=== PATIENT | female | born 1970 | race Two or more races ===

== ENCOUNTER 2016-10-10 13:18 | Emergency (ER) | payer MEDICARE, MEDICAID ==
[2016-10-10 14:13] VITALS: BP 147/97
[2016-10-10] MEDS ORDERED: ASPIRIN 81 MG TABLET, CHEWABLE PO ONE (14:56)
--- NOTE | 2016-10-10 14:57 | ER Document Report ---
ED Medical Screen (RME) - General Chief Complaint: High Blood Sugar Stated Complaint: BLOOD SUGAR Time Seen by Provider: 10/10/16 14:52 Notes: Patient is a 46-year-old female, past medical history IDDM, presents with 2 days of her blood sugar elevated to 390s and 400s. In addition, she has nausea and chest pressure that is intermittent and not associated with food or exercise. PE: RRR. Lungs CTAB. I have greeted and performed a rapid initial assessment of this patient. A comprehensive ED assessment and evaluation of the patient, analysis of test results and completion of the medical decision making process will be conducted by additional ED providers. TRAVEL OUTSIDE OF THE [place] IN LAST 30 DAYS: No - Related Data Allergies/Adverse Reactions: oxycodone HCl [From Percocet] Allergy (Verified 10/10/16 14:08) Past Medical History - Past Medical History Cardiac Medical History: Reports: Hx Hypertension Neurological Medical History: Reports: Hx Migraine, Hx Seizures - "Anxiety Induced Seizures" Endocrine Medical History: Reports: Hx Diabetes Mellitus Type 2 Renal/ Medical History: Reports: Hx Kidney Stones - had surgery last dec/ jan. Denies: Hx Peritoneal Dialysis Musculoskeltal Medical History: Reports Hx Fibromyalgia Psychiatric Medical History: Reports: Hx Anxiety, Hx Depression - anxiety Past Surgical History: Reports: Hx Section - 3, Hx Cholecystectomy, Hx Kidney (Renal Surgery), Hx Orthopedic Surgery - foot surgery - Immunizations Immunizations up to date: Yes Hx Diphtheria, Pertussis, Tetanus Vaccination: Yes Physical Exam - Vital signs Vitals: Temp Pulse Resp BP Pulse Ox 98.3 F 93 20 147/97 H 98 10/10/16 14:11 10/10/16 14:11 10/10/16 14:11 10/10/16 14:11 10/10/16 14:11 Course - Vital Signs Vital signs: Temp Pulse Resp BP Pulse Ox 98.3 F 93 20 147/97 H 98 10/10/16 14:11 10/10/16 14:11 10/10/16 14:11 10/10/16 14:11 10/10/16 14:11 - Laboratory Laboratory results interpreted by me: 10/10/16 14:18 POC Glucose 252 H
[2016-10-10 15:32] LABS: ABSOLUTE EOSINOPHILS # (AUTO) 0.1 10^3/uL (0.0-0.6); ABSOLUTE LYMPHOCYTES (AUTO) 1.8 10^3/uL (0.5-4.7); ABSOLUTE MONOCYTES (AUTO) 0.7 10^3/uL (0.1-1.4); ABSOLUTE NEUT (AUTO) 6.2 10^3/uL (1.7-8.2); BASOPHILS % (AUTO) 0.4 % (0-2); EOSINOPHILS % (AUTO) 1.6 % (0-6); HEMATOCRIT 41.2 % (36.0-47.0); HEMOGLOBIN 13.7 g/dL (12.0-15.5); HGB HCT DIFFERENCE -0.1; LYMPHOCYTES % (AUTO) 20.5 % (13-45); MEAN CORPUSCULAR HEMOGLOBIN 28.1 pg (27.0-33.4); MEAN CORPUSCULAR HGB CONC 33.3 g/dL (32.0-36.0); MEAN CORPUSCULAR VOLUME 85 fl (80-97); MONOCYTES % (AUTO) 7.8 % (3-13); RED BLOOD COUNT 4.88 10^6/uL (3.72-5.28); RED CELL DISTRIBUTION WIDTH 14.1 % (11.5-14.0); SEGMENTED NEUTROPHILS % (AUTO) 69.7 % (42-78)
[2016-10-10 15:47] LABS: ALANINE AMINOTRANSFERASE 86 U/L (9-52); ALBUMIN 4.3 g/dL (3.5-5.0); ALKALINE PHOSPHATASE 81 U/L (38-126); ANION GAP 9 (5-19); ASPARTATE AMINO TRANSFERASE 47 U/L (14-36); BILIRUBIN,DIRECT 0.4 mg/dL (0.0-0.4); BILIRUBIN,TOTAL 0.6 mg/dL (0.2-1.3); BLOOD UREA NITROGEN 12 mg/dL (7-20); CALCIUM 10.5 mg/dL (8.4-10.2); CARBON DIOXIDE 30 mmol/L (22-30); CHLORIDE 101 mmol/L (98-107); CREATINE KINASE 56 U/L (30-135); GLUCOSE 233 mg/dL (75-110); LIPASE 92.6 U/L (23-300); POTASSIUM 4.4 mmol/L (3.6-5.0); SODIUM 140.4 mmol/L (137-145); TOTAL PROTEIN 7.6 g/dL (6.3-8.2)
--- NOTE | 2016-10-10 15:48 | RADIOLOGY REPORT (SQ) ---
EXAM DESCRIPTION: CHEST PA/LAT COMPLETED DATE/TIME: 10/10/2016 3:36 pm REASON FOR STUDY: chest pain COMPARISON: 03/18/2016 EXAM PARAMETERS: NUMBER OF VIEWS: two views TECHNIQUE: Digital Frontal and Lateral radiographic views of the chest acquired. RADIATION DOSE: NA LIMITATIONS: none FINDINGS: LUNGS AND PLEURA: No opacities, masses or pneumothorax. No pleural effusion. MEDIASTINUM AND HILAR STRUCTURES: No masses or contour abnormalities. HEART AND VASCULAR STRUCTURES: Heart normal size. No evidence for failure. BONES: No acute findings. HARDWARE: None in the chest. OTHER: No other significant finding. IMPRESSION: NO SIGNIFICANT RADIOGRAPHIC FINDING IN THE CHEST. TECHNICAL DOCUMENTATION: JOB ID: [id number] [employer]- All Rights Reserved
[2016-10-10 15:58] LABS: TROPONIN I < 0.012 ng/mL
--- NOTE | 2016-10-10 16:43 | ER Document Report ---
ED Blood Sugar Problem - General Chief Complaint: High Blood Sugar Stated Complaint: BLOOD SUGAR Time Seen by Provider: 10/10/16 14:52 Notes: Patient is a 46-year-old female, past medical history diabetes, waters, presents with 2 days of hyperglycemia. Her sugars this weekend were 390's and 400's. Her insulin was recently increased by her primary care physician last week. When she checks her sugar and it is elevated, she feels a dull chest ache. She is not having any chest pain at this time and denies shortness of breath, nausea , vomiting, back pain, fevers, headache, leg swelling or back pain. TRAVEL OUTSIDE OF THE [place] IN LAST 30 DAYS: No - Related Data Allergies/Adverse Reactions: oxycodone HCl [From Percocet] Allergy (Verified 10/10/16 14:08) Past Medical History - General Information source: Patient - Social History Smoking Status: Never Smoker Family History: Reviewed & Not Pertinent Patient has suicidal ideation: No Patient has homicidal ideation: No - Past Medical History Cardiac Medical History: Reports: Hx Hypertension Neurological Medical History: Reports: Hx Migraine, Hx Seizures - "Anxiety Induced Seizures" Endocrine Medical History: Reports: Hx Diabetes Mellitus Type 2 Renal/ Medical History: Reports: Hx Kidney Stones - had surgery last dec/ jan. Denies: Hx Peritoneal Dialysis Musculoskeltal Medical History: Reports Hx Fibromyalgia Psychiatric Medical History: Reports: Hx Anxiety, Hx Depression - anxiety Past Surgical History: Reports: Hx Section - 3, Hx Cholecystectomy, Hx Kidney (Renal Surgery), Hx Orthopedic Surgery - foot surgery - Immunizations Immunizations up to date: Yes Hx Diphtheria, Pertussis, Tetanus Vaccination: Yes Review of Systems - Review of Systems Notes: REVIEW OF SYSTEMS: CONSTITUTIONAL: -fevers, -chills EENT: -eye pain, -difficulty swallowing, -nasal congestion CARDIOVASCULAR: +chest pain, -syncope. RESPIRATORY: -cough, -SOB GASTROINTESTINAL: -abdominal pain, - nausea, -vomiting, -diarrhea GENITOURINARY: -dysuria, -hematuria MUSCULOSKELETAL: -back pain, -neck pain SKIN: -rash or skin lesions. HEMATOLOGIC: -easy bruising or bleeding. LYMPHATIC: -swollen, enlarged glands. NEUROLOGICAL: -altered mental status or loss of consciousness, -headache, - neurologic symptoms PSYCHIATRIC: -anxiety, -depression. ALL OTHER SYSTEMS REVIEWED AND NEGATIVE. Physical Exam - Vital signs Vitals: Temp Pulse Resp BP Pulse Ox 98.3 F 93 20 147/97 H 98 10/10/16 14:11 10/10/16 14:11 10/10/16 14:11 10/10/16 14:11 10/10/16 14:11 - Notes Notes: PHYSICAL EXAMINATION: GENERAL: Well-appearing, well-nourished and in no acute distress. HEAD: Atraumatic, normocephalic. EYES: Pupils equal round and reactive to light, extraocular movements intact, sclera anicteric, conjunctiva are normal. ENT: nares patent, oropharynx clear without exudates. Moist mucous membranes. NECK: Normal range of motion, supple without lymphadenopathy LUNGS: Breath sounds clear to auscultation bilaterally and equal. No wheezes rales or rhonchi. HEART: Regular rate and rhythm without murmurs ABDOMEN: Soft, nontender, normoactive bowel sounds. No guarding, no rebound. No masses appreciated. EXTREMITIES: Normal range of motion, no pitting or edema. No cyanosis. NEUROLOGICAL: Cranial nerves grossly intact. Normal speech, normal gait. Normal sensory and motor exams. PSYCH: Normal mood, normal affect. SKIN: Warm, Dry, normal turgor, no rashes or lesions noted. Course - Re-evaluation Re-evalutation: Pt without any chest pain. Blood glucose is 230 and she does not have an anion gap. EKG and troponin are unremarkable. HEART score 3. PERC naegative. Atypical for aortic dissection. Instructed patient to follow-up with her primary care physician for further evaluation of her chest pain and adjust her diabetes medications. - Vital Signs Vital signs: Temp Pulse Resp BP Pulse Ox 98.3 F 93 20 147/97 H 98 10/10/16 14:11 10/10/16 14:11 10/10/16 14:11 10/10/16 14:11 10/10/16 14:11 - Laboratory Result Diagrams: 10/10/16 15:20 10/10/16 15:20 Laboratory results interpreted by me: 10/10/16 10/10/16 10/10/16 14:18 15:20 15:20 RDW 14.1 H Creatinine 0.50 L Glucose 233 H POC Glucose 252 H Calcium 10.5 H AST 47 H ALT 86 H - Diagnostic Test Radiology reviewed: Image reviewed, Reports reviewed Radiology results interpreted by me: CXR: NAD - EKG Interpretation by Me EKG shows normal: Sinus rhythm, [place], Intervals, QRS Complexes, ST-T Waves Rate: Normal Discharge - Discharge Clinical Impression: Hyperglycemia Chest pain Qualifiers: Chest pain type: unspecified Qualified Code(s): R07.9 - Chest pain, unspecified Condition: Stable Disposition: HOME, SELF-CARE Additional Instructions: Your blood sugar was 232 today. Your EKG and blood test looking at your heart does not show any evidence of a heart attack. You must follow-up with your primary care physician to have your insulin adjusted and for further evaluation of your heart. Return to the ER if you notice any worsening pain or you have any other concerns. HYPERGLYCEMIA (HIGH BLOOD SUGAR): You have an abnormally high blood sugar. Not all high blood sugar requires long-term treatment. High blood sugar can be due to medications, , or the stress of illness. (These cases are "borderline diabetes.") If the doctor feels your high blood sugar might resolve with time, you may not require treatment now. It's very important that you follow through, to see if the blood sugar returns to normal levels. Uncontrolled high blood sugar leads to early heart disease, strokes, nerve damage, eye damage, and kidney damage. Call the physician if there is faintness, excess sleepiness, or very rapid breathing. DIABETES: You have an abnormally high blood sugar, suspicious for diabetes. Not all high blood sugar requires long-term treatment. High blood sugar can be due to medications, , or the stress of illness. (These cases are "borderline diabetes.") If the doctor feels your high blood sugar might get better with time, you may not require treatment now. It's very important that you follow through. Uncontrolled high blood sugar leads to early heart disease, strokes, nerve damage, eye damage, and kidney damage. All diabetics should follow a diet designed to control the blood sugar. Overweight diabetics should exercise regularly and lose weight. If this is not sufficient to control the blood sugar, pills or insulin shots are necessary. Younger people who develop diabetes almost always require insulin daily. Home testing of blood sugars or urine sugar is required. Diabetic teaching is available to help you figure insulin doses and monitor the blood sugar. Call the physician if there is faintness, excess sleepiness, or very rapid breathing. If hypoglycemia (LOW blood sugar) develops, symptoms are shakiness, weakness, sweating, and confusion. In this case, you should eat or drink something with sugar at once. INSULIN: Insulin is a natural hormone that lowers blood sugar. Normal blood sugar prevents complications of diabetes. For most diabetics, insulin is the best way to treat the illness. Be sure you know how to measure the insulin correctly. Insulin is measured in "units." There are three types of insulin: N (NPH or long acting), R (regular or short acting), and L (Lente or very long acting). Be sure you are using the right amount of each type. Insulin must be injected into the fat. You can use the abdomen, upper arms , and thighs. Select a different injection site every time. Wipe the site with alcohol before injecting. When first starting insulin, some adjusting of the insulin dose is necessary. Keep a record of each insulin dose and time of injection, and of the blood sugar and the time you test it. Sometimes insulin can make the blood sugar too low. If you become dizzy, sweaty, shaky, or confused, you may be having a hypoglycemic episode. Immediately use juice or some other sweet food. Call the doctor if the symptoms don't go away. ORAL HYPOGLYCEMIC MEDICATION: Oral hypoglycemics are medicines that lower blood sugar in diabetics. They are not effective for younger diabetics who require insulin. Some brands are tolbutamide, Orinase, glipizide, Glucotrol, glyburide, DiaBeta, Glynase, and Micronase. Some medications can increase or decrease the effect of Diabinese. Examples are Clofibrate (Atromid-S), phenylbutazone (Butazolidin), aspirin, sulfonamides, Coumadin, allopurinol (Zyloprim), probenecid (Benemid), acetazolamide (Diamox), beta blockers, steroids, estrogens, Indocin, INH, Levothyroxine, nicotinic acid, Diflucan, Dilantin, and thiazide diuretics. Be sure your doctor knows all the medicines you take, and talk to your doctor before making any changes in your medicines. If you develop symptoms of shakiness, sweats, and lightheadedness, your blood sugar may have gone too low. Eat or drink a small amount of sweet food. If symptoms don't go away, call your doctor. FOLLOW-UP CARE: If you have been referred to a physician for follow-up care, call the physician s office for an appointment as you were instructed or within the next two days. If you experience worsening or a significant change in your symptoms, notify the physician immediately or return to the Emergency Department at any time for re-evaluation.
--- NOTE | 2016-10-10 18:42 | EKG REPORT ---
SEVERITY:- OTHERWISE NORMAL ECG - SINUS RHYTHM LEFT AXIS DEVIATION : Confirmed by: Benigno Marin MD 10-Oct-2016 18:41:46
== END 2016-10-10 16:47 | disposition home or self-care (01) ==
LOC: ER 13:18
DX: E11.65 Type 2 diabetes mellitus with hyperglycemia (principal); R07.9 Chest pain, unspecified; I10 Essential (primary) hypertension; Z79.4 Long term (current) use of insulin; Z88.6 Allergy status to analgesic agent; Z87.442 Personal history of urinary calculi; Z90.49 Acquired absence of other specified parts of digestive tract
CPT/HCPCS: 93005; 99285; 36415; 82962; 82550; 83690; 85025; 80053; 84484; 83880; 71020; 93010; A9270

== ENCOUNTER 2016-11-20 16:39 | Emergency (ER) | payer MEDICARE, MEDICAID ==
[2016-11-20 16:46] VITALS: BP 195/108
[2016-11-20] MEDS ORDERED: KETOROLAC TROMETHAMINE INJ/PF 30 MG/1 ML SDV IV ONE (17:01)
[2016-11-20] MEDS ORDERED: ONDANSETRON HCL INJ/PF 4 MG/2 ML SDV IV ONE (17:01)
[2016-11-20] MEDS ORDERED: MORPHINE SULFATE 10 MG/ML INJ IV ONE (17:01)
--- NOTE | 2016-11-20 17:04 | ER Document Report ---
ED GI/ - General Chief Complaint: Flank Pain Stated Complaint: RIGHT FLANK PAIN Time Seen by Provider: 11/20/16 16:55 Notes: The patient is a 46-year-old female, past medical history renal mass, presents with 2 days of intermittent right flank pain and passing kidney stones at home. She said the pain got so severe today that she could not handle it, even with Motrin and tramadol. She is noticing hematuria, nausea, vomiting and frequency of urination. She was following with Dr. Young (Urology) for her renal mass, but was told that it could be monitored. She denies fevers, hematemesis, diarrhea, constipation, headache, rash, chest pain or shortness of breath. TRAVEL OUTSIDE OF THE [place] IN LAST 30 DAYS: No - Related Data Allergies/Adverse Reactions: hydrocodone Allergy (Verified 11/20/16 16:53) oxycodone HCl [From Percocet] Allergy (Verified 11/20/16 16:42) Past Medical History - General Information source: Patient - Social History Smoking Status: Current Every Day Smoker Chew tobacco use (# tins/day): No Frequency of alcohol use: None Drug Abuse: None Family History: Reviewed & Not Pertinent Patient has suicidal ideation: No Patient has homicidal ideation: No - Past Medical History Cardiac Medical History: Reports: Hx Hypertension Neurological Medical History: Reports: Hx Migraine, Hx Seizures - "Anxiety Induced Seizures" Endocrine Medical History: Reports: Hx Diabetes Mellitus Type 2 Renal/ Medical History: Reports: Hx Kidney Stones - had surgery last dec/ jan. Denies: Hx Peritoneal Dialysis Musculoskeltal Medical History: Reports Hx Fibromyalgia Psychiatric Medical History: Reports: Hx Anxiety, Hx Depression - anxiety Past Surgical History: Reports: Hx Section - 3, Hx Cholecystectomy, Hx Kidney (Renal Surgery), Hx Orthopedic Surgery - foot surgery - Immunizations Immunizations up to date: Yes Hx Diphtheria, Pertussis, Tetanus Vaccination: Yes Review of Systems - Review of Systems Notes: REVIEW OF SYSTEMS: CONSTITUTIONAL: -fevers, -chills EENT: -eye pain, -difficulty swallowing, -nasal congestion CARDIOVASCULAR:-chest pain, -syncope. RESPIRATORY: -cough, -SOB GASTROINTESTINAL: -abdominal pain, - nausea, -vomiting, -diarrhea GENITOURINARY: -dysuria, +hematuria MUSCULOSKELETAL: +right flank pain, -neck pain SKIN: -rash or skin lesions. HEMATOLOGIC: -easy bruising or bleeding. LYMPHATIC: -swollen, enlarged glands. NEUROLOGICAL: -altered mental status or loss of consciousness, -headache, - neurologic symptoms PSYCHIATRIC: -anxiety, -depression. ALL OTHER SYSTEMS REVIEWED AND NEGATIVE. Physical Exam - Vital signs Vitals: Temp Pulse Resp BP Pulse Ox 98.7 F 83 20 195/108 H 97 11/20/16 16:45 11/20/16 16:45 11/20/16 16:45 11/20/16 16:45 11/20/16 16:45 - Notes Notes: PHYSICAL EXAMINATION: GENERAL: Uncomfortable. HEAD: Atraumatic, normocephalic. EYES: Pupils equal round and reactive to light, extraocular movements intact, sclera anicteric, conjunctiva are normal. ENT: nares patent, oropharynx clear without exudates. Moist mucous membranes. NECK: Normal range of motion, supple without lymphadenopathy LUNGS: Breath sounds clear to auscultation bilaterally and equal. No wheezes rales or rhonchi. HEART: Regular rate and rhythm without murmurs ABDOMEN: Soft, nontender, normoactive bowel sounds. No guarding, no rebound. No masses appreciated. EXTREMITIES: Normal range of motion, no pitting or edema. No cyanosis. NEUROLOGICAL: Cranial nerves grossly intact. Normal speech, normal gait. Normal sensory and motor exams. PSYCH: Normal mood, normal affect. SKIN: Warm, Dry, normal turgor, no rashes or lesions noted. Course - Re-evaluation Re-evalutation: Patient has a 3 mm stone on the right. Labs are unremarkable, other than a slight leukocytosis, most likely stress-induced because there are no signs of infection on her urinalysis. Instructed her to continue anti-inflammatories, her tramadol at home and Tylenol No. 3 for severe pain with antiemetics and follow-up at urology. Also instructed patient to have her blood pressure rechecked at her primary care office it is elevated here, most likely due to the pain. Given return precautions and she understands. - Vital Signs Vital signs: Temp Pulse Resp BP Pulse Ox 98.7 F 83 20 195/108 H 97 11/20/16 16:45 11/20/16 16:45 11/20/16 16:45 11/20/16 16:45 11/20/16 16:45 - Laboratory Result Diagrams: 11/20/16 17:10 11/20/16 17:10 Laboratory results interpreted by me: 11/20/16 11/20/16 11/20/16 17:05 17:10 17:10 WBC 12.4 H RDW 14.2 H Absolute Neutrophils 8.9 H Calcium 10.4 H Urine Protein 30 H Urine Blood LARGE H - Diagnostic Test Radiology reviewed: Image reviewed, Reports reviewed Radiology results interpreted by me: CT A/P: 1. Obstructive uropathy on the right. Moderate hydronephrosis due to a proximal ureteral stone measuring just under 3 mm. Discharge - Discharge Clinical Impression: Kidney stone on right side Condition: Stable Disposition: HOME, SELF-CARE Additional Instructions: KIDNEY STONE: You are passing or have passed a kidney stone. These stones are usually due to increased calcium or uric acid concentrations in your urine. Stones within the kidney itself are not painful. The pain occurs as the stone leaves the kidney to pass down the long tube, called the ureter, leading to the bladder. If the stone is small, it will usually pass by itself. Most patients can pass the stone at home. You will usually receive medications for pain, nausea or vomiting, and sometimes a medication to assist in passing the kidney stone. However, if the pain is very severe or if vomiting prevents you from taking oral pain medications, you may need to return for further treatment. Drink three or four quarts of fluids per day. You will be given pain medication (if needed) and urine strainers. Strain all your urine to see if the stone passes. If your doctor has asked you to bring the stone in for analysis, return with the stone once it has passed. Return if pain or vomiting become severe, if you develop a high fever, if you are unable to pass your urine, or if other unusual symptoms occur. TORADOL INJECTION: You have been given an injection of ketorolac tromethamine (Toradol). This is an excellent, safe drug for pain control. It also has potent antiinflammatory action. You should have significant pain relief within about one hour. Toradol is not addicting and is non-sedating. It does not interfere with driving or work. Call or return if you develop itching, hives, shortness of breath, or rash. PAIN MEDICATION INJECTION: You have received an injection of a pain medication. You should experience significant pain relief within 45 minutes. This drug is a narcotic - - it will impair your judgement, slow your reaction time and make you sleepy ( as well as relieve your pain). Narcotics also can cause nausea. You should not drive, work with machinery, or perform any task requiring mental alertness until all effects of the medication are gone -- six to eight hours. Do not take any alcohol, or sedatives, and do not take any other medication without checking with your physician. ANTINAUSEA MEDICATION: You have been given a medication to suppress nausea and vomiting. This type of medication can be given as a shot, pill, or suppository. It will usually last for many hours. Pills and shots usually last six to eight hours, suppositories last about 12 hours. For the typical illness, only one or two doses of the medication may be necessary. Mild lightheadedness may occur. This type of medicine can cause drowsiness. Do not drive or operate dangerous machinery while under its influence. Do not mix with alcohol. See your doctor at once if you have muscle spasms or tightness, or uncontrollable motions (particularly of the neck, mouth, or jaw). Persistent vomiting or severe lightheadedness should also be evaluated by the physician. ORAL NARCOTIC MEDICATION: You have been given a prescription for pain control. This medication is a narcotic. It's best taken with food, as nausea can result if taken on an empty stomach. Don't operate machinery or drive within six hours of taking this medication. Do not combine this medicine with alcohol, or with any medication which can cause sedation (such as cold tablets or sleeping pills) unless you get permission from the physician. Narcotics tend to cause constipation. If possible, drink plenty of fluids and eat a diet high in fiber and fruits. Please be aware that prescription narcotics also have the potential for abuse. People become addicted to these medications because of the general sense of wellbeing that they induce. This feeling along with a significant reduction in tension, anxiety, and aggression provides a stimulating seductive quality to these drugs. Once your pain is under control, we encourage you to discard your unused narcotics. FOLLOW-UP CARE: If you have been referred to a physician for follow-up care, call the physician s office for an appointment as you were instructed or within the next two days. If you experience worsening or a significant change in your symptoms, notify the physician immediately or return to the Emergency Department at any time for re-evaluation. Prescriptions: Acetaminophen with Codeine [Tylenol #3 Tablet] 1 each PO Q4HP PRN #10 tablet PRN Reason: Ondansetron [Zofran Odt 4 mg Tablet] 1 - 2 tab PO Q4H PRN #15 tab.rapdis PRN Reason: For Nausea/Vomiting Forms: Elevated Blood Pressure Referrals: CALEB YOUNG MD [ACTIVE STAFF] - Follow up as needed
[2016-11-20 17:39] LABS: ABSOLUTE BASOPHILS # (AUTO) 0.1 10^3/uL (0.0-0.2); ABSOLUTE EOSINOPHILS # (AUTO) 0.2 10^3/uL (0.0-0.6); ABSOLUTE LYMPHOCYTES (AUTO) 2.4 10^3/uL (0.5-4.7); ABSOLUTE MONOCYTES (AUTO) 0.8 10^3/uL (0.1-1.4); ABSOLUTE NEUT (AUTO) 8.9 10^3/uL (1.7-8.2); BASOPHILS % (AUTO) 0.5 % (0-2); EOSINOPHILS % (AUTO) 1.7 % (0-6); HEMATOCRIT 42.4 % (36.0-47.0); HEMOGLOBIN 13.6 g/dL (12.0-15.5); HGB HCT DIFFERENCE -1.6; LYMPHOCYTES % (AUTO) 19.5 % (13-45); MEAN CORPUSCULAR HEMOGLOBIN 27.3 pg (27.0-33.4); MEAN CORPUSCULAR VOLUME 85 fl (80-97); MONOCYTES % (AUTO) 6.6 % (3-13); RED BLOOD COUNT 4.97 10^6/uL (3.72-5.28); RED CELL DISTRIBUTION WIDTH 14.2 % (11.5-14.0); SEGMENTED NEUTROPHILS % (AUTO) 71.7 % (42-78); WHITE BLOOD COUNT 12.4 10^3/uL (4.0-10.5)
[2016-11-20 17:48] LABS: APPEARANCE,URINE CLOUDY; BILIRUBIN,URINE NEGATIVE (NEGATIVE); CALCIUM OXALATE CRYSTALS,URINE FEW /HPF; GLUCOSE, URINE NEGATIVE (NEGATIVE); KETONES,URINE NEGATIVE (NEGATIVE); LEUKOCYTE ESTERASE,URINE NEGATIVE (NEGATIVE); NITRITE,URINE NEGATIVE (NEGATIVE); PROTEIN,URINE 30 mg/dL (NEGATIVE); URINE SPECIFIC GRAVITY 1.017; UROBILINOGEN,URINE NEGATIVE mg/dL (<2.0)
[2016-11-20 17:52] LABS: ALANINE AMINOTRANSFERASE 46 U/L (9-52); ALBUMIN 4.3 g/dL (3.5-5.0); ALKALINE PHOSPHATASE 77 U/L (38-126); ANION GAP 10 (5-19); ASPARTATE AMINO TRANSFERASE 23 U/L (14-36); BILIRUBIN,DIRECT 0.3 mg/dL (0.0-0.4); BILIRUBIN,TOTAL 0.3 mg/dL (0.2-1.3); BLOOD UREA NITROGEN 12 mg/dL (7-20); CALCIUM 10.4 mg/dL (8.4-10.2); CARBON DIOXIDE 26 mmol/L (22-30); CHLORIDE 105 mmol/L (98-107); CREATININE RESULT 0.55 mg/dL (0.52-1.25); GLUCOSE 101 mg/dL (75-110); LIPASE 103.7 U/L (23-300); POTASSIUM 4.4 mmol/L (3.6-5.0); SODIUM 141.1 mmol/L (137-145)
--- NOTE | 2016-11-20 17:54 | RADIOLOGY REPORT (SQ) ---
EXAM DESCRIPTION: CT LTD RENAL STONE PROTOCOL ON COMPLETED DATE/TIME: 11/20/2016 5:39 pm REASON FOR STUDY: right flank pain COMPARISON: 2016. TECHNIQUE: CT scan of the abdomen and pelvis performed without intravenous or oral contrast. Images reviewed with lung, soft tissue, and bone windows. Reconstructed coronal and sagittal MPR images revi ewed. All images stored on PACS. All CT scanners at this facility use dose modulation, iterative reconstruction, and/or weight based d osing when appropriate to reduce radiation dose to as low as reasonably achievable (ALARA). [facility]: Dose Right [facility]: CareDose [facility]: Dose Right [facility]: Teradose 4D [facility]: [employer] RADIATION DOSE: Up-to-date CT equipment and radiation dose reduction techniques were employed. CTDIv ol: 10.1 mGy. DLP: 559 mGy-cm.mGy. LIMITATIONS: None. FINDINGS: LOWER CHEST: No significant findings. No nodules or infiltrates. NON-CONTRASTED LIVER, SPLEEN, ADRENALS: Liver and spleen normal. Chronic mild adrenal thickening, st able. PANCREAS: No masses. No peripancreatic inflammatory changes. GALLBLADDER: Surgically absent. RIGHT KIDNEY AND URETER: Moderate hydronephrosis. Dilatation of the very proximal ureter. This appe ars to be due to a stone measuring less than 3 mm which lies just over 3 cm beyond the pelvic-uretera l junction. Additional multifocal nonobstructing stones. LEFT KIDNEY AND URETER: Exophytic septated or multiloculated cyst off the lower pole, stable. Minima l faint associated calcifications. This lesion measures less than 5 cm maximal dimension. No hydron ephrosis. AORTA AND RETROPERITONEUM: No aneurysm. No retroperitoneal masses or adenopathy. BOWEL AND PERITONEAL CAVITY: No obvious masses or inflammatory changes. No free fluid. APPENDIX: Normal. PELVIS, BLADDER, AND ABDOMINAL WALL:No abnormal masses. No free fluid. Bladder normal. BONES: No significant findings. OTHER: No other significant finding. IMPRESSION: 1. Obstructive uropathy on the right. Moderate hydronephrosis due to a proximal uretera l stone measuring just under 3 mm. TECHNICAL DOCUMENTATION: JOB ID: [id number] Quality ID # [id number]: Final reports with documentation of one or more dose reduction techniques (e.g., Au tomated exposure control, adjustment of the mA and/or kV according to patient size, use of iterative reconstruction technique) 2010 [employer]- All Rights Reserved
== END 2016-11-20 18:20 | disposition home or self-care (01) ==
LOC: ER 16:39
DX: N13.2 Hydronephrosis with renal and ureteral calculous obstruction (principal); D72.829 Elevated white blood cell count, unspecified; R11.2 Nausea with vomiting, unspecified; R35.0 Frequency of micturition; R31.0 Gross hematuria; F17.200 Nicotine dependence, unspecified, uncomplicated; I10 Essential (primary) hypertension; E11.9 Type 2 diabetes mellitus without complications; Z88.5 Allergy status to narcotic agent
CPT/HCPCS: 99284; 96374; 96375; 36415; 83690; 85025; 80053; 81001; 76380; J1885; J2270; J2405

== ENCOUNTER 2016-11-22 23:26 | Emergency (ER) | payer MEDICARE, MEDICAID ==
[2016-11-23] MEDS ORDERED: NORMAL SALINE 1000 ML 1,000 ML IV ONE (01:08)
[2016-11-23] MEDS ORDERED: ONDANSETRON HCL INJ/PF 4 MG/2 ML SDV IV ONE (01:08)
[2016-11-23] MEDS ORDERED: MORPHINE SULFATE 10 MG/ML INJ IV ONE (01:08)
[2016-11-23] MEDS ORDERED: TAMSULOSIN HCL 0.4 MG CAP.SR.24H PO ONE (01:10)
[2016-11-23] MEDS ORDERED: KETOROLAC TROMETHAMINE INJ/PF 30 MG/1 ML SDV IV ONE (01:13)
--- NOTE | 2016-11-23 01:36 | ER Document Report ---
ED General - General Chief Complaint: Possible Kidney Stone Stated Complaint: RIGHT FLANK PAIN Time Seen by Provider: 11/23/16 00:55 Mode of Arrival: Ambulatory Information source: Patient TRAVEL OUTSIDE OF THE [place] IN LAST 30 DAYS: No - HPI Recently seen / treated by doctor: Yes Notes: Patient is a 46-year-old female presents to the emergency department with report of right flank pain that she had 3 days ago and had a CT scan which showed a proximal right ureteral stone. The patient had associated right flank to right lower quadrant pain with some nausea and vomiting. The patient had a urine specimen just showed hematuria but otherwise normal lab work. The patient states that she passed a stone consistent with the 3 mm stone noted on CT scan and her pain seemed to subside until 2100 this evening when the pain returned associated with nausea and vomiting. Pain is right flank to right lower quadrant region. No hematemesis. No vaginal discharge. No dysuria. Patient's previous CT scan also evidenced right renal stones measuring 4 mm x 2. - Related Data Allergies/Adverse Reactions: hydrocodone Allergy (Verified 11/23/16 01:46) oxycodone HCl [From Percocet] Allergy (Verified 11/23/16 01:46) Past Medical History - General Information source: Patient - Social History Smoking Status: Never Smoker Frequency of alcohol use: None Drug Abuse: None Lives with: Family Family History: Reviewed & Not Pertinent - Past Medical History Cardiac Medical History: Reports: Hx Hypertension Neurological Medical History: Reports: Hx Migraine, Hx Seizures - "Anxiety Induced Seizures" Endocrine Medical History: Reports: Hx Diabetes Mellitus Type 2 Renal/ Medical History: Reports: Hx Kidney Stones - had surgery last dec/ jan. Denies: Hx Peritoneal Dialysis Musculoskeltal Medical History: Reports Hx Fibromyalgia Psychiatric Medical History: Reports: Hx Anxiety, Hx Depression - anxiety Past Surgical History: Reports: Hx Section - 3, Hx Cholecystectomy, Hx Kidney (Renal Surgery), Hx Orthopedic Surgery - foot surgery - Immunizations Immunizations up to date: Yes Hx Diphtheria, Pertussis, Tetanus Vaccination: Yes Review of Systems - Review of Systems Notes: REVIEW OF SYSTEMS: CONSTITUTIONAL : Denies fever, chills, or sweats. EENT: Denies eye, ear, throat, or mouth pain or symptoms. Denies nasal or sinus congestion or discharge. Denies throat, tongue, or mouth swelling or difficulty swallowing. CARDIOVASCULAR: Denies chest pain. Denies palpitations or racing or irregular heart beat. Denies ankle edema. RESPIRATORY: Denies cough, cold, or chest congestion. Denies shortness of breath, difficulty breathing, or wheezing. GASTROINTESTINAL: Denies abdominal distention. Denies diarrhea. Denies blood in vomitus, stools, or per rectum. Denies black, tarry stools. Denies constipation. GENITOURINARY: Patient reports dysuria and frequency with occasional hematuria. FEMALE GENITOURINARY: Denies vaginal bleeding, heavy or abnormal periods, irregular periods. Denies vaginal discharge or odor. MUSCULOSKELETAL: Denies neck pain or stiffness. Denies joint pain or swelling. SKIN: Denies rash, lesions or sores. HEMATOLOGIC : Denies easy bruising or bleeding. LYMPHATIC: Denies swollen, enlarged glands. NEUROLOGICAL: Denies confusion or altered mental status. Denies passing out or loss of consciousness. Denies dizziness or lightheadedness. Denies headache. Denies weakness or paralysis or loss of use of either side. Denies problems with gait or speech. Denies sensory loss, numbness, or tingling. Denies seizures. PSYCHIATRIC: Denies anxiety or stress. Denies depression, suicidal ideation, or homicidal ideation. ALL OTHER SYSTEMS REVIEWED AND NEGATIVE. Dictation was performed using [employer] voice recognition software Physical Exam - Vital signs Vitals: Temp Pulse Resp BP Pulse Ox 98.2 F 89 18 182/119 H 98 11/23/16 00:18 11/23/16 00:18 11/23/16 00:18 11/23/16 00:18 11/23/16 00:18 - Notes Notes: PHYSICAL EXAMINATION: GENERAL: Well-appearing, well-nourished in obvious distress with nausea holding her back. HEAD: Atraumatic, normocephalic. EYES: Pupils equal round and reactive to light, extraocular movements intact, conjunctiva are normal. ENT: Nares patent, oropharynx clear without exudates. Moist mucous membranes. NECK: Normal range of motion, supple without lymphadenopathy LUNGS: Breath sounds clear to auscultation bilaterally and equal. No wheezes rales or rhonchi. HEART: Regular rate and rhythm without murmurs ABDOMEN: Soft, nondistended abdomen. No guarding, no rebound. No masses appreciated. Female : deferred Musculoskeletal: Normal range of motion, no pitting or edema. No cyanosis. R flank pain rad to R lateral abd. NEUROLOGICAL: Cranial nerves grossly intact. Normal speech, normal gait. Normal sensory, motor exams PSYCH: Normal mood, normal affect. SKIN: Warm, Dry, normal turgor, no rashes or lesions noted. Course - Re-evaluation Re-evalutation: 11/23/16 01:36 Urine was strained. Patient was given normal saline bolus and given IV Toradol Zofran and morphine. Patient was also given p.o. Flomax. 11/23/16 01:36 Stone may have dropped lower vs new stone passing. No evidence for renal insuffic or anemia. No UTI on prior UA. 11/23/16 03:49 Patient had adequate relief of her pain and felt stable for discharge. 11/23/16 03:51 Repeat blood pressure 149/99. 11/23/16 03:55 - Vital Signs Vital signs: Temp Pulse Resp BP Pulse Ox 98.2 F 89 16 149/99 H 97 11/23/16 00:18 11/23/16 00:18 11/23/16 03:10 11/23/16 03:10 11/23/16 03:10 - Laboratory Result Diagrams: 11/23/16 01:30 11/23/16 01:30 Laboratory results interpreted by me: 11/23/16 11/23/16 01:30 01:30 WBC 11.6 H MCHC 31.8 L RDW 14.3 H Glucose 115 H Calcium 10.7 H AST 37 H ALT 72 H Discharge - Discharge Clinical Impression: Ureteral stone, Kidney stone on right side Condition: Stable Disposition: HOME, SELF-CARE Instructions: Kidney Stone ([facility]) Additional Instructions: Drink plenty fluids. Strain your urine to make sure you pass the stone. Follow-up with urology if you do not pass a stone or the pain does not resolve. Return to the ED in case of intractable pain, fever, uncontrolled vomiting. Prescriptions: Hydromorphone HCl [Dilaudid 2 mg Tablet] 2 mg PO Q4HP PRN #30 tablet PRN Reason: Ondansetron [Zofran Odt 4 mg Tablet] 1 tab PO Q8HP PRN #10 tab.rapdis PRN Reason: For Nausea/Vomiting Tamsulosin HCl [Flomax 0.4 mg Cap.sr] 0.4 mg PO DAILY #20 cap.sr.24h Referrals: ESSIE GREGG MD [NO LOCAL MD] - Follow up as needed
[2016-11-23 01:55] LABS: ABSOLUTE BASOPHILS # (AUTO) 0.1 10^3/uL (0.0-0.2); ABSOLUTE EOSINOPHILS # (AUTO) 0.3 10^3/uL (0.0-0.6); ABSOLUTE LYMPHOCYTES (AUTO) 2.4 10^3/uL (0.5-4.7); ABSOLUTE NEUT (AUTO) 7.8 10^3/uL (1.7-8.2); BASOPHILS % (AUTO) 0.7 % (0-2); EOSINOPHILS % (AUTO) 2.9 % (0-6); HEMATOCRIT 42.3 % (36.0-47.0); HEMOGLOBIN 13.5 g/dL (12.0-15.5); HGB HCT DIFFERENCE -1.8; LYMPHOCYTES % (AUTO) 20.7 % (13-45); MEAN CORPUSCULAR HEMOGLOBIN 27.2 pg (27.0-33.4); MEAN CORPUSCULAR HGB CONC 31.8 g/dL (32.0-36.0); MEAN CORPUSCULAR VOLUME 86 fl (80-97); MONOCYTES % (AUTO) 8.7 % (3-13); RED BLOOD COUNT 4.94 10^6/uL (3.72-5.28); RED CELL DISTRIBUTION WIDTH 14.3 % (11.5-14.0); WHITE BLOOD COUNT 11.6 10^3/uL (4.0-10.5)
[2016-11-23 02:04] LABS: ALANINE AMINOTRANSFERASE 72 U/L (9-52); ALBUMIN 4.5 g/dL (3.5-5.0); ALKALINE PHOSPHATASE 87 U/L (38-126); ANION GAP 13 (5-19); ASPARTATE AMINO TRANSFERASE 37 U/L (14-36); BILIRUBIN,DIRECT 0.3 mg/dL (0.0-0.4); BILIRUBIN,TOTAL 0.4 mg/dL (0.2-1.3); BLOOD UREA NITROGEN 17 mg/dL (7-20); CALCIUM 10.7 mg/dL (8.4-10.2); CARBON DIOXIDE 29 mmol/L (22-30); CHLORIDE 100 mmol/L (98-107); CREATININE RESULT 0.97 mg/dL (0.52-1.25); GLUCOSE 115 mg/dL (75-110); POTASSIUM 4.8 mmol/L (3.6-5.0); TOTAL PROTEIN 7.9 g/dL (6.3-8.2)
--- NOTE | 2016-11-23 03:25 | RADIOLOGY REPORT (SQ) ---
EXAM DESCRIPTION: KUB/ABDOMEN (SINGLE VIEW) COMPLETED DATE/TIME: 11/23/2016 2:25 am REASON FOR STUDY: R renal stones COMPARISON: CT, 11/20/2016. NUMBER OF VIEWS: One view. TECHNIQUE: Supine radiographic image of the abdomen acquired. LIMITATIONS: None. FINDINGS: BOWEL GAS PATTERN: Moderate stool retention of the right colon. CALCIFICATIONS: 2, 0.2 cm calcifications of the right paracentral pelvis may indicate a right UVJ/adam dder stones new/progressed compared with CT from 11/20/2016. Punctate bilateral nephrolithiasis. SOFT TISSUES: No gross mass or suggestion of organomegaly. HARDWARE: Right upper abdominal clips. BONES: No acute fracture. No worrisome bone lesions. OTHER: No other significant finding. IMPRESSION: Possible punctate right UVJ/bladder stone. Punctate bilateral nephrolithiasis. TECHNICAL DOCUMENTATION: JOB ID: [id number] [employer]- All Rights Reserved
--- NOTE | 2016-11-23 03:47 | ER Document Report ---
ED General - General Chief Complaint: Possible Kidney Stone Stated Complaint: RIGHT FLANK PAIN Time Seen by Provider: 11/23/16 00:55 Mode of Arrival: Ambulatory Information source: Patient TRAVEL OUTSIDE OF THE [place] IN LAST 30 DAYS: No - Related Data Allergies/Adverse Reactions: hydrocodone Allergy (Verified 11/23/16 01:46) oxycodone HCl [From Percocet] Allergy (Verified 11/23/16 01:46) Past Medical History - General Information source: Patient - Social History Smoking Status: Never Smoker Chew tobacco use (# tins/day): No Frequency of alcohol use: None Drug Abuse: None Lives with: Family Family History: Reviewed & Not Pertinent - Past Medical History Cardiac Medical History: Reports: Hx Hypertension Neurological Medical History: Reports: Hx Migraine, Hx Seizures - "Anxiety Induced Seizures" Endocrine Medical History: Reports: Hx Diabetes Mellitus Type 2 Renal/ Medical History: Reports: Hx Kidney Stones - had surgery last dec/ jan. Denies: Hx Peritoneal Dialysis Musculoskeltal Medical History: Reports Hx Fibromyalgia Psychiatric Medical History: Reports: Hx Anxiety, Hx Depression - anxiety Past Surgical History: Reports: Hx Section - 3, Hx Cholecystectomy, Hx Kidney (Renal Surgery), Hx Orthopedic Surgery - foot surgery - Immunizations Immunizations up to date: Yes Hx Diphtheria, Pertussis, Tetanus Vaccination: Yes Physical Exam - Vital signs Vitals: Temp Pulse Resp BP Pulse Ox 98.2 F 89 18 182/119 H 98 11/23/16 00:18 11/23/16 00:18 11/23/16 00:18 11/23/16 00:18 11/23/16 00:18 Course - Vital Signs Vital signs: Temp Pulse Resp BP Pulse Ox 98.2 F 89 16 149/99 H 97 11/23/16 00:18 11/23/16 00:18 11/23/16 03:10 11/23/16 03:10 11/23/16 03:10 - Laboratory Result Diagrams: 11/23/16 01:30 11/23/16 01:30 Laboratory results interpreted by me: 11/23/16 11/23/16 01:30 01:30 WBC 11.6 H MCHC 31.8 L RDW 14.3 H Glucose 115 H Calcium 10.7 H AST 37 H ALT 72 H Discharge - Discharge Referrals: ESSIE GREGG MD [NO LOCAL MD] - Follow up as needed
[2016-11-23 04:29] VITALS: BP 128/109
== END 2016-11-23 04:15 | disposition home or self-care (01) ==
LOC: ER 23:26
DX: N20.2 Calculus of kidney with calculus of ureter (principal); R11.2 Nausea with vomiting, unspecified; R31.9 Hematuria, unspecified; I10 Essential (primary) hypertension; E11.9 Type 2 diabetes mellitus without complications; Z98.890 Other specified postprocedural states; Z88.5 Allergy status to narcotic agent; Z90.49 Acquired absence of other specified parts of digestive tract
CPT/HCPCS: 99284; 96361; 96374; 96375; 36415; 85025; 80053; 74000; J1885; J2270; A9270; J2405; J7030

== ENCOUNTER 2017-03-01 01:10 | Emergency (ER) | payer MEDICARE, MEDICAID ==
[2017-03-01 01:28] VITALS: BP 151/93
--- NOTE | 2017-03-01 02:42 | ER Document Report ---
ED General - General Chief Complaint: Other Stated Complaint: BODY PAIN Time Seen by Provider: 03/01/17 02:25 Notes: Patient is a 38-year-old female who presents with complaint of pain throughout her body consistent with her fibromyalgia. She says that she gets flares of fibromyalgia but this 1 is been ongoing longer than usual. It has been ongoing for several days now. She went to her doctor today and had a shot of Toradol which said helped for 2 hours but then her pain returned. Her pain is across her shoulders and down her arms. Also across her back.'s across her rib cage. Is also into her hips and into her thighs. No joint swelling. No fevers. No recent infections. No recent trauma or injuries. Patient said she is allergic to opiate medications. Patient is on gabapentin. She says she has had Lyrica in the past but made her swell. Patient has tried Motrin. She has also tried Tylenol. TRAVEL OUTSIDE OF THE [place] IN LAST 30 DAYS: No - Related Data Allergies/Adverse Reactions: hydrocodone Allergy (Verified 11/23/16 01:46) oxycodone HCl [From Percocet] Allergy (Verified 11/23/16 01:46) Past Medical History - Social History Smoking Status: Unknown if Ever Smoked Frequency of alcohol use: None Drug Abuse: None Family History: Reviewed & Not Pertinent Patient has suicidal ideation: No Patient has homicidal ideation: No - Past Medical History Cardiac Medical History: Reports: Hx Hypertension Neurological Medical History: Reports: Hx Migraine, Hx Seizures - "Anxiety Induced Seizures" Endocrine Medical History: Reports: Hx Diabetes Mellitus Type 2 Renal/ Medical History: Reports: Hx Kidney Stones - had surgery last dec/ jan. Denies: Hx Peritoneal Dialysis Musculoskeltal Medical History: Reports Hx Fibromyalgia Psychiatric Medical History: Reports: Hx Anxiety, Hx Depression - anxiety Past Surgical History: Reports: Hx Section - 3, Hx Cholecystectomy, Hx Kidney (Renal Surgery), Hx Orthopedic Surgery - foot surgery - Immunizations Immunizations up to date: Yes Hx Diphtheria, Pertussis, Tetanus Vaccination: Yes Review of Systems - Review of Systems Notes: My Normal Review Basic REVIEW OF SYSTEMS: CONSTITUTIONAL : Denies fever, chills, or sweats. Denies recent illness. EENT: Denies eye, ear, throat, or mouth pain or symptoms. Denies nasal or sinus congestion. CARDIOVASCULAR: Denies chest pain. RESPIRATORY: Denies cough, cold, or chest congestion. Denies shortness of breath, difficulty breathing, or wheezing. GASTROINTESTINAL: Denies abdominal pain. Denies nausea, vomiting, or diarrhea. Denies constipation. Last BM: : MUSCULOSKELETAL: muscle aches. SKIN: Denies rash or skin lesions. NEUROLOGICAL: Denies altered mental status or loss of consciousness. Denies headache. Denies weakness or paralysis or loss of use of either side. Denies problems with gait or speech. Denies sensory or motor loss. ALL OTHER SYSTEMS REVIEWED AND NEGATIVE. Physical Exam - Vital signs Vitals: Temp Pulse Resp BP Pulse Ox 98.3 F 73 18 151/93 H 98 03/01/17 01:25 03/01/17 01:25 03/01/17 01:25 03/01/17 01:25 03/01/17 01:25 - Notes Notes: General Appearance: Well nourished, alert, cooperative, no acute distress, moderate obvious discomfort. Vitals: reviewed, See vital signs table. Head: no swelling or tenderness to the head Eyes: PERRL, EOMI, Conjuctiva clear Mouth: No decreasd moisture Neck: Supple, paraspinal musculature tenderness. Extremities: strength 5/5 in all extremities, good pulses in all extremities, patient has tenderness to palpation of the muscles over her arms, back, trapezius, thighs, and hips. There is no swelling of the joints. No redness to the joints. Skin: warm, dry, appropriate color, no rash Neuro: speech clear, oriented x 3, normal affect, responds appropriately to questions. Course - Re-evaluation Re-evalutation: 03/01/17 06:39 Patient's pain is consistent with her chronic fibromyalgia. Patient herself says it is her fibromyalgia. She wants something further for pain but unfortunately she is allergic to opiates and she is had all other categories of pain medicines including neuropathic pain medicines as well as NSAIDs and Tylenol. She says on these other medications work. I tried at length to try to recommend other pain medication such as a repeat dose of Toradol or Ultram. She says none of these work and she does not want them. She then said that since I cannot think of a different way to treat her pain that she wants to leave. I will discharge her she requests encouraged her follow-up closely with her primary care doctor. Dictation of this chart was performed using voice recognition software; therefore, there may be some unintended grammatical errors. - Vital Signs Vital signs: Temp Pulse Resp BP Pulse Ox 98.3 F 73 18 151/93 H 98 03/01/17 01:25 03/01/17 01:25 03/01/17 01:25 03/01/17 01:25 03/01/17 01:25 Discharge - Discharge Clinical Impression: Whole body pain Condition: Stable Disposition: HOME, SELF-CARE Additional Instructions: Please follow up with your doctor for reevaluation in 1-2 days. Please return to the ER if you have fevers, muscular weakness, or feel that your symptoms are different than you fibromyalgia pain. Forms: Return to Work Referrals: THEO GARAY PA-C [Primary Care Provider] - Follow up tomorrow
== END 2017-03-01 03:04 | disposition home or self-care (01) ==
LOC: ER 01:10
DX: M79.1 Myalgia (principal); M25.511 Pain in right shoulder; M25.512 Pain in left shoulder; M79.602 Pain in left arm; M79.601 Pain in right arm; Z79.899 Other long term (current) drug therapy
CPT/HCPCS: 99281

== ENCOUNTER 2017-06-06 08:07 | Emergency (ER) | payer MEDICARE, MEDICAID ==
[2017-06-06] MEDS ORDERED: LIDOCAINE 2% VISCOUS SOLN 20 ML UDCUP PO ONE (09:34)
[2017-06-06] MEDS ORDERED: MAG HYDROX/AL HYDROX/SIMETH SUSP 30 ML UDCUP PO ONE (09:34)
--- NOTE | 2017-06-06 09:47 | ER Document Report ---
ED Medical Screen (RME) - General Chief Complaint: Abdominal Pain Stated Complaint: VOMITING Time Seen by Provider: 06/06/17 09:26 Notes: 46-year-old female 4 day history nausea vomiting epigastric pain. Pain provoked with anything she eats. Status post cholecystectomy. Think she may have passed some kidney stones during this time also. Epigastric very tender to palpate. Remainder of abdomen is soft nontender other than referring pain to the epigastrium. I have greeted and performed a rapid initial assessment of this patient. A comprehensive ED assessment and evaluation of the patient, analysis of test results and completion of the medical decision making process will be conducted by additional ED providers. TRAVEL OUTSIDE OF THE [place] IN LAST 30 DAYS: No - Related Data Allergies/Adverse Reactions: hydrocodone Allergy (Verified 06/06/17 08:12) oxycodone HCl [From Percocet] Allergy (Verified 06/06/17 08:12) Past Medical History - Social History Chew tobacco use (# tins/day): No Frequency of alcohol use: None Drug Abuse: None - Past Medical History Cardiac Medical History: Reports: Hx Hypertension Neurological Medical History: Reports: Hx Migraine, Hx Seizures - "Anxiety Induced Seizures" Endocrine Medical History: Reports: Hx Diabetes Mellitus Type 2 Renal/ Medical History: Reports: Hx Kidney Stones - had surgery last dec/ jan. Denies: Hx Peritoneal Dialysis Musculoskeltal Medical History: Reports Hx Fibromyalgia Psychiatric Medical History: Reports: Hx Anxiety, Hx Depression - anxiety Past Surgical History: Reports: Hx Section - 3, Hx Cholecystectomy, Hx Kidney (Renal Surgery), Hx Orthopedic Surgery - foot surgery - Immunizations Immunizations up to date: Yes Hx Diphtheria, Pertussis, Tetanus Vaccination: Yes Physical Exam - Vital signs Vitals: Temp Pulse Resp BP Pulse Ox 97.5 F 76 18 162/100 H 98 06/06/17 08:39 06/06/17 08:39 06/06/17 08:39 06/06/17 08:39 06/06/17 08:39 Course - Vital Signs Vital signs: Temp Pulse Resp BP Pulse Ox 98.1 F 129 H 22 H 130/96 H 97 06/06/17 08:44 06/06/17 08:44 06/06/17 08:44 06/06/17 08:44 06/06/17 08:44
[2017-06-06 10:00] LABS: ABSOLUTE EOSINOPHILS # (AUTO) 0.1 10^3/uL (0.0-0.6); ABSOLUTE LYMPHOCYTES (AUTO) 1.3 10^3/uL (0.5-4.7); ABSOLUTE MONOCYTES (AUTO) 0.6 10^3/uL (0.1-1.4); ABSOLUTE NEUT (AUTO) 6.2 10^3/uL (1.7-8.2); BASOPHILS % (AUTO) 0.5 % (0-2); EOSINOPHILS % (AUTO) 0.7 % (0-6); HEMATOCRIT 42.9 % (36.0-47.0); HEMOGLOBIN 14.3 g/dL (12.0-15.5); MEAN CORPUSCULAR HEMOGLOBIN 28.2 pg (27.0-33.4); MEAN CORPUSCULAR HGB CONC 33.3 g/dL (32.0-36.0); MEAN CORPUSCULAR VOLUME 85 fl (80-97); MONOCYTES % (AUTO) 7.4 % (3-13); PLATELET COUNT 287 10^3/uL (150-450); RED BLOOD COUNT 5.06 10^6/uL (3.72-5.28); SEGMENTED NEUTROPHILS % (AUTO) 75.4 % (42-78); TOTAL CELLS COUNTED % (AUTO) 100 %; WHITE BLOOD COUNT 8.3 10^3/uL (4.0-10.5)
[2017-06-06 10:08] LABS: APPEARANCE,URINE SLIGHTLY-CLOUDY; BILIRUBIN,URINE NEGATIVE (NEGATIVE); COLOR,URINE YELLOW; GLUCOSE, URINE NEGATIVE (NEGATIVE); KETONES,URINE NEGATIVE (NEGATIVE); LEUKOCYTE ESTERASE,URINE NEGATIVE (NEGATIVE); NITRITE,URINE NEGATIVE (NEGATIVE); PROTEIN,URINE NEGATIVE (NEGATIVE); URINE SPECIFIC GRAVITY 1.012; UROBILINOGEN,URINE NEGATIVE mg/dL (<2.0)
[2017-06-06 10:23] LABS: ALANINE AMINOTRANSFERASE 53 U/L (9-52); ALBUMIN 4.8 g/dL (3.5-5.0); ALKALINE PHOSPHATASE 72 U/L (38-126); ANION GAP 13 (5-19); ASPARTATE AMINO TRANSFERASE 23 U/L (14-36); BILIRUBIN,DIRECT 0.3 mg/dL (0.0-0.4); BILIRUBIN,TOTAL 0.4 mg/dL (0.2-1.3); BLOOD UREA NITROGEN 10 mg/dL (7-20); CALCIUM 11.3 mg/dL (8.4-10.2); CARBON DIOXIDE 31 mmol/L (22-30); CHLORIDE 101 mmol/L (98-107); GLUCOSE 136 mg/dL (75-110); LIPASE 81.4 U/L (23-300); POTASSIUM 4.3 mmol/L (3.6-5.0); SODIUM 144.5 mmol/L (137-145); TOTAL PROTEIN 7.6 g/dL (6.3-8.2)
[2017-06-06] MEDS ORDERED: ONDANSETRON HCL INJ/PF 4 MG/2 ML SDV IV ONE (12:35)
[2017-06-06] MEDS ORDERED: PANTOPRAZOLE SODIUM 40 MG VIAL IV ONE (12:35)
[2017-06-06] MEDS ORDERED: HYDROMORPHONE HCL INJ/PF 2 MG/ML AMPULE IV ONE (12:39)
--- NOTE | 2017-06-06 12:43 | ER Document Report ---
ED GI/ - General Chief Complaint: Abdominal Pain Stated Complaint: VOMITING Time Seen by Provider: 06/06/17 09:26 Mode of Arrival: Ambulatory Information source: Patient TRAVEL OUTSIDE OF THE [place]. IN LAST 30 DAYS: No - HPI Notes: 06/06/17 12:40 46-year-old female with history of diabetes, kidney stones, cholecystectomy presents with epigastric pain that she describes as burning for approximately 4 days. Does not really seem to radiate. She did develop some vomiting and has had a couple episodes since last night. She has had these associated nausea and only a slight increase in diarrhea that she has that she reports from metformin use. Denies fever. Symptoms are worse with food. She does think that she passed a kidney stone in the last couple days but this is not too unusual. She has had some mild dysuria. Denies chest discomfort or breathing difficulty. She had a appointment with her PCP today but this was moved to the as she comes to the hospital today instead. Denies prior endoscopy. She has had similar episode that is been approximately 1 year ago. She has been using Zantac and Maalox but really no significant improvement overall.. 06/06/17 12:41 06/06/17 12:43 - Related Data Allergies/Adverse Reactions: hydrocodone Allergy (Verified 06/06/17 08:12) oxycodone HCl [From Percocet] Allergy (Verified 06/06/17 08:12) Past Medical History - Social History Smoking Status: Current Some Day Smoker Chew tobacco use (# tins/day): No Frequency of alcohol use: None Drug Abuse: None Family History: Reviewed & Not Pertinent Patient has suicidal ideation: No Patient has homicidal ideation: No - Past Medical History Cardiac Medical History: Reports: Hx Hypertension Neurological Medical History: Reports: Hx Migraine, Hx Seizures - "Anxiety Induced Seizures" Endocrine Medical History: Reports: Hx Diabetes Mellitus Type 2 Renal/ Medical History: Reports: Hx Kidney Stones - had surgery last dec/ jan. Denies: Hx Peritoneal Dialysis Musculoskeltal Medical History: Reports Hx Fibromyalgia Psychiatric Medical History: Reports: Hx Anxiety, Hx Depression - anxiety Past Surgical History: Reports: Hx Section - 3, Hx Cholecystectomy, Hx Kidney (Renal Surgery), Hx Orthopedic Surgery - foot surgery - Immunizations Immunizations up to date: Yes Hx Diphtheria, Pertussis, Tetanus Vaccination: Yes Review of Systems - Review of Systems -: Yes All other systems reviewed and negative Physical Exam - Vital signs Vitals: Temp Pulse Resp BP Pulse Ox 97.5 F 76 18 162/100 H 98 06/06/17 08:39 06/06/17 08:39 06/06/17 08:39 06/06/17 08:39 06/06/17 08:39 Interpretation: Hypertensive - Notes Notes: GENERAL: VS as per nursing doc. Well-appearing, well-nourished and in no acute distress except appears slightly uncomfortable. HEAD: Atraumatic, normocephalic. EYES: Pupils equal round and reactive to light, extraocular movements intact, sclera anicteric, no conjunctival injection or discharge. ENT: Nares patent, oropharynx clear without exudates, moist mucous membranes. NECK: Normal range of motion, supple without lymphadenopathy. LUNGS: Breath sounds clear to auscultation bilaterally and equal. No wheezes rales or rhonchi. HEART: Regular rate and rhythm without murmurs. ABDOMEN: Soft, mild to moderate epigastric tenderness, normoactive bowel sounds. No guarding, no rebound. No masses appreciated. No [place] sign. BACK: No CVA tenderness. EXTREMITIES: Normal range of motion, no calf tenderness, no edema. NEUROLOGICAL: Cranial nerves grossly intact. Normal speech. Normal sensory and motor exams. No gross cerebellar abnormalities. PSYCH: Normal mood, normal affect. SKIN: Warm, dry, normal turgor, no lesions noted. Course - Re-evaluation Re-evalutation: 06/06/17 14:26 Discussed findings with the patient. She knows about the renal cysts and was recommended to go to a treatment center for further evaluation but could not get a ride. I have asked her to let her neurologist though these continue to be growing and she will obtain follow-up. Her symptoms though seem more gastric in nature probably more ulcerative or gastritis type. She has improved at this point. She understands mandatory follow-up needs. At this time, we will discharge the patient with return precautions and follow-up recommendations discussed and understood. Verbal discharge instructions given at the bedside and opportunity for questions given and answered. Medication warnings reviewed. Patient is in agreement with this plan and has verbalized understanding of return precautions and the need for primary care follow-up in the next 24-72 hours in addition to her urology follow-up. - Vital Signs Vital signs: Temp Pulse Resp BP Pulse Ox 98.1 F 129 H 15 167/99 H 98 06/06/17 08:44 06/06/17 08:44 06/06/17 13:11 06/06/17 13:11 06/06/17 13:11 - Laboratory Result Diagrams: 06/06/17 09:39 06/06/17 09:39 Laboratory results interpreted by me: 06/06/17 06/06/17 06/06/17 09:39 09:39 09:39 RDW 15.0 H Carbon Dioxide 31 H Glucose 136 H Calcium 11.3 H ALT 53 H Urine Blood MODERATE H Discharge - Discharge Clinical Impression: Epigastric abdominal pain, Renal cyst Condition: Good Instructions: Abdominal Pain ([facility]) Additional Instructions: Please discuss the renal cysts as discussed with your urologist for follow-up. Use the Nexium or similar [id number] medication daily for 2 weeks even if improving. Make sure you get follow-up as well. Consider contacting the key account coordinator below to arrange follow-up. Call tomorrow. Prescriptions: Tramadol HCl 50 mg PO Q6HP PRN #14 tablet PRN Reason: Esomeprazole Magnesium [Nexium] 40 mg PO DAILY #30 capsule. Ondansetron [Zofran Odt 4 mg Tablet] 1 - 2 tab PO Q4H PRN #15 tab.rapdis PRN Reason: For Nausea/Vomiting Forms: Elevated Blood Pressure Referrals: THEO GARAY PA-C [Primary Care Provider] - Follow up as needed DAREN MARION MD [ACTIVE STAFF] - Follow up in 3-5 days
--- NOTE | 2017-06-06 14:05 | RADIOLOGY REPORT (SQ) ---
EXAM DESCRIPTION: CT ABD/PELVIS NO ORAL OR IV COMPLETED DATE/TIME: 06/06/2017 1:28 pm REASON FOR STUDY: Abd pain, Hematuria COMPARISON: Abdominal CT scan dated November 2016 and MRI of the abdomen dated December 2015 TECHNIQUE: CT scan of the abdomen and pelvis performed without intravenous or oral contrast. Images reviewed with lung, soft tissue, and bone windows. Reconstructed coronal and sagittal MPR images revi ewed. All images stored on PACS. All CT scanners at this facility use dose modulation, iterative reconstruction, and/or weight based d osing when appropriate to reduce radiation dose to as low as reasonably achievable (ALARA). [facility]: Dose Right [facility]: CareDose [facility]: Dose Right [facility]: Teradose 4D [facility]: [employer] RADIATION DOSE: CT Rad equipment meets quality standard of care and radiation dose reduction techniq ues were employed. CTDIvol: 7.2 mGy. DLP: 416 mGy-cm.mGy. LIMITATIONS: None. FINDINGS: LOWER CHEST: No significant findings. No nodules or infiltrates. NON-CONTRASTED LIVER, SPLEEN, ADRENALS: Evaluation limited by lack of IV contrast. No identified sign ificant masses. The previously described adrenal thickening appears stable. PANCREAS: No masses. No peripancreatic inflammatory changes. GALLBLADDER: Status post cholecystectomy. RIGHT KIDNEY AND URETER: No suspicious masses. Assessment limited by lack of IV contrast. Small non obstructing renal calculi are identified. No hydronephrosis or hydroureter. LEFT KIDNEY AND URETER: The previously described clustered complex cysts in the lower pole of the lef t kidney is again identified and measures slightly larger on the current study measuring 4.9 cm on th e current study compared to 4.6 cm on the previous study. A follow-up MRI of the abdomen may be of v alue for further evaluation. Assessment limited by lack of IV contrast. Small nonobstructing renal calculus is identified. No hydronephrosis or hydroureter. AORTA AND RETROPERITONEUM: No aneurysm. No retroperitoneal masses or adenopathy. BOWEL AND PERITONEAL CAVITY: No obvious masses or inflammatory changes. No free fluid. APPENDIX: Normal. PELVIS, BLADDER, AND ABDOMINAL WALL:The uterus appears mildly enlarged with a lobulated contour sugge sting uterine fibroids. If clinically warranted pelvic ultrasound may be of value for further evalua tion. No free fluid. Bladder normal. BONES: No significant findings. OTHER: No other significant finding. IMPRESSION: Bilateral nonobstructing renal calculi. The previously described clustered complex cyst s in the lower pole of the left kidney measures slightly larger on the current study as noted above. A follow-up MRI of the abdomen may be of value for further evaluation. Other findings as noted abov e COMMENT: Quality ID # [id number]: Final reports with documentation of one or more dose reduction techniques (e.g., Automated exposure control, adjustment of the mA and/or kV according to patient size, use of iterative reconstruction technique) TECHNICAL DOCUMENTATION: JOB ID: [id number] [employer]- All Rights Reserved
[2017-06-06 14:48] VITALS: BP 144/85
== END 2017-06-06 14:45 | disposition home or self-care (01) ==
LOC: ER 08:07
DX: R10.13 Epigastric pain (principal); Q61.01 Congenital single renal cyst; R11.2 Nausea with vomiting, unspecified; R19.7 Diarrhea, unspecified; I10 Essential (primary) hypertension; E11.9 Type 2 diabetes mellitus without complications; Z79.84 Long term (current) use of oral hypoglycemic drugs; Z90.49 Acquired absence of other specified parts of digestive tract; R30.0 Dysuria; Z88.5 Allergy status to narcotic agent
CPT/HCPCS: 99284; 96375; 96365; 36415; 83690; 85025; 80053; 81001; 74176; J3490; J1170; C9113; J2405; S0164

== ENCOUNTER 2017-06-10 08:21 | Emergency (ER) | payer MEDICARE, MEDICAID ==
[2017-06-10] MEDS ORDERED: ONDANSETRON 4 MG TAB.RAPDIS PO ONE (09:46)
[2017-06-10] MEDS ORDERED: KETOROLAC TROMETHAMINE 60 MG/2 ML SDV IM ONE (09:46)
[2017-06-10] MEDS ORDERED: PROMETHAZINE HCL 25 MG TABLET PO ONE (09:46)
--- NOTE | 2017-06-10 09:46 | ER Document Report ---
ED GI/ - General Chief Complaint: Possible Kidney Stone Stated Complaint: LOWER BACK ABDOMINAL PAIN Time Seen by Provider: 06/10/17 09:21 TRAVEL OUTSIDE OF THE U.S. IN LAST 30 DAYS: No - Related Data Allergies/Adverse Reactions: hydrocodone Allergy (Verified 06/06/17 08:12) oxycodone HCl [From Percocet] Allergy (Verified 06/06/17 08:12) Past Medical History - Social History Family History: Reviewed & Not Pertinent - Past Medical History Cardiac Medical History: Reports: Hx Hypertension Neurological Medical History: Reports: Hx Migraine, Hx Seizures - "Anxiety Induced Seizures" Endocrine Medical History: Reports: Hx Diabetes Mellitus Type 2 Renal/ Medical History: Reports: Hx Kidney Stones - had surgery last dec/ jan. Denies: Hx Peritoneal Dialysis Musculoskeltal Medical History: Reports Hx Fibromyalgia Psychiatric Medical History: Reports: Hx Anxiety, Hx Depression - anxiety Past Surgical History: Reports: Hx Section - 3, Hx Cholecystectomy, Hx Kidney (Renal Surgery), Hx Orthopedic Surgery - foot surgery - Immunizations Immunizations up to date: Yes Hx Diphtheria, Pertussis, Tetanus Vaccination: Yes Physical Exam - Vital signs Vitals: Temp Pulse Resp BP Pulse Ox 97.9 F 84 18 137/81 H 99 06/10/17 08:26 06/10/17 08:26 06/10/17 08:26 06/10/17 08:26 06/10/17 08:26 Course - Vital Signs Vital signs: Temp Pulse Resp BP Pulse Ox 97.9 F 84 18 137/81 H 99 06/10/17 08:26 06/10/17 08:26 06/10/17 08:26 06/10/17 08:26 06/10/17 08:26
--- NOTE | 2017-06-10 09:50 | ER Document Report ---
ED GI/ - General Chief Complaint: Possible Kidney Stone Stated Complaint: LOWER BACK ABDOMINAL PAIN Time Seen by Provider: 06/10/17 09:21 Notes: Patient is complaining of pain in the left back and flank region radiating around to the left front of her abdomen. This been going on for a while. She was seen here on the , just 4 days ago, for the same pain and had a noncontrasted CT scan of the abdomen and pelvis which showed a known cyst of the left kidney as well as small calcium stones in the renal pelvis, but no stones in either ureter and no obstructive uropathy present. Patient saw her primary care provider yesterday who is trying to arrange for her to be evaluated at [facility] for the renal cyst. Patient has tramadol for pain, but says it makes her nauseated and vomiting and she does not have anything to take for vomiting. Patient says she is allergic to hydrocodone and oxycodone. Patient says she has had a history of kidney stones in the past and in 2012 had a stent placed and then some urological procedure to remove the stones. She did not get an open procedure done at that time. Has had some vomiting currently. No diarrhea. No UTI symptoms. Denies fever. PMH: Kidney stones, IDDM, GERD, fibromyalgia, panic attacks on Xanax, she has Cymbalta, prescribed for depression, but the patient says she is not depressed so she does not take that medication. History of cholecystectomy. TRAVEL OUTSIDE OF THE [place]. IN LAST 30 DAYS: No - Related Data Allergies/Adverse Reactions: hydrocodone Allergy (Verified 06/06/17 08:12) oxycodone HCl [From Percocet] Allergy (Verified 06/06/17 08:12) Past Medical History - Social History Smoking Status: Current Every Day Smoker Family History: Reviewed & Not Pertinent - Past Medical History Cardiac Medical History: Reports: Hx Hypertension Neurological Medical History: Reports: Hx Migraine, Hx Seizures - "Anxiety Induced Seizures" Endocrine Medical History: Reports: Hx Diabetes Mellitus Type 2 Renal/ Medical History: Reports: Hx Kidney Stones - had surgery last dec/jan Musculoskeltal Medical History: Reports Hx Fibromyalgia Psychiatric Medical History: Reports: Hx Anxiety, Hx Depression - anxiety Past Surgical History: Reports: Hx Section - 3, Hx Cholecystectomy, Hx Kidney (Renal Surgery), Hx Orthopedic Surgery - foot surgery - Immunizations Immunizations up to date: Yes Hx Diphtheria, Pertussis, Tetanus Vaccination: Yes Review of Systems - Review of Systems Notes: CONSTITUTIONAL : Denies fever. CARDIOVASCULAR: Denies chest pain. RESPIRATORY: Denies cough, chest congestion, or shortness of breath. GASTROINTESTINAL: Left abdominal pain with nausea and vomiting which the patient thinks is due to the tramadol she was prescribed.. GENITOURINARY: Denies difficulty or painful urinating, urinary frequency, blood in urine. Physical Exam - Vital signs Vitals: Temp Pulse Resp BP Pulse Ox 97.9 F 84 18 137/81 H 99 06/10/17 08:26 06/10/17 08:26 06/10/17 08:26 06/10/17 08:26 06/10/17 08:26 Interpretation: Normal - Notes Notes: PHYSICAL EXAMINATION: GENERAL: Well-appearing, but appears to be in pain, near tears. HEAD: Atraumatic, normocephalic. NECK: Normal range of motion, supple. LUNGS: Breath sounds clear and equal bilaterally. HEART: Regular rate and rhythm without murmurs. ABDOMEN: Patient is tender in the lower left abdomen and suprapubic region. No guarding or rebound present. BACK: Tender to percussion in the left flank region, but otherwise no tenderness throughout remaining back. EXTREMITIES: Normal range of motion without pain. NEUROLOGICAL: Normal speech, normal gait. Normal sensory, motor, and reflex exams. Awake, alert, and oriented x3. Cranial nerves normal. PSYCH: Normal mood, normal affect. SKIN: Warm, dry, no rashes. Course - Re-evaluation Re-evalutation: 06/10/17 20:56 Labs were all essentially normal. I did not see a reason to repeat the patient' s CT scan that was just done on the , 4 days ago. I have given her some medication for the nausea for her to take along with the tramadol. I have also given her a prescription for 10 Dilaudid to last her until she can see her doctor on Monday. - Vital Signs Vital signs: Temp Pulse Resp BP Pulse Ox 97.5 F 76 16 132/81 H 98 06/10/17 11:33 06/10/17 11:33 06/10/17 11:33 06/10/17 11:33 06/10/17 11:33 - Laboratory Result Diagrams: 06/10/17 10:00 06/10/17 10:00 Laboratory results interpreted by me: 06/10/17 06/10/17 06/10/17 10:00 10:00 10:10 RDW 15.1 H Glucose 119 H Calcium 11.0 H Urine Blood LARGE H Discharge - Discharge Clinical Impression: Hematuria, Flank pain, Renal cyst Condition: Stable Disposition: HOME, SELF-CARE Additional Instructions: Hematuria Hematuria, or blood in your urine, can be caused by minor medical problems , such as a bladder infection, or by more serious medical conditions, such as kidney stones or even tumors of the bladder or kidney. If the cause of the hematuria is known (such as a bladder infection) and can be treated, it may not need further evaluation. If the cause is not known, it will usually require further evaluation by a specialist, such as a urologist. In particular, unexplained hematuria in the older patient must be evaluated to rule out a serious condition, such as a bladder or kidney tumor. If the hematuria worsens or you are passing clots and then are unable to urinate, you should be re-evaluated. A catheter may need to be placed in the bladder to permit passage of urine. If you develop high fever, severe pain, or other new or worsening symptoms, return to the Emergency Department for re- evaluation. Flank Pain We weren't able to prove an exact cause for your flank pain. Pain in the flank can be caused by a muscle strain or spasm. Sometimes a kidney stone causes pain, but can't be found on our tests. Infection in the kidney should be evident on a urine test. Early shingles can occasionally cause flank pain, without the rash that proves the diagnosis. On rare occasions, disease of the pancreas, aorta, spleen, or colon can create pain in the flank. At this time, there's no evidence of a dangerous condition, and it seems safe for you to be at home. If the pain goes away and does not come back, no further testing will be needed. If pain persists, or becomes more severe, we may need to repeat some tests or order additional new testing. Blood in the urine, urgency to urinate frequently, and pain that radiates to the groin can indicate a kidney stone. Fever may mean that the pain is due to infection, either of the kidney or the colon (diverticulitis). If your pain is early shingles, you should develop an eruption of blisters in the painful area within a few days. Call the doctor or return if you have pain that is spreading or becoming more severe, pain that does not resolve with time, fever, or any other new symptoms. Possible KIDNEY STONE: You have blood in your urine and may be passing another kidney stone. However, when you had your CT scan done here 4 days ago, it did not show a stone in either of your ureters. These stones are usually due to increased calcium or uric acid concentrations in your urine. Stones within the kidney itself are not painful. The pain occurs as the stone leaves the kidney to pass down the long tube, called the ureter, leading to the bladder. If the stone is small, it will usually pass by itself. Most patients can pass the stone at home. You will usually receive medications for pain, nausea or vomiting, and sometimes a medication to assist in passing the kidney stone. However, if the pain is very severe or if vomiting prevents you from taking oral pain medications, you may need to return for further treatment. Drink three or four quarts of fluids per day. You will be given pain medication (if needed) and urine strainers. Strain all your urine to see if the stone passes. If your doctor has asked you to bring the stone in for analysis, return with the stone once it has passed. Return if pain or vomiting become severe, if you develop a high fever, if you are unable to pass your urine, or if other unusual symptoms occur. TORADOL INJECTION: You have been given an injection of ketorolac tromethamine (Toradol). This is an excellent, safe drug for pain control. It also has potent antiinflammatory action. You should have significant pain relief within about one hour. Toradol is not addicting and is non-sedating. It does not interfere with driving or work. Call or return if you develop itching, hives, shortness of breath, or rash. ANTINAUSEA MEDICATION: You have been given a medication to suppress nausea and vomiting. This type of medication can be given as a shot, pill, or suppository. It will usually last for many hours. Pills and shots usually last six to eight hours, suppositories last about 12 hours. For the typical illness, only one or two doses of the medication may be necessary. Mild lightheadedness may occur. This type of medicine can cause drowsiness. Do not drive or operate dangerous machinery while under its influence. Do not mix with alcohol. See your doctor at once if you have muscle spasms or tightness, or uncontrollable motions (particularly of the neck, mouth, or jaw). Persistent vomiting or severe lightheadedness should also be evaluated by the physician. ORAL NARCOTIC MEDICATION: You have been given a prescription for pain control. This medication is a narcotic. It's best taken with food, as nausea can result if taken on an empty stomach. Don't operate machinery or drive within six hours of taking this medication. Do not combine this medicine with alcohol, or with any medication which can cause sedation (such as cold tablets or sleeping pills) unless you get permission from the physician. Narcotics tend to cause constipation. If possible, drink plenty of fluids and eat a diet high in fiber and fruits. FOLLOW-UP CARE: If you have been referred to a physician for follow-up care, call the physician s office for an appointment as you were instructed or within the next two days. If you experience worsening or a significant change in your symptoms, notify the physician immediately or return to the Emergency Department at any time for re-evaluation. See your primary care provider (Sarah) Monday to prescribe further pain medications. Prescriptions: Hydromorphone HCl [Dilaudid 2 mg Tablet] 2 mg PO Q4HP PRN #10 tablet PRN Reason: Ondansetron [Zofran Odt 4 mg Tablet] 1 - 2 tab PO Q4H PRN #12 tab.rapdis PRN Reason: For Nausea/Vomiting Referrals: THEO GARAY PA-C [Primary Care Provider] - Follow up as needed
[2017-06-10 10:28] LABS: ABSOLUTE BASOPHILS # (AUTO) 0.1 10^3/uL (0.0-0.2); ABSOLUTE EOSINOPHILS # (AUTO) 0.2 10^3/uL (0.0-0.6); ABSOLUTE LYMPHOCYTES (AUTO) 2.1 10^3/uL (0.5-4.7); ABSOLUTE MONOCYTES (AUTO) 0.6 10^3/uL (0.1-1.4); ABSOLUTE NEUT (AUTO) 5.9 10^3/uL (1.7-8.2); BASOPHILS % (AUTO) 1.2 % (0-2); EOSINOPHILS % (AUTO) 1.8 % (0-6); HEMATOCRIT 42.4 % (36.0-47.0); HEMOGLOBIN 14.1 g/dL (12.0-15.5); LYMPHOCYTES % (AUTO) 23.3 % (13-45); MEAN CORPUSCULAR HEMOGLOBIN 28.1 pg (27.0-33.4); MEAN CORPUSCULAR HGB CONC 33.1 g/dL (32.0-36.0); MEAN CORPUSCULAR VOLUME 85 fl (80-97); MONOCYTES % (AUTO) 7.1 % (3-13); PLATELET COUNT 294 10^3/uL (150-450); RED BLOOD COUNT 5.01 10^6/uL (3.72-5.28); RED CELL DISTRIBUTION WIDTH 15.1 % (11.5-14.0); SEGMENTED NEUTROPHILS % (AUTO) 66.6 % (42-78); TOTAL CELLS COUNTED % (AUTO) 100 %; WHITE BLOOD COUNT 8.9 10^3/uL (4.0-10.5)
[2017-06-10 10:41] LABS: APPEARANCE,URINE SLIGHTLY-CLOUDY; BILIRUBIN,URINE NEGATIVE (NEGATIVE); CALCIUM OXALATE CRYSTALS,URINE RARE /HPF; COLOR,URINE YELLOW; GLUCOSE, URINE NEGATIVE (NEGATIVE); KETONES,URINE NEGATIVE (NEGATIVE); LEUKOCYTE ESTERASE,URINE NEGATIVE (NEGATIVE); NITRITE,URINE NEGATIVE (NEGATIVE); PROTEIN,URINE NEGATIVE (NEGATIVE); URINE SPECIFIC GRAVITY 1.017; UROBILINOGEN,URINE NEGATIVE mg/dL (<2.0)
[2017-06-10 10:49] LABS: ALANINE AMINOTRANSFERASE 42 U/L (9-52); ALBUMIN 4.6 g/dL (3.5-5.0); ALKALINE PHOSPHATASE 63 U/L (38-126); ANION GAP 11 (5-19); ASPARTATE AMINO TRANSFERASE 17 U/L (14-36); BILIRUBIN,DIRECT 0.2 mg/dL (0.0-0.4); BILIRUBIN,TOTAL 0.2 mg/dL (0.2-1.3); BLOOD UREA NITROGEN 13 mg/dL (7-20); CARBON DIOXIDE 30 mmol/L (22-30); CHLORIDE 104 mmol/L (98-107); GLUCOSE 119 mg/dL (75-110); LIPASE 91.8 U/L (23-300); POTASSIUM 4.6 mmol/L (3.6-5.0); SODIUM 144.8 mmol/L (137-145); TOTAL PROTEIN 7.3 g/dL (6.3-8.2)
[2017-06-10] MEDS ORDERED: HYDROMORPHONE HCL 2 MG TABLET PO ONE (11:17)
[2017-06-10 11:36] VITALS: BP 132/81
== END 2017-06-10 11:30 | disposition home or self-care (01) ==
LOC: ER 08:21
DX: N28.1 Cyst of kidney, acquired (principal); R31.9 Hematuria, unspecified; R10.9 Unspecified abdominal pain; M54.5 Low back pain; R11.2 Nausea with vomiting, unspecified; E11.9 Type 2 diabetes mellitus without complications; K21.9 Gastro-esophageal reflux disease without esophagitis; Z79.899 Other long term (current) drug therapy; F17.200 Nicotine dependence, unspecified, uncomplicated
CPT/HCPCS: 99284; 96372; 36415; 87086; 83690; 84703; 85025; 80053; 81001; J1885; A9270 ×3; S0119

== ENCOUNTER 2017-06-15 14:42 | Emergency (ER) | payer MEDICARE, MEDICAID ==
[2017-06-15 15:46] LABS: ABSOLUTE BASOPHILS # (AUTO) 0.1 10^3/uL (0.0-0.2); ABSOLUTE EOSINOPHILS # (AUTO) 0.2 10^3/uL (0.0-0.6); ABSOLUTE MONOCYTES (AUTO) 0.8 10^3/uL (0.1-1.4); ABSOLUTE NEUT (AUTO) 6.5 10^3/uL (1.7-8.2); BASOPHILS % (AUTO) 1.1 % (0-2); EOSINOPHILS % (AUTO) 1.9 % (0-6); HEMATOCRIT 42.9 % (36.0-47.0); HEMOGLOBIN 14.4 g/dL (12.0-15.5); LYMPHOCYTES % (AUTO) 28.4 % (13-45); MEAN CORPUSCULAR HEMOGLOBIN 28.6 pg (27.0-33.4); MEAN CORPUSCULAR HGB CONC 33.6 g/dL (32.0-36.0); MEAN CORPUSCULAR VOLUME 85 fl (80-97); MONOCYTES % (AUTO) 7.8 % (3-13); PLATELET COUNT 297 10^3/uL (150-450); RED BLOOD COUNT 5.04 10^6/uL (3.72-5.28); RED CELL DISTRIBUTION WIDTH 15.1 % (11.5-14.0); SEGMENTED NEUTROPHILS % (AUTO) 60.8 % (42-78); TOTAL CELLS COUNTED % (AUTO) 100 %; WHITE BLOOD COUNT 10.7 10^3/uL (4.0-10.5)
[2017-06-15] MEDS ORDERED: KETOROLAC TROMETHAMINE INJ/PF 30 MG/1 ML SDV IV ONE (16:04)
--- NOTE | 2017-06-15 16:07 | ER Document Report ---
ED Medical Screen (RME) - General Chief Complaint: Flank Pain Stated Complaint: RIGHT FLANK PAIN Time Seen by Provider: 06/15/17 16:03 Mode of Arrival: Ambulatory Information source: Patient TRAVEL OUTSIDE OF THE [place] IN LAST 30 DAYS: No - HPI Patient complains to provider of: abdo pain Notes: 06/15/17 16:05 Patient is here with complaints of abdominal pain and flank pain. The patient has a history of kidney stones as well as a cyst on her left kidney. She was seen here several days ago had a noncontrast CT showing nonobstructive bilateral kidney stones and an increasing left renal cyst. She was sent to a urologist in [place] today. Patient states that her pain has gotten significantly worse at this time. She is having a difficult time localizing the pain that she is having at this time. On exam the patient does appear to be uncomfortable. She has a nonfocal abdominal exam in this limited exam in the triage chair. Due to the fact that her pain seems to be worsening, I have ordered a lactate to rule out mesenteric ischemia as well as an IV contrasted CT to rule out any other potential source that would not of been evaluated on the noncontrast CT performed earlier this week due to her increasing pain. Patient was evaluated in triage and was medically screened. Any pertinent orders based on the patient's complaints were ordered at this time. Patient will require further evaluation and will be taken to a room for further evaluation by another provider. This was explained to the patient and/or family at this time. - Related Data Allergies/Adverse Reactions: hydrocodone Allergy (Verified 06/15/17 14:43) oxycodone HCl [From Percocet] Allergy (Verified 06/15/17 14:43) Past Medical History - Social History Chew tobacco use (# tins/day): No Frequency of alcohol use: None Drug Abuse: None - Past Medical History Cardiac Medical History: Reports: Hx Hypertension Neurological Medical History: Reports: Hx Migraine, Hx Seizures - "Anxiety Induced Seizures" Endocrine Medical History: Reports: Hx Diabetes Mellitus Type 2 Renal/ Medical History: Reports: Hx Kidney Stones - had surgery last dec/ jan. Denies: Hx Peritoneal Dialysis Musculoskeltal Medical History: Reports Hx Fibromyalgia Psychiatric Medical History: Reports: Hx Anxiety, Hx Depression - anxiety Past Surgical History: Reports: Hx Section - 3, Hx Cholecystectomy, Hx Kidney (Renal Surgery), Hx Orthopedic Surgery - foot surgery - Immunizations Immunizations up to date: Yes Hx Diphtheria, Pertussis, Tetanus Vaccination: Yes Physical Exam - Vital signs Vitals: Temp Pulse Resp BP Pulse Ox 96.6 F L 98 20 179/122 H 99 06/15/17 15:05 06/15/17 15:05 06/15/17 15:05 06/15/17 15:05 06/15/17 15:05 Course - Vital Signs Vital signs: Temp Pulse Resp BP Pulse Ox 96.6 F L 98 20 179/122 H 99 06/15/17 15:05 06/15/17 15:05 06/15/17 15:05 06/15/17 15:05 06/15/17 15:05 - Laboratory Result Diagrams: 06/15/17 15:17 06/15/17 15:17 Laboratory results interpreted by me: 06/15/17 15:17 WBC 10.7 H RDW 15.1 H
[2017-06-15 16:10] LABS: ALANINE AMINOTRANSFERASE 56 U/L (9-52); ALBUMIN 4.8 g/dL (3.5-5.0); ALKALINE PHOSPHATASE 80 U/L (38-126); ANION GAP 11 (5-19); ASPARTATE AMINO TRANSFERASE 56 U/L (14-36); BILIRUBIN,DIRECT 0.3 mg/dL (0.0-0.4); BILIRUBIN,TOTAL 0.4 mg/dL (0.2-1.3); BLOOD UREA NITROGEN 12 mg/dL (7-20); CARBON DIOXIDE 28 mmol/L (22-30); CHLORIDE 102 mmol/L (98-107); GLUCOSE 178 mg/dL (75-110); LIPASE 101.1 U/L (23-300); POTASSIUM 4.1 mmol/L (3.6-5.0); SODIUM 140.8 mmol/L (137-145); TOTAL PROTEIN 8.1 g/dL (6.3-8.2)
--- NOTE | 2017-06-15 20:36 | RADIOLOGY REPORT (SQ) ---
EXAM DESCRIPTION: CT ABD/PELVIS WITH IV ONLY COMPLETED DATE/TIME: 06/15/2017 7:39 pm REASON FOR STUDY: abdo pain, flank pain COMPARISON: 06/06/2017 TECHNIQUE: CT scan of the abdomen and pelvis performed using helical scanning technique with dynamic intravenous contrast injection. No oral contrast. Images reviewed with lung, soft tissue, and bone windows. Reconstructed coronal and sagittal MPR images reviewed. Delayed images for evaluation of the urinary system also acquired. All images stored on PACS. All CT scanners at this facility use dose modulation, iterative reconstruction, and/or weight based d osing when appropriate to reduce radiation dose to as low as reasonably achievable (ALARA). [facility]: Dose Right [facility]: CareDose [facility]: Dose Right [facility]: Teradose 4D [facility]: Plink CONTRAST TYPE AND DOSE: contrast/concentration: Isovue 370.00 mg/ml; Total Contrast Delivered: 81.0 ml; Total Saline Delivered: 43.0 ml RENAL FUNCTION: GFR > 60. RADIATION DOSE: CT Rad equipment meets quality standard of care and radiation dose reduction techniq ues were employed. CTDIvol: 8.4 - 11.9 mGy. DLP: 1156 mGy-cm.. LIMITATIONS: None. FINDINGS: LOWER CHEST: No significant findings. No nodules or infiltrates. LIVER: Normal size. No masses. No dilated ducts. SPLEEN: Normal size. No focal lesions. PANCREAS: No masses. No significant calcifications. No adjacent inflammation or peripancreatic fluid collections. Pancreatic duct not dilated. GALLBLADDER: Surgically absent. ADRENAL GLANDS: No significant masses or asymmetry. RIGHT KIDNEY AND URETER: No solid masses. Small parenchymal cysts. Scattered calcifications. No h ydronephrosis or hydroureter. LEFT KIDNEY AND URETER: 5.3 cm complex cystic mass in the left renal lower pole, some septal thickeni ng and enhancement are present, this is a suspicious lesion and should be further evaluated by Urolog y. Probable 3 mm nonobstructing stone in the bladder portion of the left ureter. Parenchymal calcif ications. No hydronephrosis or hydroureter. AORTA AND VESSELS: No aneurysm. No dissection. Renal arteries, SMA, celiac without stenosis. RETROPERITONEUM: No retroperitoneal adenopathy, hemorrhage or masses. BOWEL AND PERITONEAL CAVITY: No masses or inflammatory changes. No free fluid or peritoneal masses. APPENDIX: Normal. PELVIS: 4 cm fundal fibroid. No free fluid. Normal bladder. ABDOMINAL WALL: No masses. No hernias. BONES: No significant or acute findings. OTHER: No other significant finding. IMPRESSION: Probable 3 mm nonobstructing stone in the bladder portion of the left ureter. 5.3 cm complex cystic mass in the left renal lower pole, some septal thickening and enhancement are p resent, this is a suspicious lesion and should be further evaluated by Urology. TECHNICAL DOCUMENTATION: JOB ID: [id number] Quality ID # [id number]: Final reports with documentation of one or more dose reduction techniques (e.g., Au tomated exposure control, adjustment of the mA and/or kV according to patient size, use of iterative reconstruction technique) 2010 [employer]- All Rights Reserved
[2017-06-15] MEDS ORDERED: MORPHINE SULFATE 10 MG/ML INJ IV ONE (20:41)
[2017-06-15] MEDS ORDERED: ONDANSETRON HCL INJ/PF 4 MG/2 ML SDV IV ONE (20:41)
--- NOTE | 2017-06-15 20:48 | ER Document Report ---
ED GI/ - General Mode of Arrival: Ambulatory Information source: Patient TRAVEL OUTSIDE OF THE [place] IN LAST 30 DAYS: No - HPI Patient complains to provider of: Abdominal pain, Flank pain Onset: Other - 5 days ago Location: LLQ, Left flank, Right flank Associated symptoms: Other - see notes above <LORENZA PANIAGUA - Last Filed: 06/15/17 20:41> <LAINE MCCOLLUM - Last Filed: 06/16/17 04:04> - General Chief Complaint: Flank Pain Stated Complaint: RIGHT FLANK PAIN Time Seen by Provider: 06/15/17 16:03 Notes: 46 year old female with history of kidney stones and a left renal cyst presents to the ED complaining of bilateral flank pain and left sided abdominal pain that started 5 days ago. Patient reports that she was seen in the ED on 2017 regarding abdominal pain and was diagnosed with bilateral kidney stones and a left renal cyst. Patient followed up with her urologist in [place] today. Today, the patient reports that her pain radiates down her left leg and additionally complains of vomiting and hematuria. Patient denies numbness, tingling, diarrhea, and fever. Patient reports that the shot of Toradol helped with the pain. Patient reports that she has been constipated recently, but has a soft bowel movement earlier this morning. (LORENZA PANIAGUA) - Related Data Allergies/Adverse Reactions: hydrocodone Allergy (Verified 06/15/17 14:43) oxycodone HCl [From Percocet] Allergy (Verified 06/15/17 14:43) Past Medical History - General Information source: Patient - Social History Smoking Status: Current Every Day Smoker Chew tobacco use (# tins/day): No Frequency of alcohol use: None Drug Abuse: None Family History: Reviewed & Not Pertinent Patient has suicidal ideation: No Patient has homicidal ideation: No - Past Medical History Cardiac Medical History: Reports: Hx Hypertension Neurological Medical History: Reports: Hx Migraine, Hx Seizures - "Anxiety Induced Seizures" Endocrine Medical History: Reports: Hx Diabetes Mellitus Type 2 Renal/ Medical History: Reports: Hx Kidney Stones - had surgery last dec/ jan. Denies: Hx Peritoneal Dialysis Musculoskeltal Medical History: Reports Hx Fibromyalgia Psychiatric Medical History: Reports: Hx Anxiety, Hx Depression - anxiety Past Surgical History: Reports: Hx Section - 3, Hx Cholecystectomy, Hx Kidney (Renal Surgery), Hx Orthopedic Surgery - foot surgery - Immunizations Immunizations up to date: Yes Hx Diphtheria, Pertussis, Tetanus Vaccination: Yes <LORENZA PANIAGUA - Last Filed: 06/15/17 20:41> Review of Systems - Review of Systems Constitutional: No symptoms reported EENT: No symptoms reported Cardiovascular: No symptoms reported Respiratory: No symptoms reported Gastrointestinal: See HPI, Abdominal pain - left sided, Vomiting, Constipation Genitourinary: See HPI, Flank pain - bilateral, Hematuria Female Genitourinary: No symptoms reported Musculoskeletal: No symptoms reported Skin: No symptoms reported Hematologic/Lymphatic: No symptoms reported Neurological/Psychological: No symptoms reported -: Yes All other systems reviewed and negative <LORENZA PANIAGUA - Last Filed: 06/15/17 20:41> Physical Exam <LORENZA PANIAGUA - Last Filed: 06/15/17 20:41> <LAINE MCCOLLUM - Last Filed: 06/16/17 04:04> - Vital signs Vitals: Temp Pulse Resp BP Pulse Ox 96.6 F L 98 20 179/122 H 99 06/15/17 15:05 06/15/17 15:05 06/15/17 15:05 06/15/17 15:05 06/15/17 15:05 - Notes Notes: GENERAL: Alert, interacts well. No acute distress. HEAD: Normocephalic, atraumatic. EYES: Pupils equal, round, and reactive to light. Extraocular movements intact. ENT: Oral mucosa moist, tongue midline. NECK: Full range of motion. Supple. Trachea midline. LUNGS: Clear to auscultation bilaterally, no wheezes, rales, or rhonchi. No respiratory distress. HEART: Regular rate and rhythm. No murmurs, gallops, or rubs. ABDOMEN: Soft. Mildly distended. Bowel sounds present in all 4 quadrants. Diffuse tenderness to palpation, but worse to the left side. No guarding. BACK: Bilateral CVA tenderness to percussion. EXTREMITIES: Moves all 4 extremities spontaneously. No edema, radial pulses 2/4 bilaterally. No cyanosis. NEUROLOGICAL: Alert and oriented x3. Normal speech. PSYCH: Normal affect, normal mood. SKIN: Warm, dry, normal turgor. No rashes or lesions noted. (LORENZA PANIAGUA) No tenderness to palpation across the sciatic nerve bilaterally. (LAINE MCCOLLUM) Course - Laboratory Result Diagrams: 06/15/17 15:17 06/15/17 15:17 <LORENZA PANIAGUA - Last Filed: 06/15/17 20:41> - Laboratory Result Diagrams: 06/15/17 15:17 06/15/17 15:17 <LAINE MCCOLLUM - Last Filed: 06/16/17 04:04> - Re-evaluation Re-evalutation: 06/15/17 22:30 CBC shows mild leukocytosis at 10.7, CMP shows elevated glucose at 178 otherwise unremarkable, minimal elevations in LFTs, urinalysis shows small blood but no signs of infection. CT scan of the abdomen and pelvis was ordered from triage given her continuing pain. It continues to show 5.3 cm complex cystic mass in the left renal lower pole, recommends further evaluation by urology, patient knows that she has a lesion that is suspicious and needs to be evaluated for cancer. It also shows a 3 mm nonobstructing stone in the lateral portion of the left ureter. There is no hydronephrosis or hydroureter. There is also 4 cm fundal fibroid in the pelvis. Normal bladder. No other acute findings, no signs of infection in the abdomen. Patient does have a large amount of stool in the transverse and descending colon. Patient will follow up with urology for the left renal mass, she will be treated with Flomax, Pyridium, ibuprofen and acetaminophen for the kidney stone. Patient will be given magnesium citrate for her large amount of stool. Patient will be discharged to home. (LAINE MCCOLLUM) - Vital Signs Vital signs: Temp Pulse Resp BP Pulse Ox 97.6 F 72 16 143/91 H 96 06/15/17 22:29 06/15/17 22:29 06/15/17 22:29 06/15/17 22:29 06/15/17 22:29 - Laboratory Laboratory results interpreted by ia: 06/15/17 06/15/17 06/15/17 15:17 15:17 21:20 WBC 10.7 H RDW 15.1 H Glucose 178 H Calcium 11.0 H AST 56 H ALT 56 H Urine Blood SMALL H Discharge <LORENZA PANIAGUA - Last Filed: 06/15/17 20:41> <LAINE MCCOLLUM - Last Filed: 06/16/17 04:04> - Discharge Clinical Impression: Left ureteral stone, Left renal mass Constipated Qualifiers: Constipation type: unspecified constipation type Qualified Code(s): K59.00 - Constipation, unspecified Hypertension Qualifiers: Hypertension type: unspecified Qualified Code(s): I10 - Essential (primary) hypertension Condition: Stable Disposition: HOME, SELF-CARE Additional Instructions: Today you have a 3 mm stone in your left ureter about to drop into the bladder. I expect this to drop into the bladder and your pain going within the next 2- 3 days. Please take the Pyridium, also known as Azo, this will turn her urine orange and it will help decrease the pain from the stone. Please also use ibuprofen 800 mg every 8 hours as needed for pain. You may also use acetaminophen up to 1000 mg every 6 hours as needed for pain. If you develop fevers please return to the emergency department. You have also been prescribed Flomax also known as tamsulosin which will help to open up your ureter and passed the stone more easily. You do have a large amount of stool in your CAT scan, please take the magnesium citrate to help you poop. Please dissolve 1 scoop of MiraLAX in a glass of water once a day to treat constipation. You may increase to twice a day if needed to create soft bowel movements and you may decrease to every other day if you develop diarrhea. You have a mass on your left kidney. It is concerning for possible cancer. Please have this followed up by a urologist. Prescriptions: Phenazopyridine HCl [Pyridium 200 mg Tablet] 200 mg PO TID #15 tablet Tamsulosin HCl [Flomax 0.4 mg Cap.sr] 0.4 mg PO DAILY #7 cap.sr.24h Forms: Elevated Blood Pressure Referrals: THEO GARAY PA-C [Primary Care Provider] - Follow up in 3-5 days Scribe Attestation: 06/16/17 04:04 I personally performed the services described in the documentation, reviewed and edited the documentation which was dictated to the scribe in my presence, and it accurately records my words and actions. (LAINE MCCOLLUM) Scribe Documentation - Scribe Written by Seda:: Seda Colby, 06/15/[id number] acting as scribe for :: Hakeem <LORENZA PANIAGUA - Last Filed: 06/15/17 20:41>
[2017-06-15 21:39] LABS: APPEARANCE,URINE CLEAR; BILIRUBIN,URINE NEGATIVE (NEGATIVE); COLOR,URINE YELLOW; GLUCOSE, URINE NEGATIVE (NEGATIVE); KETONES,URINE NEGATIVE (NEGATIVE); LEUKOCYTE ESTERASE,URINE NEGATIVE (NEGATIVE); NITRITE,URINE NEGATIVE (NEGATIVE); PROTEIN,URINE NEGATIVE (NEGATIVE); URINE SPECIFIC GRAVITY 1.047; UROBILINOGEN,URINE NEGATIVE mg/dL (<2.0)
[2017-06-15 22:38] VITALS: BP 143/91
== END 2017-06-15 22:38 | disposition home or self-care (01) ==
LOC: ER 14:42
DX: N28.89 Other specified disorders of kidney and ureter (principal); N20.1 Calculus of ureter; K59.00 Constipation, unspecified; R10.9 Unspecified abdominal pain; F17.200 Nicotine dependence, unspecified, uncomplicated; I10 Essential (primary) hypertension; Z87.442 Personal history of urinary calculi; Z90.49 Acquired absence of other specified parts of digestive tract
CPT/HCPCS: 99284; 96374; 96375; 36415; 83690; 85025; 80053; 81001; 74177; J1885; J2270; J2405

== ENCOUNTER → 2017-07-11 | Emergency (ER) | payer MEDICARE, MEDICAID ==
[~2017-07-11] MED LIST: HYDROMORPHONE HCL INJ/PF 2 MG/ML AMPULE IV ONE; KETOROLAC TROMETHAMINE INJ/PF 30 MG/1 ML SDV IV ONE; LIDOCAINE 2% INJ-PF (100 MG/5 ML) SYRINGE IV ONE; NORMAL SALINE 1000 ML 1,000 ML IV ONE
--- NOTE | 2017-07-11 13:29 | ER Document Report ---
ED General - General Stated Complaint: LOWER BACK PAIN Time Seen by Provider: 07/11/17 13:05 Notes: 38-year-old female presents with severe low back pain radiating into her left vaginal area worsening since she had a kidney stone removed from the left side endoscopically by Dr. lisa yesterday. She has also renal carcinoma and is on Dilaudid at home. No fever. Positive hematuria but this is been going on ever since before the procedure. EMS gave her fentanyl. TRAVEL OUTSIDE OF THE [place] IN LAST 30 DAYS: No - Related Data Allergies/Adverse Reactions: hydrocodone Allergy (Verified 06/15/17 14:43) oxycodone HCl [From Percocet] Allergy (Verified 06/15/17 14:43) Past Medical History - Social History Smoking Status: Never Smoker Family History: Reviewed & Not Pertinent - Past Medical History Cardiac Medical History: Reports: Hx Hypertension Neurological Medical History: Reports: Hx Migraine, Hx Seizures - "Anxiety Induced Seizures" Endocrine Medical History: Reports: Hx Diabetes Mellitus Type 2 Renal/ Medical History: Reports: Hx Kidney Stones - had surgery last dec/ jan. Denies: Hx Peritoneal Dialysis Musculoskeltal Medical History: Reports Hx Fibromyalgia Psychiatric Medical History: Reports: Hx Anxiety, Hx Depression - anxiety Past Surgical History: Reports: Hx Section - 3, Hx Cholecystectomy, Hx Kidney (Renal Surgery), Hx Orthopedic Surgery - foot surgery - Immunizations Immunizations up to date: Yes Hx Diphtheria, Pertussis, Tetanus Vaccination: Yes Review of Systems - Review of Systems Notes: REVIEW OF SYSTEMS GEN: Denies fever, chills, weight loss ENT: Denies sore throat, nasal discharge, ear pain EYES: Denies blurry vision, eye pain, discharge CV: Denies chest pain, palpitations, edema RESP: Denies cough, shortness of breath, wheezing GI: Denies abdominal pain, nausea, vomiting, diarrhea MSK your back pain SKIN: Denies rash, skin lesions LYMPH: Denies swollen glands/lymph nodes NEURO: Denies headache, focal weakness or numbness, dizziness PSYCH: Denies depression, suicidal or homicidal ideation PHYSICAL EXAMINATION General: Full looks in pain. Head: Atraumatic, normocephalic ENT: Mouth normal, oropharynx moist, no exudates or tonsillar enlargement Eyes: Conjunctiva normal, pupils equal, lids normal Neck: No JVD, supple, no guarding CVS: Normal rate, regular rhythm, no murmurs Resp: No resp distress, equal and normal breath sounds bilaterally GI: Nondistended, soft, minimal left flank and lower quadrant tenderness, Ext: No deformities, no edema, normal range of motion in upper and lower ext Back: CVA tenderness Skin: No rash, warm Lymphatic: No lymphadeopathy noted Neuro: Awake, alert. Face symmetric. GCS 15. Physical Exam - Vital signs Vitals: Temp Pulse BP Pulse Ox 97.9 F 77 144/85 H 94 07/11/17 13:56 07/11/17 13:56 07/11/17 13:56 07/11/17 13:56 Course - Re-evaluation Re-evalutation: 07/11/17 13:29 Left flank pain radiating to the groin after endoscopic kidney stone removal likely reflects stent spasm postoperative pain but less likely infection given lack of fever. She is tender. Could be overlaid on chronic cancer type pain. We will give IV Dilaudid check labs and urine culture because I expect her urinalysis to be full of blood. Will contact Dr. lisa but no imaging at this time. 07/11/17 16:08 Patient continued to have pain and required additional round of Dilaudid. I was also informed by the nurse that the patient has dislodged her ureteral stent in the ED. I rescan her. It showed stone fragments in the right distal ureter causing upstream dilatation. I spoke with Dr. Rivera at [facility] who agreed to accept the patient to the emergency department for possible intervention. - Vital Signs Vital signs: Temp Pulse Resp BP Pulse Ox 97.9 F 77 144/85 H 94 07/11/17 13:56 07/11/17 13:56 07/11/17 13:56 07/11/17 13:56 - Laboratory Result Diagrams: 07/11/17 12:20 07/11/17 12:20 Laboratory results interpreted by me: 07/11/17 07/11/17 07/11/17 12:20 12:20 13:52 WBC 12.0 H RDW 14.7 H Seg Neutrophils % 85.6 H Lymphocytes % 9.4 L Absolute Neutrophils 10.3 H Glucose 185 H POC Glucose 197 H Calcium 10.7 H Discharge - Discharge Clinical Impression: Ureterolithiasis Condition: Fair Disposition: [facility]
[2017-07-11 13:36] LABS: ABSOLUTE LYMPHOCYTES (AUTO) 1.1 10^3/uL (0.5-4.7); ABSOLUTE MONOCYTES (AUTO) 0.6 10^3/uL (0.1-1.4); ABSOLUTE NEUT (AUTO) 10.3 10^3/uL (1.7-8.2); BASOPHILS % (AUTO) 0.2 % (0-2); EOSINOPHILS % (AUTO) 0.2 % (0-6); HEMATOCRIT 41.1 % (36.0-47.0); HEMOGLOBIN 13.6 g/dL (12.0-15.5); LYMPHOCYTES % (AUTO) 9.4 % (13-45); MEAN CORPUSCULAR HGB CONC 33.2 g/dL (32.0-36.0); MEAN CORPUSCULAR VOLUME 85 fl (80-97); MONOCYTES % (AUTO) 4.6 % (3-13); PLATELET COUNT 244 10^3/uL (150-450); RED BLOOD COUNT 4.87 10^6/uL (3.72-5.28); RED CELL DISTRIBUTION WIDTH 14.7 % (11.5-14.0); SEGMENTED NEUTROPHILS % (AUTO) 85.6 % (42-78); TOTAL CELLS COUNTED % (AUTO) 100 %
[2017-07-11 13:48] LABS: ANION GAP 13 (5-19); BLOOD UREA NITROGEN 14 mg/dL (7-20); CALCIUM 10.7 mg/dL (8.4-10.2); CARBON DIOXIDE 26 mmol/L (22-30); CHLORIDE 102 mmol/L (98-107); GLUCOSE 185 mg/dL (75-110); POTASSIUM 4.6 mmol/L (3.6-5.0); SODIUM 141.1 mmol/L (137-145)
--- NOTE | 2017-07-11 15:44 | RADIOLOGY REPORT (SQ) ---
EXAM DESCRIPTION: CT ABD/PELVIS NO ORAL OR IV COMPLETED DATE/TIME: 07/11/2017 3:18 pm REASON FOR STUDY: renal stones COMPARISON: MRI abdomen 01/11/2016 CT abdomen pelvis 06/15/2017, 06/06/2017, 11/20/2016, 11/26/2015, 07/11/2015, 06/25/2014 TECHNIQUE: CT scan of the abdomen and pelvis performed without intravenous or oral contrast. Images reviewed with lung, soft tissue, and bone windows. Reconstructed coronal and sagittal MPR images revi ewed. All images stored on PACS. All CT scanners at this facility use dose modulation, iterative reconstruction, and/or weight based d osing when appropriate to reduce radiation dose to as low as reasonably achievable (ALARA). [facility]: Dose Right [facility]: CareDose [facility]: Dose Right [facility]: Teradose 4D [facility]: [employer] RADIATION DOSE: CT Rad equipment meets quality standard of care and radiation dose reduction techniq ues were employed. CTDIvol: 8.8 mGy. DLP: 514 mGy-cm.mGy. LIMITATIONS: No IV contrast FINDINGS: On the right side, moderate hydronephrosis and upper hydroureter is present down to about the L3-4 disc space. At this point, several small calcifications are present in the right ureter. T hese may represent retained stone fragments. There is a small amount of air in the right mid-pole ca lyx, patient removed her own right ureteral stent earlier today. Elsewhere in the right kidney, tiny less than 5 mm calculi are present in the mid and lower pole. No right renal cysts or masses. No left-sided hydronephrosis or hydroureter. No left ureteral stones. A complex mass in the left lo wer pole kidney is present 5 cm in size worrisome for tumor. This is similar compared to previous st udies. These findings were discussed with Dr. Carrasco in the emergency room. LOWER CHEST: No significant findings. No nodules or infiltrates. NON-CONTRASTED LIVER, SPLEEN, ADRENALS: Evaluation limited by lack of IV contrast. No identified sign ificant masses. PANCREAS: No masses. No peripancreatic inflammatory changes. GALLBLADDER: Surgically absent RIGHT KIDNEY AND URETER: As above LEFT KIDNEY AND URETER: As above AORTA AND RETROPERITONEUM: No aneurysm. No retroperitoneal masses or adenopathy. BOWEL AND PERITONEAL CAVITY: No obvious masses or inflammatory changes. No free fluid. APPENDIX: Normal. PELVIS, BLADDER, AND ABDOMINAL WALL:No abnormal masses. No free fluid. Bladder normal. Post hysterec francisca BONES: No significant findings. OTHER: No other significant finding. IMPRESSION: Right proximal ureteral retained stone fragments with moderate right hydronephrosis and upper hydroureter. Small amount of air in the right renal collecting system. Patient removed her own double-J stent ear lier today as it was migrating out the urethra Complex cystic and solid left lower pole renal mass worrisome for tumor COMMENT: Quality ID # [id number]: Final reports with documentation of one or more dose reduction techniques (e.g., Automated exposure control, adjustment of the mA and/or kV according to patient size, use of iterative reconstruction technique) TECHNICAL DOCUMENTATION: JOB ID: [id number] [employer]- All Rights Reserved
[2017-07-11 18:34] VITALS: BP 188/110
== END | disposition short-term general hospital (02) ==
LOC: ER 12:38
DX: N20.1 Calculus of ureter (principal); C64.2 Malignant neoplasm of left kidney, except renal pelvis; M54.5 Low back pain; R31.9 Hematuria, unspecified; R10.2 Pelvic and perineal pain; Z79.899 Other long term (current) drug therapy
CPT/HCPCS: 96376; 99285; 96361; 96374; 36415; 87086; 82962; 85025; 80048; 74176; J1885; J1170; J7030

== ENCOUNTER 2017-07-15 15:47 | Emergency (ER) | payer MEDICARE, MEDICAID ==
[2017-07-15] MEDS ORDERED: KETOROLAC TROMETHAMINE INJ/PF 30 MG/1 ML SDV IV ONE (15:55)
[2017-07-15] MEDS ORDERED: NORMAL SALINE 1000 ML 1,000 ML IV ONE (15:55)
--- NOTE | 2017-07-15 15:57 | ER Document Report ---
ED Medical Screen (RME) - General Chief Complaint: Possible Kidney Stone Stated Complaint: BACK PAIN Time Seen by Provider: 07/15/17 15:54 Mode of Arrival: Wheelchair Information source: Patient TRAVEL OUTSIDE OF THE [place] IN LAST 30 DAYS: No - HPI Patient complains to provider of: flank pain Onset: Other - pt had kidney stone surgery in English earlier this week and had stent placed. States she is having increased flank pain and difficulty urinating today. - Related Data Allergies/Adverse Reactions: hydrocodone Allergy (Verified 06/15/17 14:43) oxycodone HCl [From Percocet] Allergy (Verified 06/15/17 14:43) Past Medical History - Past Medical History Cardiac Medical History: Reports: Hx Hypertension Neurological Medical History: Reports: Hx Migraine, Hx Seizures - "Anxiety Induced Seizures" Endocrine Medical History: Reports: Hx Diabetes Mellitus Type 2 Renal/ Medical History: Reports: Hx Kidney Stones - had surgery last dec/ jan. Denies: Hx Peritoneal Dialysis Musculoskeltal Medical History: Reports Hx Fibromyalgia Psychiatric Medical History: Reports: Hx Anxiety, Hx Depression - anxiety Past Surgical History: Reports: Hx Section - 3, Hx Cholecystectomy, Hx Kidney (Renal Surgery), Hx Orthopedic Surgery - foot surgery - Immunizations Immunizations up to date: Yes Hx Diphtheria, Pertussis, Tetanus Vaccination: Yes
[2017-07-15] MEDS ORDERED: HYDROMORPHONE HCL INJ/PF 2 MG/ML AMPULE IV ONE (16:00)
[2017-07-15 17:43] LABS: ABSOLUTE BASOPHILS # (AUTO) 0.1 10^3/uL (0.0-0.2); ABSOLUTE EOSINOPHILS # (AUTO) 0.5 10^3/uL (0.0-0.6); ABSOLUTE LYMPHOCYTES (AUTO) 2.3 10^3/uL (0.5-4.7); ABSOLUTE MONOCYTES (AUTO) 0.8 10^3/uL (0.1-1.4); ABSOLUTE NEUT (AUTO) 6.5 10^3/uL (1.7-8.2); BASOPHILS % (AUTO) 0.7 % (0-2); EOSINOPHILS % (AUTO) 5.2 % (0-6); HEMATOCRIT 36.9 % (36.0-47.0); HEMOGLOBIN 12.2 g/dL (12.0-15.5); LYMPHOCYTES % (AUTO) 22.4 % (13-45); MEAN CORPUSCULAR HEMOGLOBIN 28.1 pg (27.0-33.4); MEAN CORPUSCULAR HGB CONC 33.1 g/dL (32.0-36.0); MEAN CORPUSCULAR VOLUME 85 fl (80-97); MONOCYTES % (AUTO) 7.6 % (3-13); PLATELET COUNT 264 10^3/uL (150-450); RED BLOOD COUNT 4.34 10^6/uL (3.72-5.28); RED CELL DISTRIBUTION WIDTH 14.6 % (11.5-14.0); SEGMENTED NEUTROPHILS % (AUTO) 64.1 % (42-78); TOTAL CELLS COUNTED % (AUTO) 100 %; WHITE BLOOD COUNT 10.1 10^3/uL (4.0-10.5)
[2017-07-15 18:04] LABS: ALANINE AMINOTRANSFERASE 73 U/L (9-52); ALBUMIN 3.8 g/dL (3.5-5.0); ALKALINE PHOSPHATASE 71 U/L (38-126); ANION GAP 9 (5-19); ASPARTATE AMINO TRANSFERASE 15 U/L (14-36); BILIRUBIN,DIRECT 0.1 mg/dL (0.0-0.4); BILIRUBIN,TOTAL 0.1 mg/dL (0.2-1.3); BLOOD UREA NITROGEN 10 mg/dL (7-20); CALCIUM 10.1 mg/dL (8.4-10.2); CARBON DIOXIDE 28 mmol/L (22-30); CHLORIDE 106 mmol/L (98-107); GLUCOSE 90 mg/dL (75-110); POTASSIUM 4.1 mmol/L (3.6-5.0); SODIUM 142.5 mmol/L (137-145)
[2017-07-15] MEDS ORDERED: KETAMINE HCL INJ 500 MG/10 ML VIAL IV ONE (18:34)
[2017-07-15] MEDS ORDERED: ONDANSETRON HCL INJ/PF 4 MG/2 ML SDV IV ONE (18:35)
--- NOTE | 2017-07-15 18:40 | ER Document Report ---
ED General - General Chief Complaint: Possible Kidney Stone Stated Complaint: BACK PAIN Time Seen by Provider: 07/15/17 15:54 Mode of Arrival: Wheelchair Notes: Patient is a 46 year old female with a past medical history of recurrent nephrolithiasis, recently had bilateral ureteral stents placed including a revision of the left left ureteral stent 3 days ago who presents with ongoing severe left-sided flank pain. She describes the left-sided flank pain as a severe, stabbing, constant pain that radiates into her left lower abdomen. She has been using oral Dilaudid tablets at home without any significant improvement of the pain. Nothing worsens the pain. She notes that she has never had similar symptoms in the past with prior ureteral stent placements. She has not yet followed up with urologist who placed a stent but is scheduled for follow-up this upcoming Monday. She denies any fever, chest pain or shortness of breath but has had associated nausea and vomiting. TRAVEL OUTSIDE OF THE [place] IN LAST 30 DAYS: No - Related Data Allergies/Adverse Reactions: hydrocodone Allergy (Verified 07/15/17 15:57) oxycodone HCl [From Percocet] Allergy (Verified 07/15/17 15:57) Past Medical History - General Information source: Patient - Social History Smoking Status: Current Every Day Smoker Chew tobacco use (# tins/day): No Frequency of alcohol use: None Drug Abuse: None Lives with: Family Family History: Reviewed & Not Pertinent Patient has suicidal ideation: No Patient has homicidal ideation: No - Past Medical History Cardiac Medical History: Reports: Hx Hypertension Neurological Medical History: Reports: Hx Migraine, Hx Seizures - "Anxiety Induced Seizures" Endocrine Medical History: Reports: Hx Diabetes Mellitus Type 2 Renal/ Medical History: Reports: Hx Kidney Stones - had surgery last dec/ jan. Denies: Hx Peritoneal Dialysis Musculoskeltal Medical History: Reports Hx Fibromyalgia Psychiatric Medical History: Reports: Hx Anxiety, Hx Depression - anxiety Past Surgical History: Reports: Hx Section - 3, Hx Cholecystectomy, Hx Kidney (Renal Surgery), Hx Orthopedic Surgery - foot surgery - Immunizations Immunizations up to date: Yes Hx Diphtheria, Pertussis, Tetanus Vaccination: Yes Review of Systems - Review of Systems Notes: Constitutional: Negative for fever. HENT: Negative for sore throat. Eyes: Negative for visual changes. Cardiovascular: Negative for chest pain. Respiratory: Negative for shortness of breath. Gastrointestinal: Positive for left-sided flank pain and lower abdominal pain. Positive for vomiting Genitourinary: Positive for hematuria Musculoskeletal: Negative for back pain. Skin: Negative for rash. Neurological: Negative for headaches, weakness or numbness. 10 point ROS negative except as marked above and in HPI. Physical Exam - Vital signs Vitals: Temp Pulse Resp BP Pulse Ox 98.0 F 79 18 162/86 H 98 07/15/17 15:58 07/15/17 15:58 07/15/17 15:58 07/15/17 15:58 07/15/17 15:58 Interpretation: Hypertensive Notes: PHYSICAL EXAMINATION: GENERAL: Appears extremely uncomfortable, curled up in a position crying HEAD: Atraumatic, normocephalic. EYES: Pupils equal round and reactive to light, extraocular movements intact, sclera anicteric, conjunctiva are normal. ENT: nares patent, oropharynx clear without exudates. Moist mucous membranes. NECK: Normal range of motion, supple without lymphadenopathy LUNGS: Breath sounds clear to auscultation bilaterally and equal. No wheezes rales or rhonchi. HEART: Regular tachycardia without murmurs ABDOMEN: Soft, severe left CVA tenderness but no localized abdominal tenderness. No rebound or guarding. EXTREMITIES: Normal range of motion, no pitting or edema. No cyanosis. NEUROLOGICAL: No focal neurological deficits. Moves all extremities spontaneously and on command. PSYCH: Anxious SKIN: Warm, Dry, normal turgor, no rashes or lesions noted. Course - Re-evaluation Re-evalutation: 07/15/17 18:38 Patient presents in obvious significant pain to the left flank rating into the left lower abdomen with ongoing hematuria and associated vomiting. Patient has apparently had a replacement of ureteral stent 3 days ago after being transferred back to [facility] on 07/11. She reports that upon discharge she was in the amount of pain that she is not currently and has remained so since that time despite using oral Dilaudid at home. The patient appears to be in obvious discomfort despite receiving IV hydromorphone and Toradol. Her labs do not show any significant evidence of acute kidney injury, leukocytosis or urinary tract infection. Primary concern is that the patient is continued to have uncontrolled pain in the setting of a recent surgical procedure and may require reevaluation by the urologist who placed the stent 3 days ago. I am hesitant to reimage this patient as she just had a CT scan less than 4 days ago for the similar presentation and I do not have any clinical suspicion for any new acute pathology as patient reports that this is a continuation of symptoms that she has been having for almost a week. 07/15/17 22:19 Renal ultrasound does not show any recurrent hydronephrosis and KUB does show that ureteral stents are in the appropriate positions. I discussed this case with the urologist rehabilitation manager at [facility] Dr. Dickinson and he states that this is an acceptable location and postoperative course. He also notes that the urinalysis although does show prominent pyuria is not an indicator of an acute infection in this context. The patient's pain has been able to be controlled in the emergency department if she is no longer vomiting. Dr. Dickinson is in agreement with discharging this patient home with pain medication and follow-up as scheduled. The patient is also in agreement with this plan. At this time will discharge with return precautions and follow-up recommendations. Verbal discharge instructions given a the bedside and opportunity for questions given. Medication warnings reviewed. Patient is in agreement with this plan and has verbalized understanding of return precautions and the need for primary care follow-up in the next 24-72 hours. - Vital Signs Vital signs: Temp Pulse Resp BP Pulse Ox 97.5 F 72 18 152/93 H 99 07/15/17 22:45 07/15/17 22:45 07/15/17 22:45 07/15/17 22:45 07/15/17 22:45 - Laboratory Result Diagrams: 07/15/17 17:10 07/15/17 17:10 Laboratory results interpreted by me: 07/15/17 07/15/17 07/15/17 17:10 17:10 17:20 RDW 14.6 H Creatinine 0.51 L Total Bilirubin 0.1 L ALT 73 H Total Protein 6.0 L Urine Protein >=500 H Urine Blood LARGE H Ur Leukocyte Esterase LARGE H - Diagnostic Test Radiology reviewed: Reports reviewed Discharge - Discharge Clinical Impression: Postoperative pain, Ureterolithiasis, Flank pain Condition: Good Disposition: HOME, SELF-CARE Additional Instructions: Your x-ray and ultrasound shows that things are going well from your surgery. I spoke with Dr. Dickinson from the urologist group at [facility] and he is in agreement with this assessment. He is asked that you follow-up as scheduled. For your pain: Take ibuprofen 600 mg and acetaminophen 1000 mg every 6 hours together as needed for pain. If this does not control your pain you may take 15 mg of oral morphine every 4 hours as needed. Please be very careful about using the oral morphine and only use this for severe pain. Please return to the emergency room immediately if you have worsening of your pain, persistent vomiting, fever, or any other symptoms that are worrisome to you. Prescriptions: Morphine Sulfate [Morphine Ir 15 mg Tablet] 15 mg PO Q4HP PRN #20 tablet PRN Reason: Referrals: THEO GARAY PA-C [Primary Care Provider] - Follow up as needed
[2017-07-15 18:46] LABS: APPEARANCE,URINE CLOUDY; BILIRUBIN,URINE NEGATIVE (NEGATIVE); COLOR,URINE RED; GLUCOSE, URINE NEGATIVE (NEGATIVE); KETONES,URINE NEGATIVE (NEGATIVE); LEUKOCYTE ESTERASE,URINE LARGE (NEGATIVE); NITRITE,URINE NEGATIVE (NEGATIVE); PROTEIN,URINE >=500 mg/dL (NEGATIVE); URINE SPECIFIC GRAVITY 1.013; UROBILINOGEN,URINE NEGATIVE mg/dL (<2.0)
[2017-07-15] MEDS: FENTANYL CITRATE INJ/PF 100 MCG/2 ML AMPUL IV PRN ×2 (18:48→21:13)
--- NOTE | 2017-07-15 19:39 | RADIOLOGY REPORT (SQ) ---
EXAM DESCRIPTION: KUB/ABDOMEN (SINGLE VIEW) COMPLETED DATE/TIME: 07/15/2017 7:32 pm REASON FOR STUDY: eval stent placement COMPARISON: None. NUMBER OF VIEWS: One view. TECHNIQUE: Supine radiographic image of the abdomen acquired. LIMITATIONS: None. FINDINGS: BOWEL GAS PATTERN: Normal bowel gas pattern. No dilated loops. CALCIFICATIONS: No suspicious calcifications. SOFT TISSUES: No gross mass or suggestion of organomegaly. HARDWARE: Bilateral nephroureteral stents, the proximal left stent is somewhat uncoiled overlying the renal pelvis. BONES: No acute fracture. No worrisome bone lesions. OTHER: No other significant finding. IMPRESSION: Bilateral nephroureteral stents, the proximal left stent is somewhat uncoiled overlying the renal pelvis. TECHNICAL DOCUMENTATION: JOB ID: [id number] [place]-72 2010 [employer]- All Rights Reserved Reading location - IP/workstation name: [email or web address]
--- NOTE | 2017-07-15 21:05 | RADIOLOGY REPORT (SQ) ---
EXAM DESCRIPTION: U/S RETROPERITON LTD COMPLETED DATE/TIME: 07/15/2017 8:54 pm REASON FOR STUDY: eval hydro COMPARISON: CT 07/11/2017 and radiograph 07/15/2017 TECHNIQUE: Dynamic and static grayscale images acquired of the kidneys and bladder and recorded on P ACS. Additional selected color Doppler and spectral images recorded. LIMITATIONS: None. FINDINGS: RIGHT KIDNEY: No hydronephrosis. . LEFT KIDNEY: No hydronephrosis. 5 cm complex cystic -solid mass on the inferior pole of the left ki dney. . BLADDER: Urinary stents coiled in the lumen of the bladder. OTHER FINDINGS: No other significant finding. IMPRESSION: No hydronephrosis. 5 cm complex cystic -solid mass on the inferior pole of the left kidn ey. Urinary stents coiled in the lumen of the bladder. Proximal portions of the stents are not well visualized. TECHNICAL DOCUMENTATION: JOB ID: [id number] [place]-72 2010 [employer]- All Rights Reserved Reading location - IP/workstation name: [email or web address]
[2017-07-15] MEDS ORDERED: MORPHINE SULFATE IR 15 MG TABLET PO ONE (22:19)
[2017-07-15 22:46] VITALS: BP 152/93
== END 2017-07-15 22:46 | disposition home or self-care (01) ==
LOC: ER 15:47
DX: G89.18 Other acute postprocedural pain (principal); R10.9 Unspecified abdominal pain; N20.1 Calculus of ureter; R11.10 Vomiting, unspecified; R00.0 Tachycardia, unspecified; R31.9 Hematuria, unspecified; F17.200 Nicotine dependence, unspecified, uncomplicated; I10 Essential (primary) hypertension; E11.9 Type 2 diabetes mellitus without complications; Z88.5 Allergy status to narcotic agent
CPT/HCPCS: 96376; 99284; 96361; 96374; 96375; 36415; 85025; 80053; 81001; 74018; 76775; J3010; J3490; J1170; J2405; J7030; A9270

== ENCOUNTER 2017-09-28 11:10 | Emergency (ER) | payer MEDICARE, MEDICAID ==
[2017-09-28] MEDS ORDERED: HYDROMORPHONE HCL INJ/PF 2 MG/ML AMPULE IV ONE (11:34)
[2017-09-28] MEDS ORDERED: KETOROLAC TROMETHAMINE INJ/PF 30 MG/1 ML SDV IV ONE (11:34)
--- NOTE | 2017-09-28 11:37 | ER Document Report ---
ED GI/ - General Chief Complaint: Flank Pain Stated Complaint: BACK PAIN Time Seen by Provider: 09/28/17 11:27 Notes: Patient is a 47-year-old female, past medical history kidney stones, kidney cancer, presents with worsening left flank pain over the past few days. Follows with Dr. Borrero and was supposed to have a nephrectomy, but was told it may be too late for nephrectomy due to possible metastases. PE: Uncomfortable, non-tender abdomen I have greeted and performed a rapid initial assessment of this patient. A comprehensive ED assessment and evaluation of the patient, analysis of test results and completion of the medical decision making process will be conducted by additional ED providers. TRAVEL OUTSIDE OF THE [place] IN LAST 30 DAYS: No - Related Data Allergies/Adverse Reactions: hydrocodone Allergy (Verified 07/15/17 15:57) oxycodone HCl [From Percocet] Allergy (Verified 07/15/17 15:57) Past Medical History - Social History Smoking Status: Never Smoker Chew tobacco use (# tins/day): No Frequency of alcohol use: None Drug Abuse: None Family History: Reviewed & Not Pertinent Patient has suicidal ideation: No Patient has homicidal ideation: No - Past Medical History Cardiac Medical History: Reports: Hx Hypertension Neurological Medical History: Reports: Hx Migraine, Hx Seizures - "Anxiety Induced Seizures" Endocrine Medical History: Reports: Hx Diabetes Mellitus Type 2 Renal/ Medical History: Reports: Hx End Stage Renal Disease - kidney cancer, Hx Kidney Stones - had surgery last dec/jan. Denies: Hx Peritoneal Dialysis Musculoskeltal Medical History: Reports Hx Fibromyalgia Psychiatric Medical History: Reports: Hx Anxiety, Hx Depression - anxiety Past Surgical History: Reports: Hx Section - 3, Hx Cholecystectomy, Hx Kidney (Renal Surgery), Hx Orthopedic Surgery - foot surgery - Immunizations Immunizations up to date: Yes Hx Diphtheria, Pertussis, Tetanus Vaccination: Yes Physical Exam - Vital signs Vitals: Temp Pulse Resp BP Pulse Ox 99.0 F 84 18 176/110 H 96 09/28/17 11:19 09/28/17 11:19 09/28/17 11:19 09/28/17 11:19 09/28/17 11:19 Course - Vital Signs Vital signs: Temp Pulse Resp BP Pulse Ox 99.0 F 84 18 176/110 H 96 09/28/17 11:19 09/28/17 11:19 09/28/17 11:19 09/28/17 11:19 09/28/17 11:19
[2017-09-28 12:23] LABS: ABSOLUTE BASOPHILS # (AUTO) 0.1 10^3/uL (0.0-0.2); ABSOLUTE EOSINOPHILS # (AUTO) 0.1 10^3/uL (0.0-0.6); ABSOLUTE LYMPHOCYTES (AUTO) 2.6 10^3/uL (0.5-4.7); ABSOLUTE MONOCYTES (AUTO) 0.5 10^3/uL (0.1-1.4); ABSOLUTE NEUT (AUTO) 4.3 10^3/uL (1.7-8.2); BASOPHILS % (AUTO) 0.8 % (0-2); EOSINOPHILS % (AUTO) 1.8 % (0-6); HEMATOCRIT 40.2 % (36.0-47.0); HEMOGLOBIN 13.3 g/dL (12.0-15.5); LYMPHOCYTES % (AUTO) 33.7 % (13-45); MEAN CORPUSCULAR HEMOGLOBIN 27.8 pg (27.0-33.4); MEAN CORPUSCULAR HGB CONC 33.2 g/dL (32.0-36.0); MEAN CORPUSCULAR VOLUME 84 fl (80-97); MONOCYTES % (AUTO) 6.7 % (3-13); PLATELET COUNT 254 10^3/uL (150-450); RED BLOOD COUNT 4.79 10^6/uL (3.72-5.28); RED CELL DISTRIBUTION WIDTH 14.8 % (11.5-14.0); TOTAL CELLS COUNTED % (AUTO) 100 %; WHITE BLOOD COUNT 7.6 10^3/uL (4.0-10.5)
[2017-09-28 12:35] LABS: APPEARANCE,URINE SLIGHTLY-CLOUDY; BILIRUBIN,URINE NEGATIVE (NEGATIVE); COLOR,URINE YELLOW; GLUCOSE, URINE NEGATIVE (NEGATIVE); KETONES,URINE NEGATIVE (NEGATIVE); LEUKOCYTE ESTERASE,URINE NEGATIVE (NEGATIVE); NITRITE,URINE NEGATIVE (NEGATIVE); PROTEIN,URINE NEGATIVE (NEGATIVE); URINE SPECIFIC GRAVITY 1.014; UROBILINOGEN,URINE NEGATIVE mg/dL (<2.0)
[2017-09-28 12:44] LABS: ALANINE AMINOTRANSFERASE 36 U/L (9-52); ALBUMIN 4.5 g/dL (3.5-5.0); ALKALINE PHOSPHATASE 61 U/L (38-126); ANION GAP 14 (5-19); ASPARTATE AMINO TRANSFERASE 23 U/L (14-36); BILIRUBIN,DIRECT 0.2 mg/dL (0.0-0.4); BILIRUBIN,TOTAL 0.2 mg/dL (0.2-1.3); BLOOD UREA NITROGEN 11 mg/dL (7-20); CALCIUM 10.8 mg/dL (8.4-10.2); CARBON DIOXIDE 28 mmol/L (22-30); CHLORIDE 102 mmol/L (98-107); GLUCOSE 197 mg/dL (75-110); LIPASE 115.8 U/L (23-300); POTASSIUM 4.4 mmol/L (3.6-5.0); SODIUM 143.6 mmol/L (137-145); TOTAL PROTEIN 7.7 g/dL (6.3-8.2)
--- NOTE | 2017-09-28 13:25 | ER Document Report ---
ED General - General Chief Complaint: Flank Pain Stated Complaint: BACK PAIN Time Seen by Provider: 09/28/17 11:27 Mode of Arrival: Ambulatory Information source: Patient Notes: 47-year-old female history of renal cell carcinoma had kidney stones as well who supposed to have a nephrectomy presents with complaints of left flank pain. Patient notes the pain has been ongoing now for weeks, she has been taking [id number] medications notes she has had continued pain and finally came in. She denies any fevers or chills denies any urinary complaints TRAVEL OUTSIDE OF THE [place] IN LAST 30 DAYS: No - HPI Onset: Other Onset/Duration: Persistent Quality of pain: Achy Severity: Moderate Pain Level: 3 Associated symptoms: Body/muscle aches Exacerbated by: Other Relieved by: Denies Similar symptoms previously: Yes Recently seen / treated by doctor: Yes - Sees Dr. lisa at [facility] - Related Data Allergies/Adverse Reactions: hydrocodone Allergy (Verified 07/15/17 15:57) oxycodone HCl [From Percocet] Allergy (Verified 07/15/17 15:57) Past Medical History - Social History Smoking Status: Never Smoker Cigarette use (# per day): No Chew tobacco use (# tins/day): No Smoking Education Provided: No Frequency of alcohol use: None Drug Abuse: None Family History: Reviewed & Not Pertinent Patient has suicidal ideation: No Patient has homicidal ideation: No - Past Medical History Cardiac Medical History: Reports: Hx Hypertension Neurological Medical History: Reports: Hx Migraine, Hx Seizures - "Anxiety Induced Seizures" Endocrine Medical History: Reports: Hx Diabetes Mellitus Type 2 Renal/ Medical History: Reports: Hx End Stage Renal Disease - kidney cancer, Hx Kidney Stones - had surgery last dec/jan. Denies: Hx Peritoneal Dialysis Musculoskeltal Medical History: Reports Hx Fibromyalgia Psychiatric Medical History: Reports: Hx Anxiety, Hx Depression - anxiety Past Surgical History: Reports: Hx Section - 3, Hx Cholecystectomy, Hx Kidney (Renal Surgery), Hx Orthopedic Surgery - foot surgery - Immunizations Immunizations up to date: Yes Hx Diphtheria, Pertussis, Tetanus Vaccination: Yes Review of Systems - Review of Systems Notes: REVIEW OF SYSTEMS: CONSTITUTIONAL : Denies fever, chills, or sweats. Denies recent illness. EENT: Denies eye, ear, throat, or mouth pain or symptoms. Denies nasal or sinus congestion or discharge. Denies throat, tongue, or mouth swelling or difficulty swallowing. CARDIOVASCULAR: Denies chest pain. Denies palpitations or racing or irregular heart beat. Denies ankle edema. RESPIRATORY: Denies cough, cold, or chest congestion. Denies shortness of breath, difficulty breathing, or wheezing. GASTROINTESTINAL: Admits to left flank pain GENITOURINARY: Denies difficulty urinating, painful urination, burning, frequency, blood in urine, or discharge. FEMALE GENITOURINARY: Denies vaginal bleeding, heavy or abnormal periods, irregular periods. Denies vaginal discharge or odor. MUSCULOSKELETAL: Denies back or neck pain or stiffness. Denies joint pain or swelling. SKIN: Denies rash, lesions or sores. HEMATOLOGIC : Denies easy bruising or bleeding. LYMPHATIC: Denies swollen, enlarged glands. NEUROLOGICAL: Denies confusion or altered mental status. Denies passing out or loss of consciousness. Denies dizziness or lightheadedness. Denies headache. Denies weakness or paralysis or loss of use of either side. Denies problems with gait or speech. Denies sensory loss, numbness, or tingling. Denies seizures. PSYCHIATRIC: Denies anxiety or stress. Denies depression, suicidal ideation, or homicidal ideation. ALL OTHER SYSTEMS REVIEWED AND NEGATIVE. PHYSICAL EXAMINATION: GENERAL: Well-appearing, well-nourished and in moderate distress HEAD: Atraumatic, normocephalic. EYES: Pupils equal round and reactive to light, extraocular movements intact, conjunctiva are normal. ENT: Nares patent, oropharynx clear without exudates. Moist mucous membranes. NECK: Normal range of motion, supple without lymphadenopathy LUNGS: Breath sounds clear to auscultation bilaterally and equal. No wheezes rales or rhonchi. HEART: Regular rate and rhythm without murmurs ABDOMEN: Soft, left CVA tenderness Female : deferred Musculoskeletal: Normal range of motion, no pitting or edema. No cyanosis. NEUROLOGICAL: Cranial nerves grossly intact. Normal speech, normal gait. Normal sensory, motor exams PSYCH: Normal mood, normal affect. SKIN: Warm, Dry, normal turgor, no rashes or lesions noted. Dictation was performed using [employer] voice recognition software Physical Exam - Vital signs Vitals: Temp Pulse Resp BP Pulse Ox 99.0 F 84 18 176/110 H 96 09/28/17 11:19 09/28/17 11:19 09/28/17 11:19 09/28/17 11:19 09/28/17 11:19 Course - Re-evaluation Re-evalutation: 09/28/17 13:24 Patient's presentation is concerning for chronic pain which is worsened, she was given pain control feels much better now, CT is pending to rule out any other abnormalities 09/28/17 14:[address] imaging notes no significant changes, the cystic lesion is noted, patient states she will follow-up with her physician regarding surgery for this. She otherwise looks well in no distress at this time we did discuss the use of pain medication she would like to try Tylenol with codeine After performing a Medical Screening Examination, I estimate there is LOW risk for ACUTE APPENDICITIS, BOWEL OBSTRUCTION, ACUTE CHOLECYSTITIS, PERFORATED DIVERTICULITIS, INCARCERATED HERNIA, PANCREATITIS, PELVIC INFLAMMATORY DISEASE, PERFORATED ULCER, ECTOPIC , or TUBO-OVARIAN ABSCESS, thus I consider the discharge disposition reasonable. Also, there is no evidence or peritonitis , sepsis, or toxicity. I have reevaluated this patient multiple times and no significant life threatening changes are noted. The patient and I have discussed the diagnosis and risks, and we agree with discharging home with close follow-up with the understanding that symptoms and presentations can change. We also discussed returning to the Emergency Department immediately if new or worsening symptoms occur. We have discussed the symptoms which are most concerning (e.g., bloody stool, fever, changing or worsening pain, vomiting) that necessitate immediate return. - Vital Signs Vital signs: Temp Pulse Resp BP Pulse Ox 99.0 F 84 18 176/110 H 96 09/28/17 11:19 09/28/17 11:19 09/28/17 11:19 09/28/17 11:19 09/28/17 11:19 - Laboratory Result Diagrams: 09/28/17 11:52 09/28/17 11:52 Laboratory results interpreted by me: 09/28/17 09/28/17 11:52 11:52 RDW 14.8 H Glucose 197 H Calcium 10.8 H - Diagnostic Test Radiology reviewed: Image reviewed - CT abdomen pelvis with IV contrast notes no significant change in the mass of her left lower lobe of the kidney, Reports reviewed Discharge - Discharge Clinical Impression: Renal mass, Flank pain Condition: Stable Disposition: HOME, SELF-CARE Instructions: Abdominal Pain ([facility]) Prescriptions: Acetaminophen with Codeine [Tylenol #3 Tablet] 1 each PO Q4HP PRN #30 tablet PRN Reason: Referrals: THEO GARAY PA-C [Primary Care Provider] - Follow up as needed POINT,HECTOR Luther MD [NO LOCAL MD] - Follow up tomorrow
--- NOTE | 2017-09-28 14:05 | RADIOLOGY REPORT (SQ) ---
EXAM DESCRIPTION: CT ABD/PELVIS WITH IV ONLY COMPLETED DATE/TIME: 09/28/2017 1:44 pm REASON FOR STUDY: left flank pain, Hx renal cancer COMPARISON: 06/15/2017 TECHNIQUE: CT scan of the abdomen and pelvis performed using helical scanning technique with dynamic intravenous contrast injection. No oral contrast. Images reviewed with lung, soft tissue, and bone windows. Reconstructed coronal and sagittal MPR images reviewed. Delayed images for evaluation of the urinary system also acquired. All images stored on PACS. All CT scanners at this facility use dose modulation, iterative reconstruction, and/or weight based d osing when appropriate to reduce radiation dose to as low as reasonably achievable (ALARA). [facility]: Dose Right [facility]: CareDose [facility]: Dose Right [facility]: Teradose 4D [facility]: Rösler miniDaT CONTRAST TYPE AND DOSE: contrast/concentration: Isovue 370.00 mg/ml; Total Contrast Delivered: 81.0 ml; Total Saline Delivered: 68.0 ml RENAL FUNCTION: GFR > 60. RADIATION DOSE: CT Rad equipment meets quality standard of care and radiation dose reduction techniq ues were employed. CTDIvol: 8.4 - 11.8 mGy. DLP: 1167 mGy-cm.. LIMITATIONS: None. FINDINGS: LOWER CHEST: No significant findings. No nodules or infiltrates. LIVER: Normal size. No masses. No dilated ducts. SPLEEN: Normal size. No focal lesions. PANCREAS: No masses. No significant calcifications. No adjacent inflammation or peripancreatic fluid collections. Pancreatic duct not dilated. GALLBLADDER: Surgically absent. ADRENAL GLANDS: No significant masses or asymmetry. RIGHT KIDNEY AND URETER: No solid masses. No significant calcifications. No hydronephrosis or hyd roureter. LEFT KIDNEY AND URETER: Lobulated cystic lesion lower pole is not significantly changed. No stones o r hydronephrosis. No significant calcifications. No hydronephrosis or hydroureter. AORTA AND VESSELS: No aneurysm. No dissection. Renal arteries, SMA, celiac without stenosis. RETROPERITONEUM: No retroperitoneal adenopathy, hemorrhage or masses. BOWEL AND PERITONEAL CAVITY: No masses or inflammatory changes. No free fluid or peritoneal masses. APPENDIX: Normal. PELVIS: 1.8 cm diameter external iliac node on the left not significantly changed. ABDOMINAL WALL: No masses. No hernias. BONES: No acute findings. OTHER: No other significant finding. IMPRESSION: No evidence of urinary tract stones. Small left external iliac node. Unchanged appeara nce of lobulated cystic lesion lower pole left kidney. TECHNICAL DOCUMENTATION: JOB ID: [id number] Quality ID # [id number]: Final reports with documentation of one or more dose reduction techniques (e.g., Au tomated exposure control, adjustment of the mA and/or kV according to patient size, use of iterative reconstruction technique) 2010 [employer]- All Rights Reserved Reading location - IP/workstation name: [id number]
[2017-09-28 14:52] VITALS: BP 169/107
== END 2017-09-28 14:52 | disposition home or self-care (01) ==
LOC: ER 11:10
DX: N28.89 Other specified disorders of kidney and ureter (principal); R10.9 Unspecified abdominal pain; M79.1 Myalgia; I10 Essential (primary) hypertension; E11.9 Type 2 diabetes mellitus without complications; Z88.6 Allergy status to analgesic agent; Z90.49 Acquired absence of other specified parts of digestive tract; Z87.442 Personal history of urinary calculi; Z85.528 Personal history of other malignant neoplasm of kidney
CPT/HCPCS: 99284; 96374; 96375; 36415; 83690; 85025; 80053; 81001; 74177; J1885; J1170

== ENCOUNTER 2017-11-08 16:13 | Emergency (ER) | payer MEDICARE, MEDICAID ==
[2017-11-08] MEDS ORDERED: HYDROMORPHONE HCL INJ/PF 2 MG/ML AMPULE IV ONE (16:37)
--- NOTE | 2017-11-08 16:39 | ER Document Report ---
ED Medical Screen (RME) - General Chief Complaint: Abdominal Pain Stated Complaint: ABDOMINAL PAIN,LOW BACK PAIN Time Seen by Provider: 11/08/17 16:31 Notes: Patient is a 47-year-old female, past medical history renal cell carcinoma on the left (scheduled for nephrectomy by Dr. Borrero in [place] on 11/17), presents with her usual left flank pain. She took Motrin earlier today without much relief of her symptoms. PE: Uncomfortable, left CVA tenderness I have greeted and performed a rapid initial assessment of this patient. A comprehensive ED assessment and evaluation of the patient, analysis of test results and completion of the medical decision making process will be conducted by additional ED providers. TRAVEL OUTSIDE OF THE [place] IN LAST 30 DAYS: No - Related Data Allergies/Adverse Reactions: hydrocodone Allergy (Verified 11/08/17 16:33) oxycodone HCl [From Percocet] Allergy (Verified 11/08/17 16:33) Past Medical History - Social History Chew tobacco use (# tins/day): No Frequency of alcohol use: None Drug Abuse: None - Past Medical History Cardiac Medical History: Reports: Hx Hypertension Neurological Medical History: Reports: Hx Migraine, Hx Seizures - "Anxiety Induced Seizures" Endocrine Medical History: Reports: Hx Diabetes Mellitus Type 2 Renal/ Medical History: Reports: Hx End Stage Renal Disease - kidney cancer, Hx Kidney Stones - had surgery last dec/jan. Denies: Hx Peritoneal Dialysis Musculoskeltal Medical History: Reports Hx Fibromyalgia Psychiatric Medical History: Reports: Hx Anxiety, Hx Depression - anxiety Past Surgical History: Reports: Hx Section - 3, Hx Cholecystectomy, Hx Kidney (Renal Surgery), Hx Orthopedic Surgery - foot surgery - Immunizations Immunizations up to date: Yes Hx Diphtheria, Pertussis, Tetanus Vaccination: Yes Physical Exam - Vital signs Vitals: Temp Pulse Resp BP Pulse Ox 98.2 F 94 18 168/91 H 97 11/08/17 16:18 11/08/17 16:18 11/08/17 16:18 11/08/17 16:18 11/08/17 16:18 Course - Vital Signs Vital signs: Temp Pulse Resp BP Pulse Ox 98.2 F 94 18 168/91 H 97 11/08/17 16:18 11/08/17 16:18 11/08/17 16:18 11/08/17 16:18 11/08/17 16:18 Doctor's Discharge - Discharge Referrals: THEO GARAY PA-C [Primary Care Provider] - Follow up as needed
[2017-11-08 17:04] LABS: ABSOLUTE BASOPHILS # (AUTO) 0.1 10^3/uL (0.0-0.2); ABSOLUTE EOSINOPHILS # (AUTO) 0.1 10^3/uL (0.0-0.6); ABSOLUTE LYMPHOCYTES (AUTO) 2.3 10^3/uL (0.5-4.7); ABSOLUTE MONOCYTES (AUTO) 0.7 10^3/uL (0.1-1.4); ABSOLUTE NEUT (AUTO) 7.6 10^3/uL (1.7-8.2); BASOPHILS % (AUTO) 0.8 % (0-2); EOSINOPHILS % (AUTO) 0.9 % (0-6); HEMATOCRIT 41.1 % (36.0-47.0); HEMOGLOBIN 13.9 g/dL (12.0-15.5); LYMPHOCYTES % (AUTO) 21.5 % (13-45); MEAN CORPUSCULAR HEMOGLOBIN 28.2 pg (27.0-33.4); MEAN CORPUSCULAR HGB CONC 33.8 g/dL (32.0-36.0); MEAN CORPUSCULAR VOLUME 84 fl (80-97); PLATELET COUNT 268 10^3/uL (150-450); RED BLOOD COUNT 4.93 10^6/uL (3.72-5.28); RED CELL DISTRIBUTION WIDTH 14.7 % (11.5-14.0); SEGMENTED NEUTROPHILS % (AUTO) 70.8 % (42-78); TOTAL CELLS COUNTED % (AUTO) 100 %; WHITE BLOOD COUNT 10.8 10^3/uL (4.0-10.5)
[2017-11-08 17:24] LABS: ALANINE AMINOTRANSFERASE 80 U/L (9-52); ALBUMIN 4.7 g/dL (3.5-5.0); ALKALINE PHOSPHATASE 70 U/L (38-126); ANION GAP 11 (5-19); ASPARTATE AMINO TRANSFERASE 38 U/L (14-36); BILIRUBIN,DIRECT 0.3 mg/dL (0.0-0.4); BILIRUBIN,TOTAL 0.4 mg/dL (0.2-1.3); BLOOD UREA NITROGEN 11 mg/dL (7-20); CALCIUM 11.3 mg/dL (8.4-10.2); CARBON DIOXIDE 28 mmol/L (22-30); CHLORIDE 105 mmol/L (98-107); GLUCOSE 130 mg/dL (75-110); POTASSIUM 4.4 mmol/L (3.6-5.0); SODIUM 143.5 mmol/L (137-145); TOTAL PROTEIN 7.9 g/dL (6.3-8.2)
[2017-11-08 17:28] LABS: APPEARANCE,URINE SLIGHTLY-CLOUDY; BILIRUBIN,URINE NEGATIVE (NEGATIVE); COLOR,URINE YELLOW; GLUCOSE, URINE NEGATIVE (NEGATIVE); KETONES,URINE NEGATIVE (NEGATIVE); LEUKOCYTE ESTERASE,URINE NEGATIVE (NEGATIVE); NITRITE,URINE NEGATIVE (NEGATIVE); PROTEIN,URINE NEGATIVE (NEGATIVE); URINE SPECIFIC GRAVITY 1.016; UROBILINOGEN,URINE NEGATIVE mg/dL (<2.0)
[2017-11-08] MEDS ORDERED: KETOROLAC TROMETHAMINE INJ/PF 30 MG/1 ML SDV IV ONE (18:21)
[2017-11-08] MEDS ORDERED: ACETAMINOPHEN WITH CODEINE #3 TABLET PO ONE (18:21)
--- NOTE | 2017-11-08 18:39 | ER Document Report ---
ED GI/ - General Chief Complaint: Abdominal Pain Stated Complaint: ABDOMINAL PAIN,LOW BACK PAIN Time Seen by Provider: 11/08/17 16:31 Mode of Arrival: Ambulatory Information source: Patient Notes: Patient is a 47-year-old female with a history of renal carcinoma the left kidney who presents to the ER today for left flank pain. Patient states that this started at 2 AM last night. She states that she is out of her Tylenol with codeine that she was prescribed last time that helped a lot. She denies any burning with urination, blood in her urine, fever, chills, radiation of the pain anywhere. Patient has a history of kidney stones but states "this does not feel like that at all." She has surgery coming up in November for her renal carcinoma. TRAVEL OUTSIDE OF THE [place] IN LAST 30 DAYS: No - Related Data Allergies/Adverse Reactions: hydrocodone Allergy (Verified 11/08/17 16:33) oxycodone HCl [From Percocet] Allergy (Verified 11/08/17 16:33) Past Medical History - General Information source: Patient - Social History Smoking Status: Current Every Day Smoker Chew tobacco use (# tins/day): No Frequency of alcohol use: None Drug Abuse: None Family History: Reviewed & Not Pertinent Patient has suicidal ideation: No Patient has homicidal ideation: No - Past Medical History Cardiac Medical History: Reports: Hx Hypertension Neurological Medical History: Reports: Hx Migraine, Hx Seizures - "Anxiety Induced Seizures" Endocrine Medical History: Reports: Hx Diabetes Mellitus Type 2 Renal/ Medical History: Reports: Hx End Stage Renal Disease - kidney cancer, Hx Kidney Stones - had surgery last dec/jan. Denies: Hx Peritoneal Dialysis Musculoskeltal Medical History: Reports Hx Fibromyalgia Psychiatric Medical History: Reports: Hx Anxiety, Hx Depression - anxiety Past Surgical History: Reports: Hx Section - 3, Hx Cholecystectomy, Hx Kidney (Renal Surgery), Hx Orthopedic Surgery - foot surgery - Immunizations Immunizations up to date: Yes Hx Diphtheria, Pertussis, Tetanus Vaccination: Yes Review of Systems - Review of Systems Constitutional: No symptoms reported EENT: No symptoms reported Cardiovascular: No symptoms reported Respiratory: No symptoms reported Gastrointestinal: No symptoms reported Genitourinary: See HPI Female Genitourinary: No symptoms reported Musculoskeletal: No symptoms reported Skin: No symptoms reported Hematologic/Lymphatic: No symptoms reported Neurological/Psychological: No symptoms reported Physical Exam - Vital signs Vitals: Temp Pulse Resp BP Pulse Ox 98.2 F 94 18 168/91 H 97 11/08/17 16:18 11/08/17 16:18 11/08/17 16:18 11/08/17 16:18 11/08/17 16:18 - Notes Notes: PHYSICAL EXAMINATION: GENERAL: Uncomfortable appearing, but in no acute distress. HEAD: Atraumatic, normocephalic. EYES: Pupils equal round and reactive to light, extraocular movements intact, sclera anicteric, conjunctiva are normal. NECK: Normal range of motion, supple without lymphadenopathy LUNGS: CTAB and equal. No wheezes rales or rhonchi. HEART: Regular rate and rhythm without murmurs ABDOMEN: Soft, no tenderness. No guarding, no rebound BACK: no vertebral tenderness, normal ROM GI/: Left CVA tenderness EXTREMITIES: Normal range of motion, no pitting edema. No cyanosis. NEUROLOGICAL: Cranial nerves grossly intact. Normal sensory/motor exams. PSYCH: Anxious SKIN: Warm, Dry, normal turgor, no rashes or lesions noted Course - Re-evaluation Re-evalutation: 11/08/17 18:46 Lab work is unremarkable today, urinalysis negative for infection or blood. Ultrasound was ordered of the left kidney, but patient refuses that or any more pain medicine today, stating "I will see my primary care provider in the morning , I am sorry for wasting your time." - Vital Signs Vital signs: Temp Pulse Resp BP Pulse Ox 98.2 F 94 18 168/91 H 97 11/08/17 16:18 11/08/17 16:18 11/08/17 16:18 11/08/17 16:18 11/08/17 16:18 - Laboratory Result Diagrams: 11/08/17 16:54 11/08/17 16:54 Laboratory results interpreted by me: 11/08/17 11/08/17 16:54 16:54 WBC 10.8 H RDW 14.7 H Glucose 130 H Calcium 11.3 H AST 38 H ALT 80 H Discharge - Discharge Clinical Impression: Left flank pain Condition: Stable Disposition: HOME, SELF-CARE Additional Instructions: Return immediately for any new or worsening symptoms. Follow up with primary care provider, call tomorrow to make followup appointment. Prescriptions: Acetaminophen with Codeine [Tylenol #3 Tablet] 1 each PO Q4HP PRN #30 tablet PRN Reason: Referrals: HTEO GARAY PA-C [Primary Care Provider] - Follow up as needed
[2017-11-08 18:54] VITALS: BP 189/102
== END 2017-11-08 18:59 | disposition home or self-care (01) ==
LOC: ER 16:13
DX: R10.9 Unspecified abdominal pain (principal); C64.2 Malignant neoplasm of left kidney, except renal pelvis; I10 Essential (primary) hypertension; E11.9 Type 2 diabetes mellitus without complications; F17.200 Nicotine dependence, unspecified, uncomplicated; Z87.442 Personal history of urinary calculi; Z88.5 Allergy status to narcotic agent; Z90.49 Acquired absence of other specified parts of digestive tract
CPT/HCPCS: 99284; 36415; 85025; 80053; 81001; J1170

== ENCOUNTER 2017-11-25 22:50 | Emergency (ER) | payer MEDICARE, MEDICAID ==
[2017-11-26] MEDS ORDERED: HYDROCODONE/ACETAMINOPHEN 5-325 MG (6 TAB/ER DISP) PO PRN (00:12)
--- NOTE | 2017-11-26 00:14 | ER Document Report ---
ED General - General Chief Complaint: Post Surgical Pain Stated Complaint: POST OP COMPLICATIONS Time Seen by Provider: 11/25/17 23:26 Notes: Patient is a 47-year-old female with a past medical history of a recent left nephrectomy at [facility] who presents with concerns of elevated blood pressure as well as uncontrolled pain. Patient states that her surgery was 6 days ago and that she ran out of pain medications today. She states that since that time her pain had been previously acceptably controlled but is no longer. She describes it as a general abdominal discomfort that is an aching, cramping, constant pain. Movement or touching the area worsens the pain. She states that she contacted the nurse container shop welder and was instructed to come to the emergency department as none of the clinics are open or able to provide her with pain control at this time. She denies that the pain is in any way she performed different the only difference is that she does not have narcotic pain medications to control this pain at this time. She also checked her blood pressure prior to coming to the hospital and noted that it was quite elevated which also concerned her. She does state however that she is no longer concerned about that blood pressure elevation given that her blood pressure has improved since she got here to the emergency department. TRAVEL OUTSIDE OF THE [place] IN LAST 30 DAYS: No - Related Data Allergies/Adverse Reactions: hydrocodone Allergy (Verified 11/08/17 16:33) oxycodone HCl [From Percocet] Allergy (Verified 11/08/17 16:33) Past Medical History - General Information source: Patient - Social History Smoking Status: Current Every Day Smoker Chew tobacco use (# tins/day): No Frequency of alcohol use: None Drug Abuse: None Lives with: Family Family History: Reviewed & Not Pertinent Patient has suicidal ideation: No Patient has homicidal ideation: No - Past Medical History Cardiac Medical History: Reports: Hx Hypertension Neurological Medical History: Reports: Hx Migraine, Hx Seizures - "Anxiety Induced Seizures" Endocrine Medical History: Reports: Hx Diabetes Mellitus Type 2 Renal/ Medical History: Reports: Hx End Stage Renal Disease - kidney cancer, Hx Kidney Stones - had surgery last dec/jan. Denies: Hx Peritoneal Dialysis Musculoskeltal Medical History: Reports Hx Fibromyalgia Psychiatric Medical History: Reports: Hx Anxiety, Hx Depression - anxiety Past Surgical History: Reports: Hx Section - 3, Hx Cholecystectomy, Hx Gynecologic Surgery - DNC x8, Hx Kidney (Renal Surgery), Hx Orthopedic Surgery - foot surgery - Immunizations Immunizations up to date: Yes Hx Diphtheria, Pertussis, Tetanus Vaccination: Yes Review of Systems - Review of Systems Notes: Constitutional: Negative for fever. HENT: Negative for sore throat. Eyes: Negative for visual changes. Cardiovascular: Negative for chest pain. Respiratory: Negative for shortness of breath. Gastrointestinal: Positive for generalized abdominal pain Genitourinary: Negative for dysuria. Musculoskeletal: Negative for back pain. Skin: Negative for rash. Neurological: Negative for headaches, weakness or numbness. 10 point ROS negative except as marked above and in HPI. Physical Exam - Vital signs Vitals: Temp Pulse Resp BP Pulse Ox 97.7 F 75 20 159/88 H 98 11/25/17 22:58 11/25/17 22:58 11/25/17 22:58 11/25/17 22:58 11/25/17 22:58 Interpretation: Hypertensive Notes: PHYSICAL EXAMINATION: GENERAL: Well-appearing, well-nourished and in no acute distress. HEAD: Atraumatic, normocephalic. EYES: Pupils equal round and reactive to light, extraocular movements intact, sclera anicteric, conjunctiva are normal. ENT: nares patent, oropharynx clear without exudates. Moist mucous membranes. NECK: Normal range of motion, supple without lymphadenopathy LUNGS: Breath sounds clear to auscultation bilaterally and equal. No wheezes rales or rhonchi. HEART: Regular rate and rhythm without murmurs ABDOMEN: Soft, mild diffuse tenderness but no localization of the pain, normoactive bowel sounds. No guarding, no rebound. No masses appreciated. EXTREMITIES: Normal range of motion, no pitting or edema. No cyanosis. NEUROLOGICAL: No focal neurological deficits. Moves all extremities spontaneously and on command. PSYCH: Normal mood, normal affect. SKIN: Warm, Dry, normal turgor, laparoscopic incisional wounds are well healing without surrounding erythema or discharge Course - Re-evaluation Re-evalutation: 11/26/17 00:12 Patient presents complaining of worsening of her generalized abdominal pain which has been unchanged postoperatively after a partial left nephrectomy but states that she has run out of pain medication since noon. She notes that since that time her pain has been uncontrolled but notes that it is not different than over the past several days as just she does not have pain medications. And see controlled substance database does verify patient's accurate account of when the pain medications would have ran out which is in the middle of today. Abdominal exam is benign without any areas of rebound, rigidity or guarding. Her vitals show mild hypertension but are otherwise unremarkable. I have agreed to give the patient in Veteran dispense back but have informed her that she will need to follow-up with her surgeon for longer term pain control. I do not suspect an acute intra-abdominal infection, intraperitoneal bleed, and surgical sites themselves are well in appearance without evidence of localized infection. At this time will discharge with return precautions and follow-up recommendations. Verbal discharge instructions given a the bedside and opportunity for questions given. Medication warnings reviewed. Patient is in agreement with this plan and has verbalized understanding of return precautions and the need for primary care follow-up in the next 24-72 hours. - Vital Signs Vital signs: Temp Pulse Resp BP Pulse Ox 97.4 F 64 13 157/93 H 98 11/26/17 00:39 11/26/17 00:39 11/26/17 00:39 11/26/17 00:39 11/26/17 00:39 Discharge - Discharge Clinical Impression: Postoperative pain, Essential hypertension Condition: Good Disposition: HOME, SELF-CARE Additional Instructions: Please follow-up with your general surgeon who performed your surgery regarding your pain control. Return if you develop fever, worsening pain, persistent vomiting, severe headache, or any other symptoms that are worrisome to you. Please also follow-up with your general doctor regarding your high blood pressure. Referrals: THEO GARAY PA-C [Primary Care Provider] - Follow up as needed
[2017-11-26 00:43] VITALS: BP 157/93
== END 2017-11-26 00:43 | disposition home or self-care (01) ==
LOC: ER 22:50
DX: R10.84 Generalized abdominal pain (principal); G89.18 Other acute postprocedural pain; Z90.5 Acquired absence of kidney; I10 Essential (primary) hypertension
CPT/HCPCS: 99283; A9270

== ENCOUNTER 2018-05-03 09:59 | Emergency (ER) | payer MEDICAID, MEDICARE ==
[2018-05-03] MEDS ORDERED: IPRATROPIUM/ALBUTEROL 0.5-2.5 MG/3 ML AMPUL NEB ONE ×2 (10:28→11:13)
[2018-05-03] MEDS ORDERED: METHYLPREDNISOLONE ACETATE INJ 80 MG/1 ML VIAL IM ONE (10:28)
--- NOTE | 2018-05-03 10:31 | ER Document Report ---
ED Respiratory Problem - General Chief Complaint: Shortness Of Breath Stated Complaint: SHORTNESS OF BREATH Time Seen by Provider: 05/03/18 10:27 Mode of Arrival: Ambulatory Information source: Patient Notes: Chief complaint: Shortness of breath History of complain: 47 years old female presents today with nearly 2 weeks if history of cough and wheezing and 2-day history of general body aches and pain feverish. Also having sore throat. Coughing sometimes yellow sputum. Been coughing so much sometimes it hurts in the lower part of the chest. Denies any runny nose. Denies any nausea vomiting or other constitutional symptoms. Last November had a nephrectomy done for renal cell carcinoma. Has a history of type 2 diabetes and hypertension. This morning she took her blood pressure medications as well. Onset: As above Duration: Gradual Severity: Moderate Quality: Not applicable Context: Smoking Exacerbating factor and relieving factors: Coughing REVIEW OF SYSTEMS: CONSTITUTIONAL : Denies fever, chills, or sweats. Denies recent illness. EENT: Denies eye, ear, throat, or mouth pain or symptoms. Denies nasal or sinus congestion or discharge. Denies throat, tongue, or mouth swelling or difficulty swallowing. CARDIOVASCULAR: Denies chest pain. Denies palpitations or racing or irregular heart beat. Denies ankle edema. RESPIRATORY: Denies cough, cold, or chest congestion. Denies shortness of breath, difficulty breathing, or wheezing. GASTROINTESTINAL: Denies abdominal pain or distention. Denies nausea, vomiting , or diarrhea. Denies blood in vomitus, stools, or per rectum. Denies black, tarry stools. Denies constipation. GENITOURINARY: Denies difficulty urinating, painful urination, burning, frequency, blood in urine, or discharge. MUSCULOSKELETAL: Denies back or neck pain or stiffness. Denies joint pain or swelling. SKIN: Denies rash, lesions or sores. HEMATOLOGIC : Denies easy bruising or bleeding. LYMPHATIC: Denies swollen, enlarged glands. NEUROLOGICAL: Denies confusion or altered mental status. Denies passing out or loss of consciousness. Denies dizziness or lightheadedness. Denies headache. Denies weakness or paralysis or loss of use of either side. Denies problems with gait or speech. Denies sensory loss, numbness, or tingling. Denies seizures. PSYCHIATRIC: Denies anxiety or stress. Denies depression, suicidal ideation, or homicidal ideation. ALL OTHER SYSTEMS REVIEWED AND NEGATIVE. Dictation was performed using Super voice recognition software PHYSICAL EXAMINATION: GENERAL: Well-appearing, well-nourished and in no acute distress. HEAD: Atraumatic, normocephalic. EYES: Pupils equal round and reactive to light, extraocular movements intact, sclera anicteric, conjunctiva are normal. ENT: Nares patent, oropharynx clear without exudates. Moist mucous membranes. NECK: Normal range of motion, supple without lymphadenopathy LUNGS: Breath sounds .... No wheezes rales or rhonchi. HEART: Regular rate and rhythm without murmurs ABDOMEN: Soft, nontender, nondistended abdomen. No guarding, no rebound. No masses appreciated. Musculoskeletal: Normal range of motion, no pitting or edema. No cyanosis. NEUROLOGICAL: Cranial nerves grossly intact. Normal speech, normal gait. Normal sensory, motor exams PSYCH: Normal mood, normal affect. SKIN: Warm, Dry, normal turgor, no rashes or lesions noted. TRAVEL OUTSIDE OF THE [place] IN LAST 30 DAYS: No - HPI Notes: Dictated - Related Data Allergies/Adverse Reactions: hydrocodone Allergy (Verified 11/08/17 16:33) oxycodone HCl [From Percocet] Allergy (Verified 11/08/17 16:33) Past Medical History - Social History Smoking Status: Current Every Day Smoker Cigarette use (# per day): No Chew tobacco use (# tins/day): No Smoking Education Provided: No Frequency of alcohol use: Rare Drug Abuse: None Lives with: Family Family History: Reviewed & Not Pertinent - Past Medical History Cardiac Medical History: Reports: Hx Hypertension Neurological Medical History: Reports: Hx Migraine, Hx Seizures - "Anxiety Induced Seizures" Endocrine Medical History: Reports: Hx Diabetes Mellitus Type 2 Renal/ Medical History: Reports: Hx End Stage Renal Disease - kidney cancer, Hx Kidney Stones - had surgery last dec/jan. Denies: Hx Peritoneal Dialysis Musculoskeletal Medical History: Reports Hx Fibromyalgia Psychiatric Medical History: Reports: Hx Anxiety, Hx Depression - anxiety Past Surgical History: Reports: Hx Section - 3, Hx Cholecystectomy, Hx Gynecologic Surgery - DNC x8, Hx Kidney (Renal Surgery), Hx Orthopedic Surgery - foot surgery - Immunizations Immunizations up to date: Yes Hx Diphtheria, Pertussis, Tetanus Vaccination: Yes Review of Systems - Review of Systems Notes: Dictated Physical Exam - Vital signs Vitals: Temp Pulse Resp BP Pulse Ox 97.9 F 87 18 169/99 H 100 05/03/18 10:03 05/03/18 10:03 05/03/18 10:03 05/03/18 10:03 05/03/18 10:03 - Notes Notes: Dictated Course - Re-evaluation Re-evalutation: 05/03/18 10:31 Dictated - Vital Signs Vital signs: Temp Pulse Resp BP Pulse Ox 97.9 F 87 16 169/99 H 100 05/03/18 10:03 05/03/18 10:03 05/03/18 10:21 05/03/18 10:03 05/03/18 10:03 - Laboratory Result Diagrams: 05/03/18 10:50 05/03/18 10:50 Laboratory results interpreted by me: 05/03/18 05/03/18 10:50 10:50 RDW 15.4 H Carbon Dioxide 31 H Glucose 179 H Calcium 11.0 H AST 55 H ALT 90 H Discharge - Discharge Clinical Impression: Pharyngitis Qualifiers: Pharyngitis/tonsillitis etiology: unspecified etiology Qualified Code(s): J02.9 - Acute pharyngitis, unspecified Asthmatic bronchitis Qualifiers: Asthma severity: mild Asthma persistence: intermittent Asthma complication type : with acute exacerbation Qualified Code(s): J45.21 - Mild intermittent asthma with (acute) exacerbation Condition: Fair Disposition: HOME, SELF-CARE Instructions: Sore Throat ([facility]), Asthma ([facility]) Prescriptions: Albuterol Sulfate [Proair Hfa Inhalation Aerosol 8.5 gm Mdi] 1 puff IH Q4 PRN # 1 mdi PRN Reason: Amoxicillin 1 tab PO TID #30 tab Prednisone 5 mg PO ASDIR PRN 6 Days #1 tab.ds.pk PRN Reason: Referrals: THEO GARAY PA-C [Primary Care Provider] - Follow up as needed
[2018-05-03 11:10] LABS: ABSOLUTE BASOPHILS # (AUTO) 0.1 10^3/uL (0.0-0.2); ABSOLUTE EOSINOPHILS # (AUTO) 0.1 10^3/uL (0.0-0.6); ABSOLUTE LYMPHOCYTES (AUTO) 2.3 10^3/uL (0.5-4.7); ABSOLUTE MONOCYTES (AUTO) 0.6 10^3/uL (0.1-1.4); ABSOLUTE NEUT (AUTO) 6.5 10^3/uL (1.7-8.2); BASOPHILS % (AUTO) 0.6 % (0-2); EOSINOPHILS % (AUTO) 1.4 % (0-6); HEMOGLOBIN 14.1 g/dL (12.0-15.5); MEAN CORPUSCULAR HEMOGLOBIN 27.8 pg (27.0-33.4); MEAN CORPUSCULAR HGB CONC 33.6 g/dL (32.0-36.0); MEAN CORPUSCULAR VOLUME 83 fl (80-97); MONOCYTES % (AUTO) 6.1 % (3-13); PLATELET COUNT 245 10^3/uL (150-450); RED BLOOD COUNT 5.08 10^6/uL (3.72-5.28); RED CELL DISTRIBUTION WIDTH 15.4 % (11.5-14.0); SEGMENTED NEUTROPHILS % (AUTO) 67.9 % (42-78); TOTAL CELLS COUNTED % (AUTO) 100 %; WHITE BLOOD COUNT 9.6 10^3/uL (4.0-10.5)
[2018-05-03 11:37] LABS: ALANINE AMINOTRANSFERASE 90 U/L (9-52); ALBUMIN 4.8 g/dL (3.5-5.0); ALKALINE PHOSPHATASE 101 U/L (38-126); ANION GAP 11 (5-19); ASPARTATE AMINO TRANSFERASE 55 U/L (14-36); BILIRUBIN,DIRECT 0.2 mg/dL (0.0-0.4); BILIRUBIN,TOTAL 0.4 mg/dL (0.2-1.3); BLOOD UREA NITROGEN 13 mg/dL (7-20); CARBON DIOXIDE 31 mmol/L (22-30); CHLORIDE 101 mmol/L (98-107); GLUCOSE 179 mg/dL (75-110); POTASSIUM 4.8 mmol/L (3.6-5.0); SODIUM 142.6 mmol/L (137-145)
[2018-05-03 12:33] VITALS: BP 149/97
== END 2018-05-03 12:28 | disposition home or self-care (01) ==
LOC: ER 09:59
DX: J45.21 Mild intermittent asthma with (acute) exacerbation (principal); J02.9 Acute pharyngitis, unspecified; R06.02 Shortness of breath; R05 Cough; R07.9 Chest pain, unspecified; Z85.528 Personal history of other malignant neoplasm of kidney; Z90.5 Acquired absence of kidney; E11.9 Type 2 diabetes mellitus without complications; I10 Essential (primary) hypertension; F17.200 Nicotine dependence, unspecified, uncomplicated; Z88.5 Allergy status to narcotic agent
CPT/HCPCS: 94640 ×2; 99284; 96372; 36415; 87070; 87880; 85025; 87077; 80053; J1040; A9270; J7620

== ENCOUNTER 2018-05-21 09:34 | Emergency (ER) | payer MEDICARE ==
[2018-05-21] MEDS ORDERED: ONDANSETRON HCL INJ/PF 4 MG/2 ML SDV IV ONE (09:49)
[2018-05-21] MEDS ORDERED: NORMAL SALINE 1000 ML 1,000 ML IV ONE (09:50)
--- NOTE | 2018-05-21 09:51 | ER Document Report ---
ED Medical Screen (RME) - General Chief Complaint: Flank Pain Stated Complaint: LEFT FLANK PAIN Time Seen by Provider: 05/21/18 09:45 TRAVEL OUTSIDE OF THE [place] IN LAST 30 DAYS: No - HPI Notes: 05/21/18 09:50 Patient is a 47-year-old female that presents to the emergency department for chief complaint of left flank pain. Patient had partial left nephrectomy for renal cancer in November. She also has a history of ureterolithiasis. Patient started having left flank pain that was dull on 05/10/18, this pain has now increased and is radiating around her left flank. She reports nausea and decreased appetite as well. ROS: GENERAL: Denies fever of chills CV: Denies chest pain PHYSICAL EXAMINATION: GENERAL: Well-appearing, well-nourished and in no acute distress. HEAD: Atraumatic, normocephalic. EYES: Pupils equal round extraocular movements intact, conjunctiva are normal. ENT: Nares patent NECK: Normal range of motion LUNGS: No respiratory distress Musculoskeletal: Normal range of motion NEUROLOGICAL: Normal speech, normal gait. PSYCH: Normal mood, normal affect. MDM: Patient seen and examined for rapid initial assessment. Vital signs reviewed. A comprehensive ED assessment and evaluation of the patient, analysis of test results and completion of the medical decision making process will be conducted by additional ED providers. - Related Data Allergies/Adverse Reactions: hydrocodone Allergy (Verified 05/21/18 09:36) oxycodone HCl [From Percocet] Allergy (Verified 05/21/18 09:36) Past Medical History - Past Medical History Cardiac Medical History: Reports: Hx Hypertension Neurological Medical History: Reports: Hx Migraine, Hx Seizures - "Anxiety Induced Seizures" Endocrine Medical History: Reports: Hx Diabetes Mellitus Type 2 Renal/ Medical History: Reports: Hx End Stage Renal Disease - kidney cancer, Hx Kidney Stones - had surgery last dec/jan. Denies: Hx Peritoneal Dialysis Musculoskeltal Medical History: Reports Hx Fibromyalgia Psychiatric Medical History: Reports: Hx Anxiety, Hx Depression - anxiety Past Surgical History: Reports: Hx Section - 3, Hx Cholecystectomy, Hx Gynecologic Surgery - DNC x8, Hx Kidney (Renal Surgery), Hx Orthopedic Surgery - foot surgery - Immunizations Immunizations up to date: Yes Hx Diphtheria, Pertussis, Tetanus Vaccination: Yes Physical Exam - Vital signs Vitals: Temp Pulse Resp BP Pulse Ox 98.2 F 100 18 153/88 H 98 05/21/18 09:42 05/21/18 09:42 05/21/18 09:42 05/21/18 09:42 05/21/18 09:42 Course - Vital Signs Vital signs: Temp Pulse Resp BP Pulse Ox 98.2 F 100 18 153/88 H 98 05/21/18 09:42 05/21/18 09:42 05/21/18 09:42 05/21/18 09:42 05/21/18 09:42 Doctor's Discharge - Discharge Referrals: THEO GARAY PA-C [Primary Care Provider] - Follow up as needed
[2018-05-21 10:05] LABS: APPEARANCE,URINE SLIGHTLY-CLOUDY; BILIRUBIN,URINE NEGATIVE (NEGATIVE); COLOR,URINE YELLOW; GLUCOSE, URINE >=500 mg/dL (NEGATIVE); KETONES,URINE NEGATIVE (NEGATIVE); LEUKOCYTE ESTERASE,URINE NEGATIVE (NEGATIVE); NITRITE,URINE NEGATIVE (NEGATIVE); PROTEIN,URINE NEGATIVE (NEGATIVE); URINE SPECIFIC GRAVITY 1.031; UROBILINOGEN,URINE NEGATIVE mg/dL (<2.0)
[2018-05-21 10:24] LABS: ABSOLUTE BASOPHILS # (AUTO) 0.1 10^3/uL (0.0-0.2); ABSOLUTE EOSINOPHILS # (AUTO) 0.1 10^3/uL (0.0-0.6); ABSOLUTE LYMPHOCYTES (AUTO) 1.2 10^3/uL (0.5-4.7); ABSOLUTE MONOCYTES (AUTO) 0.8 10^3/uL (0.1-1.4); ABSOLUTE NEUT (AUTO) 6.7 10^3/uL (1.7-8.2); BASOPHILS % (AUTO) 0.6 % (0-2); EOSINOPHILS % (AUTO) 1.6 % (0-6); HEMATOCRIT 41.2 % (36.0-47.0); LYMPHOCYTES % (AUTO) 13.5 % (13-45); MEAN CORPUSCULAR HEMOGLOBIN 28.7 pg (27.0-33.4); MEAN CORPUSCULAR HGB CONC 33.9 g/dL (32.0-36.0); MEAN CORPUSCULAR VOLUME 85 fl (80-97); PLATELET COUNT 236 10^3/uL (150-450); RED BLOOD COUNT 4.86 10^6/uL (3.72-5.28); RED CELL DISTRIBUTION WIDTH 15.5 % (11.5-14.0); SEGMENTED NEUTROPHILS % (AUTO) 75.3 % (42-78); TOTAL CELLS COUNTED % (AUTO) 100 %; WHITE BLOOD COUNT 8.9 10^3/uL (4.0-10.5)
[2018-05-21 10:45] LABS: ANION GAP 9 (5-19); BLOOD UREA NITROGEN 13 mg/dL (7-20); CALCIUM 10.8 mg/dL (8.4-10.2); CARBON DIOXIDE 27 mmol/L (22-30); CHLORIDE 101 mmol/L (98-107); GLUCOSE 369 mg/dL (75-110); POTASSIUM 4.6 mmol/L (3.6-5.0); SODIUM 137.3 mmol/L (137-145)
--- NOTE | 2018-05-21 10:48 | RADIOLOGY REPORT (SQ) ---
EXAM DESCRIPTION: CT ABD/PELVIS NO ORAL OR IV COMPLETED DATE/TIME: 05/21/2018 10:31 am REASON FOR STUDY: left flank pain COMPARISON: 09/28/2017 TECHNIQUE: CT scan of the abdomen and pelvis performed without intravenous or oral contrast. Images reviewed with lung, soft tissue, and bone windows. Reconstructed coronal and sagittal MPR images revi ewed. All images stored on PACS. All CT scanners at this facility use dose modulation, iterative reconstruction, and/or weight based d osing when appropriate to reduce radiation dose to as low as reasonably achievable (ALARA). [facility]: Dose Right [facility]: CareDose [facility]: Dose Right [facility]: Teradose 4D [facility]: [employer] RADIATION DOSE: CT Rad equipment meets quality standard of care and radiation dose reduction techniq ues were employed. CTDIvol: 10.4 mGy. DLP: 603 mGy-cm.mGy. LIMITATIONS: None. FINDINGS: LOWER CHEST: No significant findings. No nodules or infiltrates. NON-CONTRASTED LIVER, SPLEEN, ADRENALS: Hepatic steatosis. PANCREAS: No masses. No peripancreatic inflammatory changes. GALLBLADDER: Surgically absent. RIGHT KIDNEY AND URETER: No suspicious masses. Assessment limited by lack of IV contrast. Tiny nono bstructive calculi of the inferior pole. No hydronephrosis or hydroureter. LEFT KIDNEY AND URETER: There has been interval resection of a previously seen complex cystic lesion of the inferior pole of the left kidney. No significant calcifications. No hydronephrosis or hydr oureter. AORTA AND RETROPERITONEUM: No aneurysm. No retroperitoneal masses or adenopathy. BOWEL AND PERITONEAL CAVITY: No obvious masses or inflammatory changes. No free fluid. APPENDIX: Normal. PELVIS, BLADDER, AND ABDOMINAL WALL:No abnormal masses. No free fluid. Bladder normal. BONES: No significant findings. OTHER: No other significant finding. IMPRESSION: 1. Interval resection of a previously seen complex cystic lesion of the inferior pole o f the left kidney. Evaluation of the left kidney is otherwise limited by lack of IV contrast. 2. Tiny nonobstructive calculi of the inferior pole of the right kidney. No evidence of left-sided urinary tract calculus or hydronephrosis. 3. Hepatic steatosis. COMMENT: Quality ID # [id number]: Final reports with documentation of one or more dose reduction techniques (e.g., Automated exposure control, adjustment of the mA and/or kV according to patient size, use of iterative reconstruction technique) TECHNICAL DOCUMENTATION: JOB ID: [id number] [employer] [facility]- All Rights Reserved Reading location - IP/workstation name: [email or web address]
[2018-05-21] MEDS ORDERED: LIDOCAINE 5% (700 MG) TRANSDERMAL ADH..PATCH TP ONE (11:54)
--- NOTE | 2018-05-21 12:00 | ER Document Report ---
ED General - General Chief Complaint: Flank Pain Stated Complaint: LEFT FLANK PAIN Time Seen by Provider: 05/21/18 09:45 TRAVEL OUTSIDE OF THE [place]. IN LAST 30 DAYS: No - HPI Patient complains to provider of: Left flank pain Notes: Patient coming in for evaluation of left flank pain. Patient was evaluated by the doctor in our triage area whose note is provided below Patient is a 47-year-old female that presents to the emergency department for chief complaint of left flank pain. Patient had partial left nephrectomy for renal cancer in November. She also has a history of ureterolithiasis. Patient started having left flank pain that was dull on 05/10/18, this pain has now i ncreased and is radiating around her left flank. She reports nausea and decreased appetite as well. Upon my evaluation patient sitting up resting very comfortably. Patient is receiving IV fluids. Patient denies any fevers chills nausea vomiting diarrhea - Related Data Allergies/Adverse Reactions: hydrocodone Allergy (Verified 05/21/18 09:36) oxycodone HCl [From Percocet] Allergy (Verified 05/21/18 09:36) Past Medical History - Social History Smoking Status: Current Every Day Smoker Family History: Reviewed & Not Pertinent Patient has suicidal ideation: No Patient has homicidal ideation: No - Past Medical History Cardiac Medical History: Reports: Hx Hypertension Neurological Medical History: Reports: Hx Migraine, Hx Seizures - "Anxiety Induced Seizures" Endocrine Medical History: Reports: Hx Diabetes Mellitus Type 2 Renal/ Medical History: Reports: Hx End Stage Renal Disease - kidney cancer, Hx Kidney Stones - had surgery last dec/jan. Denies: Hx Peritoneal Dialysis Musculoskeletal Medical History: Reports Hx Fibromyalgia Psychiatric Medical History: Reports: Hx Anxiety, Hx Depression - anxiety Past Surgical History: Reports: Hx Section - 3, Hx Cholecystectomy, Hx Gynecologic Surgery - DNC x8, Hx Kidney (Renal Surgery), Hx Orthopedic Surgery - foot surgery - Immunizations Immunizations up to date: Yes Hx Diphtheria, Pertussis, Tetanus Vaccination: Yes Review of Systems - Review of Systems Constitutional: No symptoms reported EENT: No symptoms reported Cardiovascular: No symptoms reported Respiratory: No symptoms reported Gastrointestinal: No symptoms reported Genitourinary: Flank pain Female Genitourinary: No symptoms reported Musculoskeletal: No symptoms reported Skin: No symptoms reported Hematologic/Lymphatic: No symptoms reported Neurological/Psychological: No symptoms reported -: Yes All other systems reviewed and negative Physical Exam - Vital signs Vitals: Temp Pulse Resp BP Pulse Ox 98.2 F 100 18 153/88 H 98 05/21/18 09:42 05/21/18 09:42 05/21/18 09:42 05/21/18 09:42 05/21/18 09:42 Interpretation: Normal - General General appearance: Appears well, Alert - HEENT Head: Normocephalic, Atraumatic Eyes: Normal Pupils: PERRL - Respiratory Respiratory status: No respiratory distress Chest status: Nontender Breath sounds: Normal Chest palpation: Normal - Cardiovascular Rhythm: Regular Heart sounds: Normal auscultation Murmur: No - Abdominal Inspection: Normal Distension: No distension Bowel sounds: Normal Tenderness: Nontender Organomegaly: No organomegaly - Back Back: Normal, Nontender - Extremities General upper extremity: Normal inspection, Nontender, Normal color, Normal ROM, Normal temperature General lower extremity: Normal inspection, Nontender, Normal color, Normal ROM, Normal temperature, Normal weight bearing. No: Kenneth's sign - Neurological Neuro grossly intact: Yes Cognition: Normal Orientation: AAOx4 Arnulfo Coma Scale Eye Opening: Spontaneous Brewster Coma Scale Verbal: Oriented Arnulfo Coma Scale Motor: Obeys Commands Arnulfo Coma Scale Total: 15 Speech: Normal Motor strength normal: LUE, RUE, LLE, RLE Sensory: Normal - Psychological Associated symptoms: Normal affect, Normal mood - Skin Skin Temperature: Warm Skin Moisture: Dry Skin Color: Normal Course - Re-evaluation Re-evalutation: 05/21/18 16:03 Laboratory studies show hyperglycemia no signs of DKA or HHS. Patient otherwise tolerating p.o. Patient is concerned stating that her PCP recent left the area patient requesting a prescription for more diabetic testing strips this was supplied to the patient. Otherwise patient's laboratory studies CAT scan does not show any critical pathology. Patient was to be safe to be discharged home 05/21/18 16:04 The patient presents with abdominal pain without signs of peritonitis or other life-threatening or serious etiology. The patient appears stable for discharge and has been instructed to return immediately if the symptoms worsen in any way, or in 8-12hr if not improved for re-evaluation. The patient has been instructed to return if the symptoms worsen or change in any way. - Vital Signs Vital signs: Temp Pulse Resp BP Pulse Ox 98.6 F 88 18 148/86 H 98 05/21/18 12:05 05/21/18 12:05 05/21/18 12:05 05/21/18 12:05 05/21/18 12:05 - Laboratory Result Diagrams: 05/21/18 10:07 05/21/18 10:07 Laboratory results interpreted by me: 05/21/18 05/21/18 05/21/18 09:40 10:07 10:07 RDW 15.5 H Creatinine 0.45 L Glucose 369 H Calcium 10.8 H Urine Glucose (UA) >=500 H Discharge - Discharge Clinical Impression: Left flank pain, Hyperglycemia Condition: Good Disposition: HOME, SELF-CARE Instructions: Family Physicians / Practices, Flank Pain ([facility]), Hyperglycemia ([facility]) Additional Instructions: Your evaluation today is consistent with a muscle skeletal etiology of your left flank pain. Your laboratory studies show no signs of infection or urinary tract infection your CAT scan is not showing signs of kidney stones. Your labs do show elevation of your blood glucose greater than 350 however no complications because of this I would highly recommend following up with a primary care physician for further evaluation of your blood sugars. I recommend taking Zofran for nausea control Tylenol Motrin for pain control you may ask your pharmacist about [id number] lidocaine patches also help out with your pain. Prescriptions: Blood Sugar Diagnostic [Accu-Chek Guide Test Strip] 1 each MC BID #60 strip Ondansetron [Zofran Odt 4 mg Tablet] 1 - 2 tab PO Q4H PRN #15 tab.rapdis PRN Reason: For Nausea/Vomiting Referrals: THEO GARAY PA-C [NO LOCAL MD] - Follow up as needed
[2018-05-21 12:06] VITALS: BP 148/86
== END 2018-05-21 12:06 | disposition home or self-care (01) ==
LOC: ER 09:34
DX: R10.9 Unspecified abdominal pain (principal); E11.65 Type 2 diabetes mellitus with hyperglycemia; R63.0 Anorexia; I10 Essential (primary) hypertension; Z90.5 Acquired absence of kidney; Z85.528 Personal history of other malignant neoplasm of kidney; Z88.5 Allergy status to narcotic agent
CPT/HCPCS: 99284; 96361; 96374; 36415; 85025; 80048; 81001; 74176; J2405; J7030

== ENCOUNTER 2018-07-13 08:03 | Emergency (ER) | payer MEDICARE ==
[2018-07-13] MEDS ORDERED: CYCLOBENZAPRINE HCL 10 MG TABLET PO ONE (09:01)
--- NOTE | 2018-07-13 09:07 | ER Document Report ---
HPI - HPI Time Seen by Provider: 07/13/18 08:22 Pain Level: 3 Context: Patient is a 47-year-old female who presents to the emergency department with a chief complaint of right neck pain. She states that she was sitting on the toilet yesterday and was on her phone and turn her head to the right and felt a sharp pain to her right neck. She took some ibuprofen last night for the pain, but woke up still in pain this morning. She has history of the same episode 3 years ago and was given cyclobenzaprine and her symptoms got better. Past medical history includes fibromyalgia and cancer. She states she is very physically active always keeps moving. - CONSTITUTIONAL Constitutional: DENIES: Fever, Chills - EENT EENT: DENIES: Sore Throat, Ear Pain, Eye problems - NEURO Neurology: DENIES: Headache, Weakness, Vision blurred, Dizzinesss / Vertigo - CARDIOVASCULAR Cardiovascular: DENIES: Chest pain - RESPIRATORY Respiratory: DENIES: Trouble Breathing, Coughing - GASTROINTESTINAL Gastrointestinal: DENIES: Abdominal Pain, Black / Bloody Stools - URINARY Urinary: DENIES: Dysuria, Urgency, Frequency - REPRODUCTIVE Reproductive: DENIES: : - MUSCULOSKELETAL Musculoskeletal: DENIES: Extremity pain Past Medical History - Social History Smoking Status: Unknown if Ever Smoked Family History: Reviewed & Not Pertinent Patient has suicidal ideation: No Patient has homicidal ideation: No - Past Medical History Cardiac Medical History: Reports: Hx Hypertension Neurological Medical History: Reports: Hx Migraine, Hx Seizures - "Anxiety Induced Seizures" Endocrine Medical History: Reports: Hx Diabetes Mellitus Type 2 Renal/ Medical History: Reports: Hx End Stage Renal Disease - kidney cancer, Hx Kidney Stones - had surgery last dec/jan. Denies: Hx Peritoneal Dialysis Musculoskeletal Medical History: Reports Hx Fibromyalgia Psychiatric Medical History: Reports: Hx Anxiety, Hx Depression - anxiety Past Surgical History: Reports: Hx Section - 3, Hx Cholecystectomy, Hx Gynecologic Surgery - DNC x8, Hx Kidney (Renal Surgery), Hx Orthopedic Surgery - foot surgery - Immunizations Immunizations up to date: Yes Hx Diphtheria, Pertussis, Tetanus Vaccination: Yes Vertical Provider Document - CONSTITUTIONAL Exam Limitations: No Limitations - INFECTION CONTROL TRAVEL OUTSIDE OF THE [place] IN LAST 30 DAYS: No - HEENT HEENT: Atraumatic, Normocephalic - NECK Neck: Normal Inspection, Other - Tenderness to right side of neck and right shoulder - RESPIRATORY Respiratory: Breath Sounds Normal, No Respiratory Distress - CARDIOVASCULAR Cardiovascular: Regular Rate Pulses: Normal: Radial - MUSCULOSKELETAL/EXTREMETIES Musculoskeletal/Extremeties: FROM - NEURO Level of Consciousness: Awake, Alert, Appropriate Motor/Sensory: No Motor Deficit, No Sensory Deficit - DERM Integumentary: Warm, Dry Course - Re-evaluation Re-evalutation: 07/13/18 09:07 Patient's symptoms are most consistent with muscle tension. She will be given a dose of cyclobenzaprine and a prescription for cyclobenzaprine. I do not suspect any skeletal or life-threatening etiology at this time as the patient does not have any numbness, tingling, or weakness. Verbal discharge instructions were given to the patient. They verbalized understanding. They are stable for discharge. - Vital Signs Vital signs: Temp Pulse Resp BP Pulse Ox 99.2 F 81 18 175/83 H 97 07/13/18 08:09 07/13/18 08:09 07/13/18 08:09 07/13/18 08:09 07/13/18 08:09 Discharge - Discharge Clinical Impression: Neck pain on right side Condition: Stable Disposition: HOME, SELF-CARE Additional Instructions: You were seen today in the emergency department for right neck pain. You have been given Flexeril, medication to help with your tense muscle in your neck and shoulder. Please continue to take ibuprofen to help with the anti-inflammatory effects. If you have worsening symptoms, or your pain does not get better, please return to the emergency department. Prescriptions: Cyclobenzaprine HCl [Flexeril 10 mg Tablet] 10 mg PO TIDP PRN #15 tab PRN Reason: Referrals: JANICE BEAL MD [Primary Care Provider] - Follow up as needed
[2018-07-13 09:49] VITALS: BP 171/102
== END 2018-07-13 09:49 | disposition home or self-care (01) ==
LOC: ER 08:03
DX: M54.2 Cervicalgia (principal); E11.22 Type 2 diabetes mellitus with diabetic chronic kidney disease; I12.0 Hypertensive chronic kidney disease with stage 5 chronic kidney disease or end stage renal disease; N18.6 End stage renal disease; Z90.49 Acquired absence of other specified parts of digestive tract
CPT/HCPCS: 99283; A9270

== ENCOUNTER 2018-08-06 12:48 | Emergency (ER) | payer MEDICARE, MEDICAID ==
--- NOTE | 2018-08-06 14:28 | ER Document Report ---
ED Medical Screen (RME) - General Chief Complaint: Back Pain Stated Complaint: LOWER BACK PAIN Time Seen by Provider: 08/06/18 14:06 Primary Care Provider: JANICE BEAL MD [Primary Care Provider] - Follow up as needed Mode of Arrival: Ambulatory Information source: Patient Notes: 47-year-old female presents to ED for complaint of bilateral back pain from just above her bra line down to her buttocks. She states that it radiates down her left leg. She states she had renal cancer last year and she had 8% of her left kidney removed due to the cancer. She states she has had a mammogram from her primary care doctor for the pain in her breast. She states she saw her doctor recently and cannot see her again until the and the pain is getting progres sively worse. She states she goes to Dr. Pisano oncologist. I consulted Dr. Triana the provider covering me as I am a nurse practitioner and she stated that this patient would need blood work and CAT scan of abdomen pelvis. Due to her recent cancer history she will need blood work and a CAT scan of the abdomen pelvis for this pain. I have greeted and performed a rapid initial assessment of this patient. A comprehensive ED assessment and evaluation of the patient, analysis of test results and completion of medical decision making process will be conducted by an additional ED providers. TRAVEL OUTSIDE OF THE [place] IN LAST 30 DAYS: No - Related Data Allergies/Adverse Reactions: hydrocodone Allergy (Verified 08/06/18 12:49) oxycodone HCl [From Percocet] Allergy (Verified 08/06/18 12:49) Past Medical History - Past Medical History Cardiac Medical History: Reports: Hx Hypertension Neurological Medical History: Reports: Hx Migraine, Hx Seizures - "Anxiety Induced Seizures" Endocrine Medical History: Reports: Hx Diabetes Mellitus Type 2 Renal/ Medical History: Reports: Hx End Stage Renal Disease - kidney cancer, Hx Kidney Stones - had surgery last dec/jan. Denies: Hx Peritoneal Dialysis Musculoskeltal Medical History: Reports Hx Fibromyalgia Psychiatric Medical History: Reports: Hx Anxiety, Hx Depression - anxiety Past Surgical History: Reports: Hx Section - 3, Hx Cholecystectomy, Hx Gynecologic Surgery - DNC x8, Hx Kidney (Renal Surgery), Hx Orthopedic Surgery - foot surgery - Immunizations Immunizations up to date: Yes Hx Diphtheria, Pertussis, Tetanus Vaccination: Yes Physical Exam - Vital signs Vitals: Temp Pulse Resp BP Pulse Ox 97.7 F 80 17 174/91 H 99 08/06/18 12:54 08/06/18 12:54 08/06/18 12:54 08/06/18 12:54 08/06/18 12:54 Course - Vital Signs Vital signs: Temp Pulse Resp BP Pulse Ox 97.7 F 80 17 174/91 H 99 08/06/18 12:54 08/06/18 12:54 08/06/18 12:54 08/06/18 12:54 08/06/18 12:54 Doctor's Discharge - Discharge Referrals: JANICE BEAL MD [Primary Care Provider] - Follow up as needed
[2018-08-06 15:10] LABS: ABSOLUTE BASOPHILS # (AUTO) 0.1 10^3/uL (0.0-0.2); ABSOLUTE EOSINOPHILS # (AUTO) 0.1 10^3/uL (0.0-0.6); ABSOLUTE MONOCYTES (AUTO) 0.7 10^3/uL (0.1-1.4); ABSOLUTE NEUT (AUTO) 7.9 10^3/uL (1.7-8.2); BASOPHILS % (AUTO) 0.7 % (0-2); EOSINOPHILS % (AUTO) 1.1 % (0-6); HEMATOCRIT 41.5 % (36.0-47.0); HEMOGLOBIN 14.1 g/dL (12.0-15.5); LYMPHOCYTES % (AUTO) 18.7 % (13-45); MEAN CORPUSCULAR HEMOGLOBIN 28.8 pg (27.0-33.4); MEAN CORPUSCULAR HGB CONC 33.9 g/dL (32.0-36.0); MEAN CORPUSCULAR VOLUME 85 fl (80-97); MONOCYTES % (AUTO) 6.2 % (3-13); PLATELET COUNT 249 10^3/uL (150-450); RED BLOOD COUNT 4.89 10^6/uL (3.72-5.28); RED CELL DISTRIBUTION WIDTH 14.4 % (11.5-14.0); SEGMENTED NEUTROPHILS % (AUTO) 73.3 % (42-78); TOTAL CELLS COUNTED % (AUTO) 100 %; WHITE BLOOD COUNT 10.7 10^3/uL (4.0-10.5)
[2018-08-06 15:37] LABS: ALANINE AMINOTRANSFERASE 43 U/L (9-52); ALBUMIN 4.6 g/dL (3.5-5.0); ALKALINE PHOSPHATASE 86 U/L (38-126); ANION GAP 9 (5-19); ASPARTATE AMINO TRANSFERASE 29 U/L (14-36); BILIRUBIN,DIRECT 0.2 mg/dL (0.0-0.4); BILIRUBIN,TOTAL 0.3 mg/dL (0.2-1.3); BLOOD UREA NITROGEN 13 mg/dL (7-20); CALCIUM 11.1 mg/dL (8.4-10.2); CARBON DIOXIDE 27 mmol/L (22-30); CHLORIDE 105 mmol/L (98-107); GLUCOSE 129 mg/dL (75-110); POTASSIUM 4.5 mmol/L (3.6-5.0); TOTAL PROTEIN 7.8 g/dL (6.3-8.2)
[2018-08-06 16:03] LABS: APPEARANCE,URINE SLIGHTLY-CLOUDY; BILIRUBIN,URINE NEGATIVE (NEGATIVE); CALCIUM OXALATE CRYSTALS,URINE FEW /HPF; COLOR,URINE YELLOW; GLUCOSE, URINE NEGATIVE (NEGATIVE); KETONES,URINE NEGATIVE (NEGATIVE); LEUKOCYTE ESTERASE,URINE NEGATIVE (NEGATIVE); NITRITE,URINE NEGATIVE (NEGATIVE); PROTEIN,URINE NEGATIVE (NEGATIVE); URINE SPECIFIC GRAVITY 1.023; UROBILINOGEN,URINE NEGATIVE mg/dL (<2.0)
--- NOTE | 2018-08-06 16:40 | RADIOLOGY REPORT (SQ) ---
EXAM DESCRIPTION: CT ABD/PELVIS WITH IV ONLY COMPLETED DATE/TIME: 08/06/2018 4:25 pm REASON FOR STUDY: bilateral flank and low back pain recent renal siri COMPARISON: 05/21/2018 and 09/28/2017 TECHNIQUE: CT scan of the abdomen and pelvis performed using helical scanning technique with dynamic intravenous contrast injection. No oral contrast. Images reviewed with lung, soft tissue, and bone windows. Reconstructed coronal and sagittal MPR images reviewed. Delayed images for evaluation of the urinary system also acquired. All images stored on PACS. All CT scanners at this facility use dose modulation, iterative reconstruction, and/or weight based d osing when appropriate to reduce radiation dose to as low as reasonably achievable (ALARA). [facility]: Dose Right [facility]: CareDose [facility]: Dose Right [facility]: Teradose 4D [facility]: [employer] CONTRAST TYPE AND DOSE: contrast/concentration: Isovue 300.00 mg/ml; Total Contrast Delivered: 99.0 ml; Total Saline Delivered: 72.0 ml 99 mL Isovue 300- low osmolar. RENAL FUNCTION: GFR > 60. RADIATION DOSE: CT Rad equipment meets quality standard of care and radiation dose reduction techniq ues were employed. CTDIvol: 8.7 - 12.2 mGy. DLP: 1136 mGy-cm.. LIMITATIONS: None. FINDINGS: LOWER CHEST: The lung bases are clear. There is a 2.2 cm masslike density in the left velia ast that was not present on prior examinations. LIVER: Normal size. No masses. No dilated ducts. SPLEEN: Normal size. No focal lesions. PANCREAS: No masses. No significant calcifications. No adjacent inflammation or peripancreatic fluid collections. Pancreatic duct not dilated. GALLBLADDER: Surgically absent. ADRENAL GLANDS: Stable 1.1 cm mass in the lateral limb of the left adrenal gland. The right adrenal gland is normal. RIGHT KIDNEY AND URETER: No solid masses. No significant calcifications. No hydronephrosis or hyd roureter. Stable small hypoenhancing lesion in the lower pole. LEFT KIDNEY AND URETER: No solid masses. No significant calcifications. No hydronephrosis or hydr oureter. Postsurgical changes at the inferior pole. Stable small hypoenhancing mass in the upper po le. AORTA AND VESSELS: No aneurysm. No dissection. Renal arteries, SMA, celiac without stenosis. RETROPERITONEUM: No retroperitoneal adenopathy, hemorrhage or masses. BOWEL AND PERITONEAL CAVITY: No masses or inflammatory changes. No free fluid or peritoneal masses. APPENDIX: Normal. PELVIS: No mass. No free fluid. Normal bladder. ABDOMINAL WALL: There is a fat containing umbilical hernia present. BONES: No significant or acute findings. OTHER: No other significant finding. IMPRESSION: 1. No evidence of an acute intra-abdominal process 2. 2.2 cm masslike density in the left breast that was not present on prior examinations. Recommend correlation with physical exam and mammography. 3. Chronic changes as above. TECHNICAL DOCUMENTATION: JOB ID: [id number] Quality ID # [id number]: Final reports with documentation of one or more dose reduction techniques (e.g., Au tomated exposure control, adjustment of the mA and/or kV according to patient size, use of iterative reconstruction technique) 2010 [employer]- All Rights Reserved Reading location - IP/workstation name: [email or web address]
[2018-08-06] MEDS ORDERED: MORPHINE SULFATE 10 MG/ML INJ IV ONE (16:49)
--- NOTE | 2018-08-06 18:36 | ER Document Report ---
HPI - HPI Time Seen by Provider: 08/06/18 14:06 Pain Level: 5 Notes: Patient is a 47-year-old female who presents to the emergency department with complaints of thoracic back pain that radiates down to her buttocks. She states this has been going on for several weeks. She reports renal cancer last year. Patient reports the pain feels like a constant aching pain. She states that she has Dilaudid at home but that she can take for the pain however she does not lik e to take this because it is too strong. Patient reports she has a follow-up appointment with her just had a mammogram done for pain in her left breast. She denies any nausea, vomiting, diarrhea or weight loss. - CONSTITUTIONAL Constitutional: DENIES: Fever, Chills - EENT EENT: DENIES: Sore Throat - NEURO Neurology: DENIES: Headache - CARDIOVASCULAR Cardiovascular: DENIES: Chest pain - GASTROINTESTINAL Gastrointestinal: DENIES: Abdominal Pain - URINARY Urinary: DENIES: Dysuria - REPRODUCTIVE Reproductive: DENIES: : - DERM Skin Color: Normal Past Medical History - General Information source: Patient - Social History Smoking Status: Never Smoker Frequency of alcohol use: None Drug Abuse: None Family History: Reviewed & Not Pertinent Patient has suicidal ideation: No Patient has homicidal ideation: No - Past Medical History Cardiac Medical History: Reports: Hx Hypertension Neurological Medical History: Reports: Hx Migraine, Hx Seizures - "Anxiety Induced Seizures" Endocrine Medical History: Reports: Hx Diabetes Mellitus Type 2 Renal/ Medical History: Reports: Hx End Stage Renal Disease - kidney cancer, Hx Kidney Stones - had surgery last dec/jan. Denies: Hx Peritoneal Dialysis Musculoskeletal Medical History: Reports Hx Fibromyalgia Psychiatric Medical History: Reports: Hx Anxiety, Hx Depression - anxiety Past Surgical History: Reports: Hx Section - 3, Hx Cholecystectomy, Hx Gynecologic Surgery - DNC x8, Hx Kidney (Renal Surgery), Hx Orthopedic Surgery - foot surgery - Immunizations Immunizations up to date: Yes Hx Diphtheria, Pertussis, Tetanus Vaccination: Yes Vertical Provider Document - CONSTITUTIONAL Notes: PHYSICAL EXAMINATION: GENERAL: Well-appearing, well-nourished and in no acute distress. HEAD: Atraumatic, normocephalic. EYES: Pupils equal round and reactive to light, extraocular movements intact, conjunctiva are normal. ENT: Nares patent, oropharynx clear without exudates. Moist mucous membranes. NECK: Normal range of motion, supple without lymphadenopathy LUNGS: Breath sounds clear to auscultation bilaterally and equal. No wheezes rales or rhonchi. HEART: Regular rate and rhythm without murmurs ABDOMEN: Soft, nontender, nondistended abdomen. No guarding, no rebound. No masses appreciated. Female : deferred Musculoskeletal: Normal range of motion, no pitting or edema. No cyanosis. NEUROLOGICAL: Cranial nerves grossly intact. Normal speech, normal gait. Normal sensory, motor exams PSYCH: Normal mood, normal affect. SKIN: Warm, Dry, normal turgor, no rashes or lesions noted. - INFECTION CONTROL TRAVEL OUTSIDE OF THE [place] IN LAST 30 DAYS: No Course - Re-evaluation Re-evalutation: CBC, CMP and urinalysis are unremarkable. A CT scan of the abdomen and pelvis was performed with IV contrast. The CT scan shows a 2.2 cm mass in the left breast that was not present on the most previous CT scan done in April/2018. This was all discussed with the patient who verbalizes that the understanding for need for follow-up. A copy of the CT report was given to her. I also prescribed her a short course of hydrocodone to help with her pain. - Vital Signs Vital signs: Temp Pulse Resp BP Pulse Ox 97.7 F 80 17 174/91 H 99 08/06/18 12:54 08/06/18 12:54 08/06/18 12:54 08/06/18 12:54 08/06/18 12:54 - Laboratory Result Diagrams: 08/06/18 14:55 08/06/18 14:55 Laboratory results interpreted by me: 08/06/18 08/06/18 14:55 14:55 WBC 10.7 H RDW 14.4 H Glucose 129 H Calcium 11.1 H Discharge - Discharge Clinical Impression: Whole body pain, Breast mass Condition: Stable Disposition: HOME, SELF-CARE Additional Instructions: Your lab workup today was normal. There is a new mass found on your left breast. I have given you a copy of your lab results as well as your CT results please make sure you take them to your primary care provider on 08/17/18 when you have your follow-up appointment. Use the hydrocodone as needed for severe pain only. You may take 1/2-1 tablet every 4 hours. Prescriptions: Hydrocodone Bit/Acetaminophen [Hydrocodon-Acetaminophen 5-325] 1 each PO Q4H #20 tablet Referrals: JANICE BEAL MD [Primary Care Provider] - Follow up as needed
[2018-08-06 19:19] VITALS: BP 150/80
== END 2018-08-06 19:00 | disposition home or self-care (01) ==
LOC: ER 12:48
DX: N63.20 Unspecified lump in the left breast, unspecified quadrant (principal); M79.10 Myalgia, unspecified site; M54.6 Pain in thoracic spine; N64.4 Mastodynia; Z79.899 Other long term (current) drug therapy; I10 Essential (primary) hypertension; E11.9 Type 2 diabetes mellitus without complications
CPT/HCPCS: 99284; 96374; 36415; 85025; 80053; 81001; 74177; J2270

== ENCOUNTER 2018-12-12 14:17 | Emergency (ER) | payer MEDICARE, MEDICAID ==
--- NOTE | 2018-12-12 15:29 | RADIOLOGY REPORT (SQ) ---
EXAM DESCRIPTION: HIP LEFT AP/LATERAL COMPLETED DATE/TIME: 12/12/2018 3:17 pm REASON FOR STUDY: left hip pain s/p fall COMPARISON: None. NUMBER OF VIEWS: Two views. TECHNIQUE: AP pelvis and additional frog-leg view of the left hip. LIMITATIONS: None. FINDINGS: MINERALIZATION: Normal. LEFT HIP: No fracture or dislocation. No worrisome bone lesions. RIGHT HIP: No fracture or dislocation. No worrisome bone lesions. PUBIS AND ISCHIUM: No fracture. PELVIS: No fracture. SACRUM: No fracture or dislocation. No worrisome bone lesions. LOWER LUMBAR SPINE: No fracture or dislocation. No worrisome bone lesions. No significant disc disea se. SOFT TISSUES: No findings. OTHER: No other significant finding. IMPRESSION: NEGATIVE STUDY OF THE LEFT HIP AND PELVIS. NO RADIOGRAPHIC EVIDENCE OF ACUTE INJURY. TECHNICAL DOCUMENTATION: JOB ID: [id number] [employer]- All Rights Reserved Reading location - IP/workstation name: [email or web address]
[2018-12-12] MEDS ORDERED: DIPHENHYDRAMINE HCL 50 MG CAPSULE PO ONE (15:39)
--- NOTE | 2018-12-12 16:44 | ER Document Report ---
HPI - HPI Time Seen by Provider: 12/12/18 14:47 Pain Level: 5 Notes: 48-year-old female presents the ED with complaints of decreased urinary frequency, dysuria, burning with urination for the last 3 days does report lower back pain as well, states while she was walking into ED, states she twisted at her hip. Denies falling on it but reports severe right hip pain. While patient was getting her vital signs taken in the ED, had allergic reaction to the blood pressure cuff, was recently wiped down with antiseptic wipes. 50 mg of Benadryl was given by this provider in triage, patient did have some erythema where the blood pressure cuff was. Denies any fevers or chills. Patient reports she did have left renal cancer a year ago, was resected, patient also had a breast mass seen in the ED when she was here in July 2018 for thoracic back pain, Patient did have that mass followed up and biopsied which was benign. Patient does have a history of hypertension, does take blood pressure medication. Patient does have a urologist she follows with as well as a primary care provider. Did not take her blood pressure medication today. Denies fevers, chills, chest pain,palpitations, shortness of breath, dyspnea, nausea, vomiting, diarrhea, abdominal pain, blurred vision, double vision, loss of vision, speech changes, LH, dizziness, syncope, headaches, wheezing, ST, URI, neck pain, weakness, bowel or bladder dysfunction, saddle anesthesia, numbness or tingling in bilateral upper or lower extremities equally, muscle paralysis, weakness in bilateral upper or lower extremities equally or rash. - REPRODUCTIVE Reproductive: DENIES: : Past Medical History - General Information source: Patient, Relative - Social History Smoking Status: Unknown if Ever Smoked Family History: Reviewed & Not Pertinent - Past Medical History Cardiac Medical History: Reports: Hx Hypertension Neurological Medical History: Reports: Hx Migraine, Hx Seizures - "Anxiety Induced Seizures" Endocrine Medical History: Reports: Hx Diabetes Mellitus Type 2 Renal/ Medical History: Reports: Hx End Stage Renal Disease - kidney cancer, Hx Kidney Stones - had surgery last dec/jan. Denies: Hx Peritoneal Dialysis Musculoskeletal Medical History: Reports Hx Fibromyalgia Psychiatric Medical History: Reports: Hx Anxiety, Hx Depression - anxiety Past Surgical History: Reports: Hx Section - 3, Hx Cholecystectomy, Hx Gynecologic Surgery - DNC x8, Hx Kidney (Renal Surgery), Hx Orthopedic Surgery - foot surgery - Immunizations Immunizations up to date: Yes Hx Diphtheria, Pertussis, Tetanus Vaccination: Yes Vertical Provider Document - CONSTITUTIONAL Agree With Documented VS: Yes Notes: PHYSICAL EXAMINATION: GENERAL: Well-appearing, well-nourished and in no acute distress. HEAD: Atraumatic, normocephalic. EYES: Pupils equal round and reactive to light, extraocular movements intact, conjunctiva are normal. ENT: Nares patent, oropharynx clear without exudates. Moist mucous membranes. NECK: Normal range of motion, supple without lymphadenopathy LUNGS: Breath sounds clear to auscultation bilaterally and equal. No wheezes rales or rhonchi. HEART: Regular rate and rhythm without murmurs ABDOMEN: Soft, nontender, nondistended abdomen. No guarding, no rebound. No masses appreciated. No CVA tenderness bilaterally, suprapubic tenderness on palpation Female : deferred Musculoskeletal: Normal range of motion, no pitting or edema. No cyanosis. right hip noted pain with abduction and extension of lumbar back at 45 degrees. dtr + 2 bilaterally and equally in BLE. full motor and sensory function. normal gait. cap refill < 3 seconds. distal pulses + 2 in BLE. lower back examination wnl. No erythema, warmth to touch, deformity, crepitus or obvious asymmetry of the affected leg compared to other of hips equally. NEUROLOGICAL: Cranial nerves grossly intact. Normal speech, normal gait. Normal sensory, motor exams PSYCH: Normal mood, normal affect. SKIN: Warm, Dry, normal turgor, no rashes or lesions noted. Noted erythema to right upper extremity were blood pressure cuff was, after 50 mg of Benadryl on reevaluation rash had resolved - INFECTION CONTROL TRAVEL OUTSIDE OF THE [place] IN LAST 30 DAYS: No Course - Re-evaluation Re-evalutation: 12/12/18 19:20 48-year-old female with a history of renal cancer that has been resected by Dr. lisa presents for evaluation of dysuria, urinalysis shows proteinuria hematuria and ketones, no leuks, nitrates negative. Renal ultrasound negative for renal stones renal masses, no obstruction. Patient did injure her head on the way again, twisted it tenderness on palpation at the hip denies any trauma was negative for acute fracture dislocation, advised to follow-up with wage and salary specialist, rice therapy, take Tylenol as needed. Discussed with patient if she wanted further imaging a CT scan of her abdomen pelvis with a history of renal cancer, she states that she does not want CT scanning due to having multiple CT scans throughout the last year, discussed with patient that we will start her on antibiotic therapy for cystitis 2 tablets of Macrobid twice a day, will obtain urine culture. Patient states she did not take her blood pressure medication today due to "running around" she has been here for the last 6 hours. On discharge vitals, patient's blood pressure was 176/92, clonidine 0.1 mg given p.o., advised patient not to take her blood pressure medication when she gets home, to take her blood pressure when she gets home and in the morning. Advised patient to follow-up with wage and salary specialist, inclusion intern although she is already affiliated with Dr. Yanique lisa in [place]. PCP is Dr. Rohan Garces. After performing a Medical Screening Examination, I estimate there is LOW risk for EXPANDING OR RUPTURED ABDOMINAL AORTIC ANEURYSM, CAUDA EQUINA SYNDROME, EPIDURAL MASS ABSCESS OR LESION(S), OSTEOMYELITIS,PERSONAL HISTORY OF CANCER, IMMUNOSUPPERSSSION, HISTORY OF IV DRUG USE, FRACTURE, CORD COMPERSSION, CANCER, RETROPERITONEAL BLEED, SPINAL EPIDURAL HEMATOMA, or HERNIATED DISK CAUSING SEVERE SPINAL STENOSIS, thus I consider the discharge disposition reasonable. I have reevaluated this patient multiple times and no significant life threatening changes are noted. The patient and I have discussed the diagnosis and risks, and we agree with discharging home and close follow-up. We also discussed returning to the Emergency Department immediately if new or worsening symptoms occur with the understanding that symptoms and presentations can change. We have discussed the symptoms which are most concerning (e.g., saddle anesthesia, urinary or bowel incontinence or retention, changing or worsening pain) that necessitate immediate return. Discharge - Discharge Clinical Impression: Cystitis, Hip strain, Allergic reaction Condition: Stable Disposition: HOME, SELF-CARE Instructions: Hematuria ([facility]), Dehydration ([facility]), Acute Allergic Reaction ([facility]), Sprain ([facility]) Additional Instructions: Your renal ultrasound was negative for any acute findings, no kidney stones, no bladder cyst, no renal masses. Your urinalysis showed he had proteinuria, hematuria and slightly dehydrated. Your symptoms sound consistent with cystitis, will start you on antibiotics twice a day for 3 days. Follow-up with urologist and primary care provider within the next 24 to 48 hours. Return to the ED for having any worsening symptoms, fever, vomiting, bowel or bladder dysfunction, abdominal pain etc. Return immediately for any new or worsening symptoms. Follow up with primary care provider, call tomorrow to make followup appointment. Prescriptions: Nitrofurantoin Macrocrystal [Macrodantin] 100 mg PO BID #6 capsule Forms: Return to Work Referrals: ADAM JANSEN MD [EMERITUS] - Follow up as needed DONNY PETERSEN MD [ACTIVE PROVISIONAL STAFF] - Follow up as needed PATRICIA CEE MD [ACTIVE STAFF] - Follow up as needed JOAO HOPE MD [COMMUNITY BASED STAFF] - Follow up in 3-5 days (tomorrow ) BRIAN JOHNSON MD [ACTIVE STAFF] - Follow up as needed
[2018-12-12 17:37] LABS: APPEARANCE,URINE CLOUDY; BILIRUBIN,URINE NEGATIVE (NEGATIVE); COLOR,URINE AMBER; GLUCOSE, URINE NEGATIVE (NEGATIVE); KETONES,URINE TRACE mg/dL (NEGATIVE); LEUKOCYTE ESTERASE,URINE NEGATIVE (NEGATIVE); NITRITE,URINE NEGATIVE (NEGATIVE); PROTEIN,URINE 100 mg/dL (NEGATIVE); URINE SPECIFIC GRAVITY 1.021; UROBILINOGEN,URINE NEGATIVE mg/dL (<2.0)
[2018-12-12] MEDS ORDERED: NITROFURANTOIN MONOHYD/M-CRYST 100 MG CAPSULE PO ONE (18:18)
--- NOTE | 2018-12-12 18:31 | RADIOLOGY REPORT (SQ) ---
EXAM DESCRIPTION: U/S RETROPERITON (RENAL/AORTA) COMPLETED DATE/TIME: 12/12/2018 5:58 pm REASON FOR STUDY: left renal cva, hx of renal Ca and renal stones COMPARISON: None. TECHNIQUE: Dynamic and static grayscale images acquired of the kidneys and bladder and recorded on P ACS. Additional selected color Doppler and spectral images recorded. LIMITATIONS: None. FINDINGS: RIGHT KIDNEY: Normal size, 10.7 cm. Normal echogenicity. No solid or suspicious masses. No hydronephrosis. No calcifications. LEFT KIDNEY: Normal size, 8 cm. Normal echogenicity. Partial nephrectomy 2018. No hydronephrosis. N o calcifications. BLADDER: The bladder was empty and is therefore not evaluated. OTHER FINDINGS: No other significant finding. IMPRESSION: NORMAL RENAL AND BLADDER ULTRASOUND. TECHNICAL DOCUMENTATION: JOB ID: [id number] [employer]- All Rights Reserved Reading location - IP/workstation name: [email or web address]
[2018-12-12] MEDS ORDERED: CLONIDINE HCL 0.1 MG TABLET PO ONE (19:10)
[2018-12-12 19:47] VITALS: BP 158/98
== END 2018-12-12 19:46 | disposition home or self-care (01) ==
LOC: ER 14:17
DX: N30.91 Cystitis, unspecified with hematuria (principal); S76.012A Strain of muscle, fascia and tendon of left hip, initial encounter; T78.40XA Allergy, unspecified, initial encounter; R21 Rash and other nonspecific skin eruption; X58.XXXA Exposure to other specified factors, initial encounter; M54.5 Low back pain; M25.551 Pain in right hip; X50.0XXA Overexertion from strenuous movement or load, initial encounter; Y93.89 Activity, other specified; R80.9 Proteinuria, unspecified; E11.9 Type 2 diabetes mellitus without complications; I10 Essential (primary) hypertension; Z79.899 Other long term (current) drug therapy; Z85.528 Personal history of other malignant neoplasm of kidney
CPT/HCPCS: 99283; 87086; 81001; 73502; 76770; A9270 ×3; J8499

== ENCOUNTER 2019-05-03 20:56 | Emergency (ER) | payer MEDICARE, MEDICAID ==
[2019-05-03] MEDS ORDERED: METOCLOPRAMIDE HCL 10 MG TABLET PO ONE (21:35)
--- NOTE | 2019-05-03 21:36 | ER Document Report ---
ED Medical Screen (RME) - General Chief Complaint: Constipation Stated Complaint: CONSTIPATION,ABDOMINAL PAIN Time Seen by Provider: 05/03/19 21:29 Primary Care Provider: JANICE BEAL MD [Primary Care Provider] - Follow up as needed TRAVEL OUTSIDE OF THE [place] IN LAST 30 DAYS: No - HPI Notes: 05/03/19 21:34 Patient is a 48-year-old female with a history of issues with constipation who presents complaining of difficulty having a bowel movement for 4 days. Patient states that she had small "rabbit towards" style bowel movement last night, but she is straining to go and is having pain with doing so. She does have associated nausea intermittently as well. Patient has tried enemas at home with no relief. She is asking to get relief here in the emergency department. She is able to urinate normally. No fever. I have treated and performed a rapid initial assessment of this patient. A comprehensive ED assessment and evaluation of the patient, analysis of test results and completion of medical decision making process will be conducted by additional ED providers. PHYSICAL EXAMINATION: GENERAL: Well-appearing, well-nourished and in no acute distress. A&Ox4. Answers questions appropriately. - Related Data Allergies/Adverse Reactions: hydrocodone Allergy (Verified 05/03/19 21:22) oxycodone HCl [From Percocet] Allergy (Verified 05/03/19 21:22) Past Medical History - Social History Frequency of alcohol use: None Drug Abuse: None - Past Medical History Cardiac Medical History: Reports: Hx Hypertension Neurological Medical History: Reports: Hx Migraine, Hx Seizures - "Anxiety Induced Seizures" Endocrine Medical History: Reports: Hx Diabetes Mellitus Type 2 Renal/ Medical History: Reports: Hx End Stage Renal Disease - kidney cancer, Hx Kidney Stones - had surgery last dec/jan. Denies: Hx Peritoneal Dialysis Musculoskeltal Medical History: Reports Hx Fibromyalgia Psychiatric Medical History: Reports: Hx Anxiety, Hx Depression - anxiety Past Surgical History: Reports: Hx Section - 3, Hx Cholecystectomy, Hx Gynecologic Surgery - DNC x8, Hx Kidney (Renal Surgery), Hx Orthopedic Surgery - foot surgery - Immunizations Immunizations up to date: Yes Hx Diphtheria, Pertussis, Tetanus Vaccination: Yes Physical Exam - Vital signs Vitals: Temp Pulse Resp BP Pulse Ox 99.1 F 95 19 153/102 H 93 05/03/19 21:01 12/13/19 21:01 05/03/19 21:01 05/03/19 21:01 05/03/19 21:01 Course - Vital Signs Vital signs: Temp Pulse Resp BP Pulse Ox 99.1 F 95 19 153/102 H 93 05/03/19 21:22 05/03/19 21:01 05/03/19 21:22 05/03/19 21:01 05/03/19 21:22 Doctor's Discharge - Discharge Referrals: JANICE BEAL MD [Primary Care Provider] - Follow up as needed
[2019-05-03 22:23] LABS: ABSOLUTE BASOPHILS # (AUTO) 0.1 10^3/uL (0.0-0.2); ABSOLUTE EOSINOPHILS # (AUTO) 0.6 10^3/uL (0.0-0.6); ABSOLUTE MONOCYTES (AUTO) 0.9 10^3/uL (0.1-1.4); ABSOLUTE NEUT (AUTO) 6.6 10^3/uL (1.7-8.2); BASOPHILS % (AUTO) 0.9 % (0-2); EOSINOPHILS % (AUTO) 5.6 % (0-6); HEMATOCRIT 41.1 % (36.0-47.0); HEMOGLOBIN 13.8 g/dL (12.0-15.5); LYMPHOCYTES % (AUTO) 26.6 % (13-45); MEAN CORPUSCULAR HEMOGLOBIN 28.8 pg (27.0-33.4); MEAN CORPUSCULAR HGB CONC 33.5 g/dL (32.0-36.0); MEAN CORPUSCULAR VOLUME 86 fl (80-97); MONOCYTES % (AUTO) 8.3 % (3-13); PLATELET COUNT 259 10^3/uL (150-450); RED BLOOD COUNT 4.78 10^6/uL (3.72-5.28); RED CELL DISTRIBUTION WIDTH 14.6 % (11.5-14.0); SEGMENTED NEUTROPHILS % (AUTO) 58.6 % (42-78); TOTAL CELLS COUNTED % (AUTO) 100 %; WHITE BLOOD COUNT 11.3 10^3/uL (4.0-10.5)
[2019-05-03 22:27] LABS: APPEARANCE,URINE CLOUDY; BILIRUBIN,URINE NEGATIVE (NEGATIVE); COLOR,URINE YELLOW; GLUCOSE, URINE NEGATIVE (NEGATIVE); KETONES,URINE NEGATIVE (NEGATIVE); PROTEIN,URINE NEGATIVE (NEGATIVE); URINE SPECIFIC GRAVITY 1.012; UROBILINOGEN,URINE NEGATIVE mg/dL (<2.0)
[2019-05-03 22:40] LABS: ALBUMIN 4.7 g/dL (3.5-5.0); ALKALINE PHOSPHATASE 68 U/L (38-126); ANION GAP 11 (5-19); ASPARTATE AMINO TRANSFERASE 39 U/L (14-36); BILIRUBIN,DIRECT 0.1 mg/dL (0.0-0.4); BILIRUBIN,TOTAL 0.3 mg/dL (0.2-1.3); BLOOD UREA NITROGEN 12 mg/dL (7-20); CALCIUM 11.8 mg/dL (8.4-10.2); CARBON DIOXIDE 33 mmol/L (22-30); CHLORIDE 97 mmol/L (98-107); GLUCOSE 186 mg/dL (75-110); POTASSIUM 4.5 mmol/L (3.6-5.0)
--- NOTE | 2019-05-03 22:42 | RADIOLOGY REPORT (SQ) ---
EXAM DESCRIPTION: X-RAY ABDOMEN, ONE VIEW CLINICAL HISTORY: History of abdominal pain and cramping. COMPARISON: None available TECHNIQUE: [Single view of the abdomen and pelvis] FINDINGS: The hemidiaphragms are not included in the [id number]. The bowel gas pattern is nonspecific. There is suggestion of moderate colonic stool volume. Surgical clips in the right upper quadrant likely indicate prior cholecystectomy. No suspicious lytic or blastic osseous lesions are identified. IMPRESSION: Nonspecific bowel gas pattern with moderate colonic stool volume.
[2019-05-04 00:58] VITALS: BP 160/96
== END 2019-05-04 03:39 | disposition left against medical advice (07) ==
LOC: ER 20:56
DX: K59.00 Constipation, unspecified (principal); R11.0 Nausea; R10.9 Unspecified abdominal pain; E11.22 Type 2 diabetes mellitus with diabetic chronic kidney disease; I12.0 Hypertensive chronic kidney disease with stage 5 chronic kidney disease or end stage renal disease; N18.6 End stage renal disease; Z88.6 Allergy status to analgesic agent; Z90.49 Acquired absence of other specified parts of digestive tract
CPT/HCPCS: 36415; 74018; 80053; 81001; 83690; 85025; 99281

== ENCOUNTER 2019-08-21 12:47 | Emergency (ER) | payer MEDICARE, MEDICAID ==
[2019-08-21] MEDS ORDERED: NORMAL SALINE 1000 ML 1,000 ML IV ONE (13:02)
[2019-08-21] MEDS ORDERED: ONDANSETRON HCL INJ/PF 4 MG/2 ML SDV IV ONE (13:02)
--- NOTE | 2019-08-21 13:04 | ER Document Report ---
ED Medical Screen (RME) - General Chief Complaint: Abdominal Pain Stated Complaint: ABDOMINAL PAIN Time Seen by Provider: 08/21/19 12:59 Primary Care Provider: JANICE BEAL MD [Primary Care Provider] - Follow up as needed Mode of Arrival: Ambulatory Information source: Patient Notes: 48-year-old female patient with history of hypertension, diabetes, renal cell carcinoma with partial nephrectomy presenting to the emergency department chief complaint of back pain, headache, diarrhea and vomiting. Patient was sent over from her primary care provider's office with concerns that her sugar was also elevated into the 400 range. Patient reports she usually just takes oral medications for her diabetes, states that her provider was trying to switch her to insulin however her insurance will not cover it. Patient appears well, nontoxic, vital signs within normal limits. No acute distress noted. I have greeted and performed a rapid initial assessment of this patient. A comprehensive ED assessment and evaluation of the patient, analysis of test results and completion of the medical decision making process will be conducted by additional ED providers. I have specifically instructed the patient or family members with the patient to immediately return to any nursing staff should anything change in the patient's condition or with their chief complaint. TRAVEL OUTSIDE OF THE [place] IN LAST 30 DAYS: No - Related Data Allergies/Adverse Reactions: hydrocodone Allergy (Intermediate, Verified 08/21/19 13:00) Itching oxycodone HCl [From Percocet] Allergy (Intermediate, Verified 08/21/19 13:00) Past Medical History - Past Medical History Cardiac Medical History: Reports: Hx Hypertension Neurological Medical History: Reports: Hx Migraine, Hx Seizures - "Anxiety Induced Seizures" Endocrine Medical History: Reports: Hx Diabetes Mellitus Type 2 Renal/ Medical History: Reports: Hx End Stage Renal Disease - kidney cancer, Hx Kidney Stones - had surgery last dec/jan. Denies: Hx Peritoneal Dialysis Musculoskeltal Medical History: Reports Hx Fibromyalgia Psychiatric Medical History: Reports: Hx Anxiety, Hx Depression - anxiety Past Surgical History: Reports: Hx Section - 3, Hx Cholecystectomy, Hx Gynecologic Surgery - DNC x8, Hx Kidney (Renal Surgery), Hx Orthopedic Surgery - foot surgery - Immunizations Immunizations up to date: Yes Hx Diphtheria, Pertussis, Tetanus Vaccination: Yes Physical Exam - Vital signs Vitals: Temp Pulse Resp BP Pulse Ox 97.5 F 96 18 175/99 H 97 08/21/19 12:51 08/21/19 12:51 08/21/19 12:51 08/21/19 12:51 08/21/19 12:51 Course - Vital Signs Vital signs: Temp Pulse Resp BP Pulse Ox 97.5 F 96 18 175/99 H 97 08/21/19 12:51 08/21/19 12:51 08/21/19 12:51 08/21/19 12:51 08/21/19 12:51 Doctor's Discharge - Discharge Referrals: JANICE BEAL MD [Primary Care Provider] - Follow up as needed
[2019-08-21 14:18] LABS: ABSOLUTE EOSINOPHILS # (AUTO) 1.5 10^3/uL (0.0-0.6); ABSOLUTE LYMPHOCYTES (AUTO) 1.5 10^3/uL (0.5-4.7); ABSOLUTE MONOCYTES (AUTO) 0.7 10^3/uL (0.1-1.4); ABSOLUTE NEUT (AUTO) 7.3 10^3/uL (1.7-8.2); BASOPHILS % (AUTO) 0.1 % (0-2); EOSINOPHILS % (AUTO) 13.5 % (0-6); HEMATOCRIT 43.6 % (36.0-47.0); HEMOGLOBIN 14.9 g/dL (12.0-15.5); LYMPHOCYTES % (AUTO) 13.4 % (13-45); MEAN CORPUSCULAR HEMOGLOBIN 28.9 pg (27.0-33.4); MEAN CORPUSCULAR HGB CONC 34.1 g/dL (32.0-36.0); MEAN CORPUSCULAR VOLUME 85 fl (80-97); MONOCYTES % (AUTO) 6.4 % (3-13); PLATELET COUNT 231 10^3/uL (150-450); RED BLOOD COUNT 5.16 10^6/uL (3.72-5.28); SEGMENTED NEUTROPHILS % (AUTO) 66.6 % (42-78); TOTAL CELLS COUNTED % (AUTO) 100 %; WHITE BLOOD COUNT 10.9 10^3/uL (4.0-10.5)
[2019-08-21 14:21] LABS: VENOUS BLOOD BASE EXCESS 2.8 mmol/L; VENOUS BLOOD HCO3 27.4 mmol/L (20-32); VENOUS BLOOD PCO2 41.7 mmHg (35-63); VENOUS BLOOD PH 7.44 (7.30-7.42)
[2019-08-21 14:39] LABS: ALBUMIN 4.5 g/dL (3.5-5.0); ALKALINE PHOSPHATASE 98 U/L (38-126); ANION GAP 9 (5-19); ASPARTATE AMINO TRANSFERASE 28 U/L (14-36); BILIRUBIN,DIRECT 0.2 mg/dL (0.0-0.4); BILIRUBIN,TOTAL 0.5 mg/dL (0.2-1.3); BLOOD UREA NITROGEN 12 mg/dL (7-20); CALCIUM 10.8 mg/dL (8.4-10.2); CARBON DIOXIDE 29 mmol/L (22-30); CHLORIDE 97 mmol/L (98-107); GLUCOSE 309 mg/dL (75-110); POTASSIUM 4.5 mmol/L (3.6-5.0); TOTAL PROTEIN 7.8 g/dL (6.3-8.2)
--- NOTE | 2019-08-21 14:42 | ER Document Report ---
ED GI/ - General Chief Complaint: Flank Pain Stated Complaint: ABDOMINAL PAIN Time Seen by Provider: 08/21/19 12:59 Primary Care Provider: JANICE BEAL MD [Primary Care Provider] - Follow up in 3-5 days Mode of Arrival: Ambulatory Notes: Patient is a 48-year-old female with a history of kidney stones who presents to the emergency department with bilateral flank pain. Patient states that she passed 2 stones. She admits to having some nausea. Patient states that she was seen by her primary care provider and was sent over due to her blood sugars being over 400. Patient states that they were switching over her to a new medication, which is at the pharmacy, but the patient has not started it yet. Patient has a history of hypertension, renal cell carcinoma with a partial n ephrectomy, diabetes, and kidney stones. Patient is followed by a edge grinder and takes Flomax every day. TRAVEL OUTSIDE OF THE [place] IN LAST 30 DAYS: No - Related Data Allergies/Adverse Reactions: hydrocodone Allergy (Intermediate, Verified 08/21/19 13:00) Itching oxycodone HCl [From Percocet] Allergy (Intermediate, Verified 08/21/19 13:00) Home Medications: enalopril 20, victoza, aprazolam, gabapentin, cymbalta Past Medical History - General Information source: Patient - Social History Smoking Status: Current Every Day Smoker Chew tobacco use (# tins/day): No Frequency of alcohol use: None Drug Abuse: None Family History: Reviewed & Not Pertinent Patient has suicidal ideation: No Patient has homicidal ideation: No - Past Medical History Cardiac Medical History: Reports: Hx Hypertension Neurological Medical History: Reports: Hx Migraine, Hx Seizures - "Anxiety Induced Seizures" Endocrine Medical History: Reports: Hx Diabetes Mellitus Type 2 Renal/ Medical History: Reports: Hx End Stage Renal Disease - kidney cancer, Hx Kidney Stones - had surgery last dec/jan. Denies: Hx Peritoneal Dialysis Musculoskeletal Medical History: Reports Hx Fibromyalgia Psychiatric Medical History: Reports: Hx Anxiety, Hx Depression - anxiety Past Surgical History: Reports: Hx Section - 3, Hx Cholecystectomy, Hx Gynecologic Surgery - DNC x8, Hx Kidney (Renal Surgery), Hx Orthopedic Surgery - foot surgery - Immunizations Immunizations up to date: Yes Hx Diphtheria, Pertussis, Tetanus Vaccination: Yes Review of Systems - Review of Systems Notes: REVIEW OF SYSTEMS: CONSTITUTIONAL : Denies recent illness. Denies recent unintentional weight loss. Denies fever, chills, or sweats. EENT: Denies eye, ear, throat, or mouth pain, discharge, or symptoms. Denies nasal or sinus congestion. CARDIOVASCULAR: Denies chest pain. RESPIRATORY: Denies shortness of breath, cough, congestion, difficulty breathing, or wheezing. GASTROINTESTINAL: See HPI. GENITOURINARY: Denies difficulty urinating, burning, blood in urine, urgency or frequency. MUSCULOSKELETAL: See HPI. Denies joint pain or swelling. SKIN: Denies rash, itchiness, or lesions HEMATOLOGIC : Denies easy bruising or bleeding. LYMPHATIC: Denies swollen, painful, enlarged glands. NEUROLOGICAL: Denies no numbness or tingling denies weakness. Denies altered mental status. Denies alteration in speech. See HPI. PSYCHIATRIC: Denies stress, anxiety, alteration in sleep patterns, or depression. All other systems reviewed and negative. Physical Exam - Vital signs Vitals: Temp Pulse Resp BP Pulse Ox 97.5 F 96 18 175/99 H 97 08/21/19 12:51 08/21/19 12:51 08/21/19 12:51 08/21/19 12:51 08/21/19 12:51 - Notes Notes: PHYSICAL EXAMINATION: GENERAL: Appears well, healthy, well-nourished, no acute distress. HEAD: Normocephalic, atraumatic. EYES: PERRL, conjunctiva normal, all extraocular movements intact, sclera nonicteric ENT: Moist mucous membranes. NECK: Supple, no noticeable swelling, redness, rash. Normal range of motion. LUNGS: Equal breath sounds bilaterally and clear to auscultation. No wheezes rales or rhonchi. CARDIOVASCULAR: S1-S2, regular rate, regular rhythm. Radial pulses 2+, normal. ABDOMEN: Normoactive bowel sounds. Soft, nontender, no guarding, no rebound tenderness, and no masses palpated. EXTREMITIES: Normal strength and range of motion, no pitting or edema. No cyanosis. NEUROLOGICAL: Moves all extremities upon command. Strength 5/5 in all extremities. PSYCH: Normal mood, normal affect. SKIN: Warm, dry. No rash, lesions, ulcerations noted. Normal skin turgor. BACK: CVA tenderness bilaterally Course - Re-evaluation Re-evalutation: 08/21/19 Hematology shows a mild leukocytosis of 10,900. Blood gas is normal. Chemistry shows a glucose of 309. After a liter of IV fluids her blood sugar went down to 217. Patient was slightly hyponatremic with a sodium of 134. She received f luids. This also will have corrected her calcium of 10.8. ALT is slightly elevated. Urinalysis shows ketones in her urine, again, the patient received fluids. No leukocytosis noted. Patient does have yeast noted. She was treated for a urinary yeast infection with 200 mg of Diflucan here in the emergency department. Patient will follow-up with her edge grinder. No hydronephrosis or hydroureter ureter noted on her CT scan. She does have stable stones in her kidneys. Patient is thankful for her care and is happy that she does not have any moving stones at this time. Follow-up precautions were given. Verbal discharge instructions were given to the patient. They verbalized understand ing. They are stable for discharge. - Vital Signs Vital signs: Temp Pulse Resp BP Pulse Ox 98.0 F 91 16 159/101 H 98 08/21/19 16:48 08/21/19 16:48 08/21/19 16:48 08/21/19 17:02 08/21/19 16:48 - Laboratory Result Diagrams: 08/21/19 13:51 08/21/19 13:51 Laboratory results interpreted by me: 08/21/19 08/21/19 08/21/19 13:17 13:51 13:51 WBC 10.9 H Eos % (Auto) 13.5 H Absolute Eos (auto) 1.5 H VBG pH Sodium 134.7 L Chloride 97 L Glucose 309 H POC Glucose Calcium 10.8 H ALT 53 H Urine Protein 30 H Urine Glucose (UA) >=500 H Urine Ketones TRACE H 08/21/19 08/21/19 13:51 16:32 WBC Eos % (Auto) Absolute Eos (auto) VBG pH 7.44 H Sodium Chloride Glucose POC Glucose 217 H Calcium ALT Urine Protein Urine Glucose (UA) Urine Ketones Discharge - Discharge Clinical Impression: Flank pain, Yeast UTI Condition: Stable Disposition: HOME, SELF-CARE Additional Instructions: You are seen today in the emergency department for flank pain. The stones you have are stable inside your kidney. Please follow-up with your urologist. Continue taking your Flomax. You also have yeast in your urine. You were treated here in the emergency department with Diflucan to treat the yeast infection. Your blood sugar was also elevated. Please take the new medication your primary care provider prescribed to you. Please follow-up with your primary care provider in regards to this visit. Prescriptions: Ondansetron [Zofran Odt 4 mg Tablet] 1 - 2 tab PO Q4H PRN #15 tab.rapdis PRN Reason: For Nausea/Vomiting Forms: Return to Work Referrals: JANICE BEAL MD [Primary Care Provider] - Follow up in 3-5 days
[2019-08-21 14:45] LABS: APPEARANCE,URINE CLOUDY; BILIRUBIN,URINE NEGATIVE (NEGATIVE); COLOR,URINE YELLOW; GLUCOSE, URINE >=500 mg/dL (NEGATIVE); KETONES,URINE TRACE mg/dL (NEGATIVE); LEUKOCYTE ESTERASE,URINE NEGATIVE (NEGATIVE); NITRITE,URINE NEGATIVE (NEGATIVE); PROTEIN,URINE 30 mg/dL (NEGATIVE); URINE SPECIFIC GRAVITY 1.024; UROBILINOGEN,URINE NEGATIVE mg/dL (<2.0)
[2019-08-21] MEDS ORDERED: KETOROLAC TROMETHAMINE INJ/PF 30 MG/1 ML SDV IV ONE (14:54)
--- NOTE | 2019-08-21 15:37 | RADIOLOGY REPORT (SQ) ---
EXAM DESCRIPTION: CT ABD/PELVIS NO ORAL OR IV IMAGES COMPLETED DATE/TIME: 08/21/2019 3:16 pm REASON FOR STUDY: right flank pain; hx of kidney stones COMPARISON: None. TECHNIQUE: CT scan of the abdomen and pelvis performed without intravenous or oral contrast. Images reviewed with lung, soft tissue, and bone windows. Reconstructed coronal and sagittal MPR images revi ewed. All images stored on PACS. All CT scanners at this facility use dose modulation, iterative reconstruction, and/or weight based d osing when appropriate to reduce radiation dose to as low as reasonably achievable (ALARA). [facility]: Dose Right [facility]: CareDose [facility]: Dose Right [facility]: Teradose 4D [facility]: [employer] RADIATION DOSE: CT Rad equipment meets quality standard of care and radiation dose reduction techniq ues were employed. CTDIvol: 8.4 mGy. DLP: 496 mGy-cm.mGy. LIMITATIONS: None. FINDINGS: LOWER CHEST: No significant findings. No nodules or infiltrates. NON-CONTRASTED LIVER, SPLEEN, ADRENALS: Evaluation limited by lack of IV contrast. Bilateral low-den sity adrenal thickening compatible with adrenal adenomas, stable. No identified significant masses. Hepatic steatosis. PANCREAS: No masses. No peripancreatic inflammatory changes. GALLBLADDER: Surgically absent. RIGHT KIDNEY AND URETER: No suspicious masses. Assessment limited by lack of IV contrast. Nonobstru cting lower pole stone measuring 8 mm. Additional punctate nonobstructing lower pole stone. No hyd ronephrosis or hydroureter. LEFT KIDNEY AND URETER: Assessment limited by lack of intravenous contrast. Postsurgical changes fro m previously-seen left lower pole lesion with scattered postsurgical calcifications. Nonobstructing lower pole stone. No hydronephrosis or hydroureter. AORTA AND RETROPERITONEUM: No aneurysm. No retroperitoneal masses or adenopathy. BOWEL AND PERITONEAL CAVITY: No evidence of intestinal obstruction. No focal bowel wall thickening. APPENDIX: Normal. PELVIS, BLADDER, AND ABDOMINAL WALL:Unremarkable urinary bladder. Enlarged uterine fundus, likely se condary to uterine leiomyoma, stable. Unremarkable ovaries. Fat containing umbilical hernia. BONES: No acute bony abnormality. No suspicious lytic or blastic osseous lesions. OTHER: No other significant finding. IMPRESSION: 1. Bilateral nonobstructing renal stones. No evidence of obstructive uropathy. 2. Stable postsurgical changes from the left lower pole renal resection. No definitive recurrent di sease although evaluation limited without intravenous contrast. 3. Hepatic steatosis. COMMENT: Quality ID # [id number]: Final reports with documentation of one or more dose reduction techniques (e.g., Automated exposure control, adjustment of the mA and/or kV according to patient size, use of iterative reconstruction technique) TECHNICAL DOCUMENTATION: JOB ID: [id number] 2010 [employer]- All Rights Reserved Reading location - IP/workstation name: [email or web address]
[2019-08-21] MEDS ORDERED: FLUCONAZOLE 100 MG TABLET PO ONE (16:16)
[2019-08-21 17:03] VITALS: BP 159/101
== END 2019-08-21 17:08 | disposition home or self-care (01) ==
LOC: ER 12:47
DX: B37.49 Other urogenital candidiasis (principal); N20.0 Calculus of kidney; R10.9 Unspecified abdominal pain; R11.0 Nausea; I10 Essential (primary) hypertension; E11.9 Type 2 diabetes mellitus without complications; E87.1 Hypo-osmolality and hyponatremia; R74.0 Nonspecific elevation of levels of transaminase and lactic acid dehydrogenase [LDH]; F17.200 Nicotine dependence, unspecified, uncomplicated; M79.7 Fibromyalgia; F41.9 Anxiety disorder, unspecified; F32.9 Major depressive disorder, single episode, unspecified; Z79.84 Long term (current) use of oral hypoglycemic drugs; Z79.899 Other long term (current) drug therapy; Z90.5 Acquired absence of kidney; Z88.6 Allergy status to analgesic agent; Z88.5 Allergy status to narcotic agent; Z85.528 Personal history of other malignant neoplasm of kidney
CPT/HCPCS: 99284; 96361; 96374; 96375; 36415; 82962; 83690; 85025; 80053; 81001; 82803; 74176; J1885; J2405; J7030; A9270

== ENCOUNTER 2019-10-09 05:35 | Emergency (ER) | payer MEDICARE, MEDICAID ==
[2019-10-09] MEDS ORDERED: ONDANSETRON HCL INJ/PF 4 MG/2 ML SDV IV ONE (06:01)
[2019-10-09] MEDS ORDERED: MORPHINE SULFATE 10 MG/ML INJ IV ONE ×2 (06:01→07:26)
[2019-10-09] MEDS ORDERED: NORMAL SALINE 1000 ML 1,000 ML IV ONE (06:01)
--- NOTE | 2019-10-09 06:10 | ER Document Report ---
ED Medical Screen (RME) - General Chief Complaint: Possible Kidney Stone Stated Complaint: FLANK PAIN Time Seen by Provider: 10/09/19 05:56 Primary Care Provider: JANICE BEAL MD [Primary Care Provider] - Follow up as needed Notes: 49-year-old female with a history of kidney stones comes emergency department for chief complaint of severe right flank pain and right abdominal pain with multiple episodes of vomiting that started last night. She reports a history of renal cancer, partial nephrectomy, kidney that grew back, and multiple renal stones. Patient currently follows with urology. Patient denies fever. TRAVEL OUTSIDE OF THE [place] IN LAST 30 DAYS: No - Related Data Allergies/Adverse Reactions: hydrocodone Allergy (Intermediate, Verified 08/21/19 13:00) Itching oxycodone HCl [From Percocet] Allergy (Intermediate, Verified 08/21/19 13:00) Past Medical History - Past Medical History Cardiac Medical History: Reports: Hx Hypertension Neurological Medical History: Reports: Hx Migraine, Hx Seizures - "Anxiety Induced Seizures" Endocrine Medical History: Reports: Hx Diabetes Mellitus Type 2 Renal/ Medical History: Reports: Hx End Stage Renal Disease - kidney cancer, Hx Kidney Stones - had surgery last dec/jan. Denies: Hx Peritoneal Dialysis Musculoskeltal Medical History: Reports Hx Fibromyalgia Psychiatric Medical History: Reports: Hx Anxiety, Hx Depression - anxiety Past Surgical History: Reports: Hx Section - 3, Hx Cholecystectomy, Hx Gynecologic Surgery - DNC x8, Hx Kidney (Renal Surgery), Hx Orthopedic Surgery - foot surgery - Immunizations Immunizations up to date: Yes Hx Diphtheria, Pertussis, Tetanus Vaccination: Yes Physical Exam - Vital signs Vitals: Temp Pulse Resp BP Pulse Ox 97.4 F 88 19 153/105 H 98 10/09/19 05:40 10/09/19 05:40 10/09/19 05:40 10/09/19 05:40 10/09/19 05:40 - General General appearance: Other - Patient appears to be in a lot of pain, restless, has difficulty holding still - Abdominal Tenderness: Tender - Mild to moderate tenderness in the right abdomen generally, nonspecific, no guarding Course - Re-evaluation Re-evalutation: Patient has a history of kidney stones, no fever, had a CAT scan here last month, and has not had 11 CAT scans of the abdomen pelvis in this facility. Starting with ultrasound and general work-up along with symptom management. I have greeted and performed a rapid initial assessment of this patient. A comprehensive ED assessment and evaluation of the patient, analysis of test results and completion of the medical decision making process will be conducted by additional ED providers. - Vital Signs Vital signs: Temp Pulse Resp BP Pulse Ox 97.4 F 88 19 153/105 H 98 10/09/19 05:40 10/09/19 05:40 10/09/19 05:40 10/09/19 05:40 10/09/19 05:40 Doctor's Discharge - Discharge Referrals: JANICE BEAL MD [Primary Care Provider] - Follow up as needed
[2019-10-09 06:21] LABS: ABSOLUTE BASOPHILS # (AUTO) 0.1 10^3/uL (0.0-0.2); ABSOLUTE EOSINOPHILS # (AUTO) 0.6 10^3/uL (0.0-0.6); ABSOLUTE LYMPHOCYTES (AUTO) 2.2 10^3/uL (0.5-4.7); ABSOLUTE MONOCYTES (AUTO) 0.7 10^3/uL (0.1-1.4); ABSOLUTE NEUT (AUTO) 5.8 10^3/uL (1.7-8.2); BASOPHILS % (AUTO) 1.2 % (0-2); EOSINOPHILS % (AUTO) 6.6 % (0-6); HEMATOCRIT 41.9 % (36.0-47.0); HEMOGLOBIN 14.5 g/dL (12.0-15.5); LYMPHOCYTES % (AUTO) 23.3 % (13-45); MEAN CORPUSCULAR HEMOGLOBIN 29.5 pg (27.0-33.4); MEAN CORPUSCULAR HGB CONC 34.6 g/dL (32.0-36.0); MEAN CORPUSCULAR VOLUME 85 fl (80-97); MONOCYTES % (AUTO) 7.7 % (3-13); PLATELET COUNT 254 10^3/uL (150-450); RED BLOOD COUNT 4.93 10^6/uL (3.72-5.28); SEGMENTED NEUTROPHILS % (AUTO) 61.2 % (42-78); TOTAL CELLS COUNTED % (AUTO) 100 %; WHITE BLOOD COUNT 9.4 10^3/uL (4.0-10.5)
[2019-10-09 06:51] LABS: ALBUMIN 4.5 g/dL (3.5-5.0); ALKALINE PHOSPHATASE 78 U/L (38-126); ANION GAP 8 (5-19); ASPARTATE AMINO TRANSFERASE 28 U/L (14-36); BILIRUBIN,TOTAL 0.5 mg/dL (0.2-1.3); BLOOD UREA NITROGEN 14 mg/dL (7-20); CALCIUM 10.5 mg/dL (8.4-10.2); CARBON DIOXIDE 27 mmol/L (22-30); CHLORIDE 103 mmol/L (98-107); GLUCOSE 132 mg/dL (75-110); POTASSIUM 4.1 mmol/L (3.6-5.0); TOTAL PROTEIN 7.9 g/dL (6.3-8.2)
[2019-10-09] MEDS ORDERED: KETOROLAC TROMETHAMINE INJ/PF 30 MG/1 ML SDV IV ONE (07:26)
--- NOTE | 2019-10-09 07:53 | RADIOLOGY REPORT (SQ) ---
Ultrasound retroperitoneum limited on 10/09/2019 at 6:42 AM CLINICAL INDICATION: Right-sided back pain, vomiting, history of renal cancer status post partial left nephrectomy COMPARISON: CT from 08/21/2019 FINDINGS: Multiple sonographic images are obtained throughout the kidneys and bladder, both transverse and sagittal images are obtained. Visualized aorta and IVC are unremarkable without evidence of an aneurysm. Right kidney measures approximately 12.3 cm in greatest wxmy-vd-wboi length. There is a 1.4 cm echogenic focus in the right kidney with posterior shadowing consistent with a right renal stone. Left kidney measures approximately 9.3 cm in greatest [id number]-[id number] length. The patient is known to have a partial nephrectomy along the lower pole of the left kidney from the prior CT. Kidneys otherwise appear normal in size and morphology and without hydronephrosis. No bladder wall thickening or intraluminal filling defect is noted. IMPRESSION: Right nephrolithiasis, otherwise essentially unremarkable.
[2019-10-09 08:01] LABS: APPEARANCE,URINE SLIGHTLY-CLOUDY; BILIRUBIN,URINE NEGATIVE (NEGATIVE); COLOR,URINE YELLOW; GLUCOSE, URINE NEGATIVE (NEGATIVE); KETONES,URINE NEGATIVE (NEGATIVE); LEUKOCYTE ESTERASE,URINE NEGATIVE (NEGATIVE); NITRITE,URINE NEGATIVE (NEGATIVE); PROTEIN,URINE NEGATIVE (NEGATIVE); URINE SPECIFIC GRAVITY 1.014; UROBILINOGEN,URINE NEGATIVE mg/dL (<2.0)
--- NOTE | 2019-10-09 08:07 | ER Document Report ---
ED General - General Chief Complaint: Flank Pain Stated Complaint: FLANK PAIN Time Seen by Provider: 10/09/19 05:56 Primary Care Provider: JANICE BEAL MD [Primary Care Provider] - Follow up as needed Mode of Arrival: Ambulatory Information source: Patient TRAVEL OUTSIDE OF THE [place] IN LAST 30 DAYS: No - HPI Notes: Patient presents complaining of right flank pain. She states she has a history of renal cell cancer as well as kidney stones. She states this pain feels exactly like her previous kidney stones. She states it is severe and radiates around to her right abdomen. It is also constant. She has had some nausea. No problems with diarrhea. Nothing makes the pain better or worse. It is a sharp pain. - Related Data Allergies/Adverse Reactions: hydrocodone Allergy (Intermediate, Verified 08/21/19 13:00) Itching oxycodone HCl [From Percocet] Allergy (Intermediate, Verified 08/21/19 13:00) Past Medical History - General Information source: Patient - Social History Smoking Status: Current Every Day Smoker Frequency of alcohol use: None Drug Abuse: None Family History: Reviewed & Not Pertinent Patient has homicidal ideation: No - Past Medical History Cardiac Medical History: Reports: Hx Hypertension Neurological Medical History: Reports: Hx Migraine, Hx Seizures - "Anxiety Induced Seizures" Endocrine Medical History: Reports: Hx Diabetes Mellitus Type 2 Renal/ Medical History: Reports: Hx End Stage Renal Disease - kidney cancer, Hx Kidney Stones - had surgery last dec/jan. Denies: Hx Peritoneal Dialysis Musculoskeletal Medical History: Reports Hx Fibromyalgia Psychiatric Medical History: Reports: Hx Anxiety, Hx Depression - anxiety Past Surgical History: Reports: Hx Section - 3, Hx Cholecystectomy, Hx Gynecologic Surgery - DNC x8, Hx Kidney (Renal Surgery), Hx Orthopedic Surgery - foot surgery - Immunizations Immunizations up to date: Yes Hx Diphtheria, Pertussis, Tetanus Vaccination: Yes Review of Systems - Review of Systems Constitutional: denies: Chills, Fever Cardiovascular: denies: Chest pain, Palpitations Respiratory: denies: Cough, Short of breath -: Yes All other systems reviewed and negative Physical Exam - Vital signs Vitals: Temp Pulse Resp BP Pulse Ox 97.4 F 88 19 153/105 H 98 10/09/19 05:40 10/09/19 05:40 10/09/19 05:40 10/09/19 05:40 10/09/19 05:40 Interpretation: Hypertensive - General General appearance: Appears well, Alert - HEENT Head: Normocephalic, Atraumatic Eyes: Normal Pupils: PERRL - Respiratory Respiratory status: No respiratory distress Chest status: Nontender Breath sounds: Normal Chest palpation: Normal - Cardiovascular Rhythm: Regular Heart sounds: Normal auscultation Murmur: No - Abdominal Inspection: Normal Distension: No distension Bowel sounds: Normal Tenderness: Nontender Organomegaly: No organomegaly - Back Back: Normal, Nontender - Extremities General upper extremity: Normal inspection, Nontender, Normal color, Normal ROM, Normal temperature General lower extremity: Normal inspection, Nontender, Normal color, Normal ROM, Normal temperature, Normal weight bearing. No: Kenneth's sign - Neurological Neuro grossly intact: Yes Cognition: Normal Orientation: AAOx4 Arnulfo Coma Scale Eye Opening: Spontaneous [place] Coma Scale Verbal: Oriented Arnulfo Coma Scale Motor: Obeys Commands Arnulfo Coma Scale Total: 15 Speech: Normal Motor strength normal: LUE, RUE, LLE, RLE Sensory: Normal - Psychological Associated symptoms: Normal affect, Normal mood - Skin Skin Temperature: Warm Skin Moisture: Dry Skin Color: Normal Course - Re-evaluation Re-evalutation: 10/09/19 08:49 Patient states that she feels significantly better at this time. She states that her pain is better. Ultrasound shows a stone but no hydro-. She has no signs of infection laboratories are unremarkable. Vital signs are stable. She is smiling and happy. She does not want any pain medication for home. - Vital Signs Vital signs: Temp Pulse Resp BP Pulse Ox 98.3 F 78 16 140/88 H 100 10/09/19 08:08 10/09/19 08:08 10/09/19 08:08 10/09/19 08:08 10/09/19 08:08 - Laboratory Result Diagrams: 10/09/19 06:00 10/09/19 06:00 Laboratory results interpreted by me: 10/09/19 10/09/19 10/09/19 06:00 06:00 07:45 Eos % (Auto) 6.6 H Glucose 132 H Calcium 10.5 H Urine Blood MODERATE H - Diagnostic Test Radiology reviewed: Image reviewed, Reports reviewed Discharge - Discharge Clinical Impression: Nephrolithiasis, Ureterolithiasis Condition: Stable Disposition: HOME, SELF-CARE Instructions: Kidney Stone ([facility]) Additional Instructions: follow up with your Urologist as soon as possible Forms: Return to Work Referrals: JANICE BEAL MD [Primary Care Provider] - Follow up as needed
[2019-10-09 09:04] VITALS: BP 117/93
== END 2019-10-09 09:04 | disposition home or self-care (01) ==
LOC: ER 05:35
DX: N20.2 Calculus of kidney with calculus of ureter (principal); R10.9 Unspecified abdominal pain; R11.0 Nausea; Z88.8 Allergy status to other drugs, medicaments and biological substances; F17.200 Nicotine dependence, unspecified, uncomplicated; I10 Essential (primary) hypertension; E11.9 Type 2 diabetes mellitus without complications
CPT/HCPCS: 96376; 99284; 96361; 96374; 96375; 36415; 83690; 84703; 85025; 80053; 81001; 76775; J1885; J2270; J2405; J7030

== ENCOUNTER 2019-11-06 11:11 | Emergency (ER) | payer MEDICARE, MEDICAID ==
[2019-11-06] MEDS ORDERED: MORPHINE SULFATE 10 MG/ML INJ IV ONE ×2 (11:28→13:59)
[2019-11-06] MEDS ORDERED: ONDANSETRON HCL INJ/PF 4 MG/2 ML SDV IV ONE (11:28)
--- NOTE | 2019-11-06 11:31 | ER Document Report ---
ED Medical Screen (RME) - General Chief Complaint: Flank Pain Stated Complaint: LOW BACK PAIN,PAINFUL URINATION Time Seen by Provider: 11/06/19 11:24 Primary Care Provider: JANICE BEAL MD [Primary Care Provider] - Follow up as needed Notes: Patient is a 49-year-old female who presents emergency department with a chief complaint of bilateral flank pain with her right flank being more painful than the left. Patient states that Dr. lisa in [place] follows her for her kidney stones. She states that she is supposed to have surgery, but surgery has been pushed back. Patient states that her pain got worse about 4 days ago. Exam: Bilateral CVA tenderness with right tenderness greater than left. I have greeted and performed a rapid initial assessment of this patient. A comprehensive ED assessment and evaluation of the patient, analysis of test results and completion of medical decision making process will be conducted by an additional ED providers. TRAVEL OUTSIDE OF THE [place] IN LAST 30 DAYS: No - Related Data Allergies/Adverse Reactions: hydrocodone Allergy (Intermediate, Verified 11/06/19 11:23) Itching oxycodone HCl [From Percocet] Allergy (Intermediate, Verified 11/06/19 11:23) Home Medications: dm. htn. fibromyalgia. kidney stones. depression Past Medical History - Social History Chew tobacco use (# tins/day): No Frequency of alcohol use: None Drug Abuse: None - Past Medical History Cardiac Medical History: Reports: Hx Hypertension Neurological Medical History: Reports: Hx Migraine, Hx Seizures - "Anxiety Induced Seizures" Endocrine Medical History: Reports: Hx Diabetes Mellitus Type 2 Renal/ Medical History: Reports: Hx End Stage Renal Disease - kidney cancer, Hx Kidney Stones - had surgery last dec/jan. Denies: Hx Peritoneal Dialysis Musculoskeltal Medical History: Reports Hx Fibromyalgia Psychiatric Medical History: Reports: Hx Anxiety, Hx Depression - anxiety Past Surgical History: Reports: Hx Section - 3, Hx Cholecystectomy, Hx Gynecologic Surgery - DNC x8, Hx Kidney (Renal Surgery), Hx Orthopedic Surgery - foot surgery - Immunizations Immunizations up to date: Yes Hx Diphtheria, Pertussis, Tetanus Vaccination: Yes Physical Exam - Vital signs Vitals: Temp Pulse Resp BP Pulse Ox 97.6 F 82 18 145/88 H 98 11/06/19 11:18 11/06/19 11:18 11/06/19 11:18 11/06/19 11:18 11/06/19 11:18 Course - Vital Signs Vital signs: Temp Pulse Resp BP Pulse Ox 97.6 F 82 18 145/88 H 98 11/06/19 11:24 11/06/19 11:18 11/06/19 11:18 11/06/19 11:18 11/06/19 11:18 Doctor's Discharge - Discharge Referrals: JANICE BEAL MD [Primary Care Provider] - Follow up as needed
[2019-11-06] MEDS ORDERED: NORMAL SALINE 1000 ML 1,000 ML IV ONE (11:44)
[2019-11-06 11:54] LABS: ABSOLUTE BASOPHILS # (AUTO) 0.1 10^3/uL (0.0-0.2); ABSOLUTE EOSINOPHILS # (AUTO) 0.9 10^3/uL (0.0-0.6); ABSOLUTE LYMPHOCYTES (AUTO) 2.1 10^3/uL (0.5-4.7); ABSOLUTE MONOCYTES (AUTO) 0.7 10^3/uL (0.1-1.4); ABSOLUTE NEUT (AUTO) 5.7 10^3/uL (1.7-8.2); BASOPHILS % (AUTO) 0.9 % (0-2); EOSINOPHILS % (AUTO) 9.6 % (0-6); HEMATOCRIT 41.5 % (36.0-47.0); HEMOGLOBIN 13.9 g/dL (12.0-15.5); LYMPHOCYTES % (AUTO) 22.5 % (13-45); MEAN CORPUSCULAR HEMOGLOBIN 28.9 pg (27.0-33.4); MEAN CORPUSCULAR HGB CONC 33.6 g/dL (32.0-36.0); MEAN CORPUSCULAR VOLUME 86 fl (80-97); MONOCYTES % (AUTO) 7.3 % (3-13); PLATELET COUNT 283 10^3/uL (150-450); RED BLOOD COUNT 4.81 10^6/uL (3.72-5.28); RED CELL DISTRIBUTION WIDTH 14.4 % (11.5-14.0); SEGMENTED NEUTROPHILS % (AUTO) 59.7 % (42-78); TOTAL CELLS COUNTED % (AUTO) 100 %; WHITE BLOOD COUNT 9.5 10^3/uL (4.0-10.5)
[2019-11-06 12:06] LABS: APPEARANCE,URINE SLIGHTLY-CLOUDY; BILIRUBIN,URINE NEGATIVE (NEGATIVE); COLOR,URINE YELLOW; GLUCOSE, URINE NEGATIVE (NEGATIVE); KETONES,URINE NEGATIVE (NEGATIVE); LEUKOCYTE ESTERASE,URINE NEGATIVE (NEGATIVE); NITRITE,URINE NEGATIVE (NEGATIVE); PROTEIN,URINE NEGATIVE (NEGATIVE); URINE SPECIFIC GRAVITY 1.024; UROBILINOGEN,URINE NEGATIVE mg/dL (<2.0)
[2019-11-06 12:19] LABS: ALBUMIN 4.8 g/dL (3.5-5.0); ALKALINE PHOSPHATASE 79 U/L (38-126); ANION GAP 7 (5-19); ASPARTATE AMINO TRANSFERASE 30 U/L (14-36); BILIRUBIN,TOTAL 0.3 mg/dL (0.2-1.3); BLOOD UREA NITROGEN 12 mg/dL (7-20); CALCIUM 11.1 mg/dL (8.4-10.2); CARBON DIOXIDE 28 mmol/L (22-30); CHLORIDE 103 mmol/L (98-107); GLUCOSE 126 mg/dL (75-110); POTASSIUM 5.2 mmol/L (3.6-5.0); TOTAL PROTEIN 7.7 g/dL (6.3-8.2)
--- NOTE | 2019-11-06 12:45 | RADIOLOGY REPORT (SQ) ---
EXAM DESCRIPTION: U/S RETROPERITON (RENAL/AORTA) IMAGES COMPLETED DATE/TIME: 11/06/2019 12:30 pm REASON FOR STUDY: bilateral flank pain; hx of kidney stones COMPARISON: 10/09/2019 TECHNIQUE: Dynamic and static grayscale images acquired of the kidneys and bladder and recorded on P ACS. Additional selected color Doppler and spectral images recorded. LIMITATIONS: None. FINDINGS: RIGHT KIDNEY: Normal size, 11 cm. Normal echogenicity. No solid or suspicious masses. No h ydronephrosis. 11 mm lower calyceal calculus. LEFT KIDNEY: Partial nephrectomy. 8.8 cm. Normal echogenicity. No solid or suspicious masses. No hy dronephrosis. 6 mm lower pole calculus. BLADDER: Bladder was not filled and therefore not evaluated. OTHER FINDINGS: No other significant finding. IMPRESSION: There is an intrarenal calculus in a lower pole calyx in each kidney. No hydronephrosis . TECHNICAL DOCUMENTATION: JOB ID: [id number] 2010 [employer]- All Rights Reserved Reading location - IP/workstation name: [email or web address]
[2019-11-06] MEDS ORDERED: MORPHINE SULFATE 10 MG/ML INJ ONE (13:09)
[2019-11-06] MEDS ORDERED: ONDANSETRON HCL INJ/PF 4 MG/2 ML SDV ONE (13:09)
[2019-11-06] MEDS ORDERED: KETOROLAC TROMETHAMINE INJ/PF 30 MG/1 ML SDV IV ONE (13:59)
--- NOTE | 2019-11-06 14:40 | ER Document Report ---
ED GI/ - General Chief Complaint: Flank Pain Stated Complaint: LOW BACK PAIN,PAINFUL URINATION Time Seen by Provider: 11/06/19 11:24 Primary Care Provider: JANICE BEAL MD [Primary Care Provider] - Follow up as needed Notes: Patient is a 49-year-old female who presents emergency department with a chief complaint of bilateral flank pain. Patient reports that she does follow Dr. Pisano and was scheduled to have a procedure but that it has been getting pushed back due to her diabetes. Patient reports she has had no fever, difficulty urinating. Denies abdominal pain. TRAVEL OUTSIDE OF THE [place] IN LAST 30 DAYS: No - Related Data Allergies/Adverse Reactions: hydrocodone Allergy (Intermediate, Verified 11/06/19 11:23) Itching oxycodone HCl [From Percocet] Allergy (Intermediate, Verified 11/06/19 11:23) Home Medications: dm. htn. fibromyalgia. kidney stones. depression Past Medical History - Social History Smoking Status: Current Every Day Smoker Chew tobacco use (# tins/day): No Frequency of alcohol use: None Drug Abuse: None Family History: Reviewed & Not Pertinent Patient has homicidal ideation: No - Past Medical History Cardiac Medical History: Reports: Hx Hypertension Neurological Medical History: Reports: Hx Migraine, Hx Seizures - "Anxiety Induced Seizures" Endocrine Medical History: Reports: Hx Diabetes Mellitus Type 2 Renal/ Medical History: Reports: Hx End Stage Renal Disease - kidney cancer, Hx Kidney Stones - had surgery last dec/jan. Denies: Hx Peritoneal Dialysis Musculoskeletal Medical History: Reports Hx Fibromyalgia Psychiatric Medical History: Reports: Hx Anxiety, Hx Depression - anxiety Past Surgical History: Reports: Hx Section - 3, Hx Cholecystectomy, Hx Gynecologic Surgery - DNC x8, Hx Kidney (Renal Surgery), Hx Orthopedic Surgery - foot surgery - Immunizations Immunizations up to date: Yes Hx Diphtheria, Pertussis, Tetanus Vaccination: Yes Review of Systems - Review of Systems Constitutional: No symptoms reported EENT: No symptoms reported Cardiovascular: No symptoms reported Respiratory: No symptoms reported Gastrointestinal: See HPI Genitourinary: See HPI Female Genitourinary: No symptoms reported Musculoskeletal: No symptoms reported Skin: No symptoms reported Hematologic/Lymphatic: No symptoms reported Neurological/Psychological: No symptoms reported Physical Exam - Vital signs Vitals: Temp Pulse Resp BP Pulse Ox 97.6 F 82 18 145/88 H 98 11/06/19 11:18 11/06/19 11:18 11/06/19 11:18 11/06/19 11:18 11/06/19 11:18 - Notes Notes: GENERAL: Unable to find position of comfort, leaning over bed HEAD: Atraumatic, normocephalic. EYES: Pupils equal round and reactive to light, extraocular movements intact, sclera anicteric, conjunctiva are normal. ENT: Nares patent, oropharynx clear without exudates. Moist mucous membranes. NECK: Normal range of motion, supple without lymphadenopathy or JVD. LUNGS: Breath sounds clear to auscultation bilaterally and equal. No wheezes rales or rhonchi. HEART: Regular rate and rhythm without murmurs, rubs or gallops. ABDOMEN: Soft, nontender, normoactive bowel sounds. No guarding, no rebound. No masses appreciated. BACK: No cervical, thoracic, lumbar midline tenderness. No saddle anesthesia, normal distal neurovascular exam. No CVA tenderness. GENITOURINARY: Deferred. EXTREMITIES: Normal range of motion, no pitting or edema. No clubbing or cyanosis. NEUROLOGICAL: Cranial nerves II through XII grossly intact. Normal speech, normal gait. PSYCH: Normal mood, normal affect. SKIN: Warm, Dry, normal turgor, no rashes or lesions noted. Course - Re-evaluation Re-evalutation: 11/06/19 14:40 Patient in severe pain, reports bilateral flank pain. Has known history of kidney stones. Does have a urologist and was recently supposed to have a procedure but that this has been getting rescheduled multiple times. Patient reports the pain developed 4 days ago. Denies fever. Denies difficulty urinating. Patient's urinalysis unremarkable, does show large blood which is consistent with renal calculus, no leukocytes or signs of infection within the urine. We will get the patient's pain under control and discharge with strict return precautions as well as close urology follow-up. 15:20 Patient much more comfortable after receiving an additional dose of morphine as well as Toradol. Will prescribe the patient Toradol. Ultimately the patient needs to follow-up with her urologist. Patient states she did call her uro logist and that they are supposed to call her back with an appointment. Did give the patient strict return precautions. Patient nontoxic-appearing in no acute distress at time of reevaluation. - Vital Signs Vital signs: Temp Pulse Resp BP Pulse Ox 98.2 F 74 18 128/70 H 99 11/06/19 15:00 11/06/19 15:00 11/06/19 15:00 11/06/19 15:00 11/06/19 15:00 - Laboratory Result Diagrams: 11/06/19 11:35 11/06/19 11:35 Laboratory results interpreted by me: 11/06/19 11/06/19 11:35 11:35 RDW 14.4 H Eos % (Auto) 9.6 H Absolute Eos (auto) 0.9 H Potassium 5.2 H Glucose 126 H Calcium 11.1 H ALT 50 H 11/06/19 14:40 Laboratory 11/06/19 11/06/19 11/06/19 11:35 11:35 11:35 WBC 9.5 RBC 4.81 Hgb 13.9 Hct 41.5 MCV 86 MCH 28.9 MCHC 33.6 RDW 14.4 H Plt Count 283 Lymph % (Auto) 22.5 [place] % (Auto) 7.3 Eos % (Auto) 9.6 H Baso % (Auto) 0.9 Absolute Neuts (auto) 5.7 Absolute Lymphs (auto) 2.1 Absolute Monos (auto) 0.7 Absolute Eos (auto) 0.9 H Absolute Basos (auto) 0.1 Seg Neutrophils % 59.7 Sodium 138.3 Potassium 5.2 H Chloride 103 Carbon Dioxide 28 Anion Gap 7 BUN 12 Creatinine 0.60 Est GFR ( Amer) > 60 Est GFR (MDRD) Non-Af > 60 Glucose 126 H Calcium 11.1 H Total Bilirubin 0.3 Direct Bilirubin 0.0 Neonat Total Bilirubin Not Reportable Neonat Direct Bilirubin Not Reportable Neonat Indirect Bili Not Reportable AST 30 ALT 50 H Alkaline Phosphatase 79 Total Protein 7.7 Albumin 4.8 Urine Color YELLOW Urine Appearance SLIGHTLY-CLOUDY Urine pH 7.0 Ur Specific Page 1.024 Urine Protein NEGATIVE Urine Glucose (UA) NEGATIVE Urine Ketones NEGATIVE Urine Blood NEGATIVE Urine Nitrite NEGATIVE Urine Bilirubin NEGATIVE Urine Urobilinogen NEGATIVE Ur Leukocyte Esterase NEGATIVE Urine WBC (Auto) 4 Urine RBC (Auto) 7 Squamous Epi Cells Auto 10 Urine Mucus (Auto) FEW Urine Ascorbic Acid NEGATIVE - Diagnostic Test Radiology reviewed: Reports reviewed Radiology results interpreted by me: 11/06/19 14:40 Renal Ultrasound 11/06/19 11:29 IMPRESSION: There is an intrarenal calculus in a lower pole calyx in each deborah escamilla. No hydronephrosis. Discharge - Discharge Clinical Impression: Bilateral kidney stones Condition: Stable Disposition: HOME, SELF-CARE Additional Instructions: Today you were seen in the emergency department emergency department for bilateral flank pain. Ultrasound did show bilateral kidney stones. Does not appear that they are passing through the ureter at this time. It is very important that you follow-up with your urologist, Dr. Pisano. Please call his office today to make them aware that you were seen in the emergency department for pain to see if they can see you in the office as a follow-up. Kidney Stone You are passing or have passed a kidney stone. These stones are usually due to increased calcium or uric acid concentrations in your urine. Stones within the kidney itself are not painful. The pain occurs as the stone leaves the kidney to pass down the long tube, called the ureter, leading to the bladder. If the stone is small, it will usually pass by itself. Most patients can pass the stone at home. You will usually receive medications for pain, nausea or vomiting, and sometimes a medication to assist in passing the kidney stone. However, if the pain is very severe or if vomiting prevents you from taking oral pain medications, you may need to return for further treatment. Drink three or four quarts of fluids per day. You will be given pain medication (if needed) and urine strainers. Strain all your urine to see if the stone passes. If your doctor has asked you to bring the stone in for analysis, return with the stone once it has passed. Return if pain or vomiting become severe, if you develop a high fever, if you are unable to pass your urine, or if other unusual symptoms occur. Prescriptions: Ketorolac Tromethamine [Toradol 10 mg Tablet] 10 mg PO Q6HP PRN #15 tablet PRN Reason: Referrals: JANICE BEAL MD [Primary Care Provider] - Follow up as needed
[2019-11-06 16:07] VITALS: BP 128/70
== END 2019-11-06 15:02 | disposition home or self-care (01) ==
LOC: ER 11:11
DX: N20.0 Calculus of kidney (principal); R10.9 Unspecified abdominal pain; M54.5 Low back pain; R30.0 Dysuria; F17.200 Nicotine dependence, unspecified, uncomplicated; E11.22 Type 2 diabetes mellitus with diabetic chronic kidney disease; I12.0 Hypertensive chronic kidney disease with stage 5 chronic kidney disease or end stage renal disease; N18.6 End stage renal disease; Z88.6 Allergy status to analgesic agent; Z90.49 Acquired absence of other specified parts of digestive tract; Z87.442 Personal history of urinary calculi
CPT/HCPCS: 96376; 99284; 96361; 96374; 96375; 36415; 87086; 85025; 80053; 81001; 76770; J1885; J2270; J2405; J7030

== ENCOUNTER 2020-06-09 21:53 | Emergency (ER) | payer MEDICARE, MEDICAID ==
[2020-06-09 22:02] VITALS: BP 159/96
[2020-06-09] MEDS ORDERED: INSULIN REG, HUMAN 100 UNIT/ML 3 ML VIAL (PYX) IV ONE (23:13)
[2020-06-09] MEDS ORDERED: NORMAL SALINE 1000 ML 2,000 ML IV ONE (23:13)
--- NOTE | 2020-06-09 23:17 | ER Document Report ---
ED Medical Screen (RME) - General Chief Complaint: High Blood Sugar Stated Complaint: HIGH BLOOD SUGAR Time Seen by Provider: 06/09/20 23:05 Primary Care Provider: JANICE BEAL MD [Primary Care Provider] - Follow up as needed TRAVEL OUTSIDE OF THE [place] IN LAST 30 DAYS: No - HPI Patient complains to provider of: High blood sugar, right side pain Notes: 06/09/20 23:15 Patient here with complaints of elevated blood sugar and right side pain. The patient is a insulin-dependent diabetic. She states she is almost out of her insulin. She reports eating pasta Renan for dinner. She checked her blood sugar and it was almost 600 so she came in to be evaluated. She denies any nausea, vomiting, diarrhea. She also states that 2 days ago she was standing on her air conditioner cleaning her gutters when she fell and hit her right ribs and side on the handle of her lawnmower. She saw her primary care doctor who did plain x-rays and told her that they were negative. She continues to have a lot of pain in this area. Exam: Nontoxic, no distress. Lungs clear and equal throughout. Heart sounds normal. Ecchymosis and tenderness to the right ribs and right flank. An initial examination was made on the patient as part of the triage process, and it was determined a more comprehensive evaluation was necessary. Initial orders were placed and patient was transferred to another provider in the ED who assumed care and finished evaluation and plan. - Related Data Allergies/Adverse Reactions: hydrocodone Allergy (Intermediate, Verified 06/09/20 23:06) Itching oxycodone HCl [From Percocet] Allergy (Intermediate, Verified 06/09/20 23:06) Past Medical History - Past Medical History Cardiac Medical History: Reports: Hx Hypertension Neurological Medical History: Reports: Hx Migraine, Hx Seizures - "Anxiety Induced Seizures" Endocrine Medical History: Reports: Hx Diabetes Mellitus Type 2 Renal/ Medical History: Reports: Hx End Stage Renal Disease - kidney cancer, Hx Kidney Stones - had surgery last dec/jan. Denies: Hx Peritoneal Dialysis Musculoskeltal Medical History: Reports Hx Fibromyalgia Psychiatric Medical History: Reports: Hx Anxiety, Hx Depression - anxiety Past Surgical History: Reports: Hx Section - 3, Hx Cholecystectomy, Hx Gynecologic Surgery - DNC x8, Hx Kidney (Renal Surgery), Hx Orthopedic Surgery - foot surgery - Immunizations Immunizations up to date: Yes Hx Diphtheria, Pertussis, Tetanus Vaccination: Yes Physical Exam - Vital signs Vitals: Temp Pulse Resp BP Pulse Ox 98.2 F 101 H 20 159/96 H 96 06/09/20 22:01 06/09/20 22:01 06/09/20 22:01 06/09/20 22:01 06/09/20 22:01 Course - Vital Signs Vital signs: Temp Pulse Resp BP Pulse Ox 98.2 F 101 H 20 159/96 H 96 06/09/20 22:01 06/09/20 22:01 06/09/20 22:01 06/09/20 22:01 06/09/20 22:01 Doctor's Discharge - Discharge Referrals: JANICE BEAL MD [Primary Care Provider] - Follow up as needed
[2020-06-09 23:56] LABS: ABSOLUTE BASOPHILS # (AUTO) 0.1 10^3/uL (0.0-0.2); ABSOLUTE EOSINOPHILS # (AUTO) 0.3 10^3/uL (0.0-0.6); ABSOLUTE LYMPHOCYTES (AUTO) 3.7 10^3/uL (0.5-4.7); ABSOLUTE MONOCYTES (AUTO) 0.9 10^3/uL (0.1-1.4); ABSOLUTE NEUT (AUTO) 9.3 10^3/uL (1.7-8.2); BASOPHILS % (AUTO) 0.6 % (0-2); EOSINOPHILS % (AUTO) 1.8 % (0-6); HEMATOCRIT 43.1 % (36.0-47.0); HEMOGLOBIN 14.5 g/dL (12.0-15.5); LYMPHOCYTES % (AUTO) 25.8 % (13-45); MEAN CORPUSCULAR HEMOGLOBIN 28.2 pg (27.0-33.4); MEAN CORPUSCULAR HGB CONC 33.6 g/dL (32.0-36.0); MEAN CORPUSCULAR VOLUME 84 fl (80-97); MONOCYTES % (AUTO) 6.6 % (3-13); PLATELET COUNT 276 10^3/uL (150-450); RED BLOOD COUNT 5.13 10^6/uL (3.72-5.28); RED CELL DISTRIBUTION WIDTH 13.8 % (11.5-14.0); SEGMENTED NEUTROPHILS % (AUTO) 65.2 % (42-78); TOTAL CELLS COUNTED % (AUTO) 100 %; WHITE BLOOD COUNT 14.3 10^3/uL (4.0-10.5)
[2020-06-09 23:57] LABS: VENOUS BLOOD BASE EXCESS 4.4 mmol/L; VENOUS BLOOD HCO3 30.9 mmol/L (20-32); VENOUS BLOOD PH 7.38 (7.30-7.42)
[2020-06-10 00:09] LABS: APPEARANCE,URINE CLEAR; BILIRUBIN,URINE NEGATIVE (NEGATIVE); COLOR,URINE STRAW; GLUCOSE, URINE >=500 mg/dL (NEGATIVE); KETONES,URINE NEGATIVE (NEGATIVE); LEUKOCYTE ESTERASE,URINE SMALL (NEGATIVE); NITRITE,URINE NEGATIVE (NEGATIVE); PROTEIN,URINE NEGATIVE (NEGATIVE); URINE SPECIFIC GRAVITY 1.031; UROBILINOGEN,URINE NEGATIVE mg/dL (<2.0)
[2020-06-10 00:13] LABS: ALBUMIN 4.7 g/dL (3.5-5.0); ALKALINE PHOSPHATASE 110 U/L (38-126); ANION GAP 7 (5-19); ASPARTATE AMINO TRANSFERASE 26 U/L (14-36); BILIRUBIN,DIRECT 0.2 mg/dL (0.0-0.4); BILIRUBIN,TOTAL 0.4 mg/dL (0.2-1.3); BLOOD UREA NITROGEN 18 mg/dL (7-20); CALCIUM 11.9 mg/dL (8.4-10.2); CARBON DIOXIDE 37 mmol/L (22-30); CHLORIDE 87 mmol/L (98-107); TOTAL PROTEIN 7.9 g/dL (6.3-8.2)
[2020-06-10 00:23] LABS: GLUCOSE 484 mg/dL (75-110)
== END 2020-06-10 08:57 | disposition left against medical advice (07) ==
LOC: ER 21:53
DX: E11.65 Type 2 diabetes mellitus with hyperglycemia (principal); I10 Essential (primary) hypertension; Z79.4 Long term (current) use of insulin; Z91.14 Patient's other noncompliance with medication regimen; Z85.528 Personal history of other malignant neoplasm of kidney
CPT/HCPCS: 36415; 80053; 81001; 82803; 82962; 83690; 85025; 99281